=== PATIENT | female | born 1965 | race Two or more races ===

== ENCOUNTER 2020-04-17 14:42 | Outpatient (REF) | payer MEDICAID, SELFPAY | END 2020-04-17 14:43 | disposition home or self-care (01) | LOC: HO.LNP 14:42 | PROVIDERS: Visit Provider Internal Medicine Medical Oncology | DX: Z12.4 Encounter for screening for malignant neoplasm of cervix (principal) | CPT/HCPCS: 88142 ==

== ENCOUNTER 2020-05-21 11:01 | Emergency (ER) | payer MEDICAID, SELFPAY ==
--- NOTE | 2020-05-21 11:27 | ED_ITS ---
HPI - Psych General Chief Complaint: Psychiatric Symptoms <DIONISIO Henderson - Last Filed: 05/23/20 11:26> Stated Complaint: SI W/PLAN <DIONISIO Henderson - Last Filed: 05/23/20 11:26> Time Seen by Provider: 05/21/20 11:27 <DIONISIO Henderson - Last Filed: 05/23/20 11:26> Source: patient and EMS <DIONISIO Henderson - Last Filed: 05/23/20 11:26> Mode of arrival: EMS <DIONISIO Henderson - Last Filed: 05/23/20 11:26> Limitations: no limitations <DIONISIO Henderson - Last Filed: 05/23/20 11:26> History of Present Illness HPI Narrative: 55 y/o female with history of depression, anxiety, HTN, HLD and history of prior suicide attempt presents to the ED from home via EMS with reports of auditory hallucinations with voices telling her to kill herself. She reports anxiety on arrival. She has been depressed lately. She reports compliance with her antidepressant and benzo for anxiety. She is vague in her history. She is nervous and scared because of the voices. She states they are better since she got to the hospital. She denies drug or alcohol use. <DIONISIO Henderson - Last Filed: 05/23/20 11:26> MD complaint: suicidal ideation, anxiety and hallucinations <DIONISIO Henderson - Last Filed: 05/23/20 11:26> Onset (ago): day(s) <DIONISIO Henderson - Last Filed: 05/23/20 11:26> Duration: intermittent <DIONISIO Henderson - Last Filed: 05/23/20 11:26> History of same: Yes <DIONISIO Henderson - Last Filed: 05/23/20 11:26> Relieving factors: none <DIONISIO Henderson - Last Filed: 05/23/20 11:26> Exacerbating factors: none <DIONISIO Henderson - Last Filed: 05/23/20 11:26> Associated psychiatric symptoms: depression <DIONISIO Henderson - Last Filed: 05/23/20 11:26> Associated symptoms: denies other symptoms <DIONISIO Henderson - Last Filed: 05/23/20 11:26> Treatments prior to arrival: none <DIONISIO Henderson Last Filed: 05/23/20 11:26> If self harm: admits thoughts of self harm <DIONISIO Henderson Last Filed: 05/23/20 11:26> Related Data Home Medications: Home Medications Medication Instructions Recorded Confirmed benztropine 1 mg PO BID 05/21/20 05/21/20 citalopram 30 mg PO DAILY 05/21/20 05/21/20 clonazepam 1 mg PO BID 05/21/20 05/21/20 clonazepam 1 mg PO DAILY PRN 05/21/20 05/21/20 diltiazem HCl 60 mg PO BEDTIME 05/21/20 05/21/20 diltiazem HCl [Cartia XT] 240 mg PO DAILY 05/21/20 05/21/20 fluticasone propionate [Flovent 1 puff PO BID 05/21/20 05/21/20 HFA] hydroxyzine HCl 10 - 20 mg PO BID PRN 05/21/20 05/21/20 omeprazole 20 mg PO DAILY 05/21/20 05/21/20 oxcarbazepine 600 mg PO TID 05/21/20 05/21/20 perphenazine 4 mg PO BID 05/21/20 05/21/20 simvastatin 40 mg PO BEDTIME 05/21/20 05/21/20 <DIONISIO Henderson Last Filed: 05/23/20 11:26> Allergies/Adverse Reactions: Allergies Allergy/AdvReac Type Severity Reaction Status Date / Time No Known Allergies Allergy Unverified 11/10/19 16:06 [No Known Allergies*] <DIONISIO Henderson Last Filed: 05/23/20 11:26> Review of Systems Review of Systems: Constitutional: No Fever, No Chills Cardiovascular: No Chest Pain, No SOB Respiratory: No Cough, No Sputum Gastrointestinal: No Nausea, No Vomiting, No Diarrhea, No abdominal Pain Genitourinary: No Dysuria, No Urinary Frequency, No Hematuria Musculoskeletal: No joint pain, No Myalgias Skin: No Skin Lesions, No rash Neuro: No Weakness, No Numbness, No Dizziness, No Headache Psych: + Anxiety/Panic, + Depression, +AH Heme/Lymph: No Bruising, No Lymphadenopathy <DIONISIO Henderson - Last Fi led: 05/23/20 11:26> [facility] Past Medical History Attestation statement: The following information was validated with the patient. <DIONISIO Henderson - Last Filed: 05/23/20 11:26> Medical History: Medical History Anxiety Depression <DIONISIO Henderson - Last Filed: 05/23/20 11:26> Physical Exam Vital Signs: Vital Signs: Last Vital Signs Temp 97.5 F 05/23/20 08:12 Pulse 74 05/23/20 08:12 Resp 17 05/23/20 08:12 BP 143/85 H 05/23/20 08:12 Pulse Ox 98 05/23/20 08:12 Body Mass Index 26.3 Appearance: Alert. Oriented X3. No acute distress. Eyes: Pupils equal, round and reactive to light. ENT: Pharynx normal. Neck: Normal inspection. Neck supple. CVS: Normal heart rate and rhythm. Pulses normal. Respiratory: No respiratory distress. Breath sounds normal. Abdomen: Soft and nontender. +BS x4 Skin: Skin warm and dry. Normal skin color. Normal skin turgor. No rashes. Extremities: No lower extremity edema. Neuro: Oriented X 3. No motor deficit. No sensory deficit. Steady gait. Vague historian, 1 word answers. <DIONISIO Henderson - Last Filed: 05/23/20 11:26> Vital Signs: Last Vital Signs Temp 97.5 F 05/23/20 08:12 Pulse 74 05/23/20 08:12 Resp 17 05/23/20 08:12 BP 143/85 H 05/23/20 08:12 Pulse Ox 98 05/23/20 08:12 Body Mass Index 26.3 <Liberty Zacarias NP - Last Filed: 05/22/20 01:37> Vital Signs: Last Vital Signs Temp 97.5 F 05/23/20 08:12 Pulse 74 05/23/20 08:12 Resp 17 05/23/20 08:12 BP 143/85 H 05/23/20 08:12 Pulse Ox 98 05/23/20 08:12 Body Mass Index 26.3 <Dudley Matson MD - Last Filed: 06/08/20 13:38> Course Course Course Narrative: 55 y/o female presenting with hearing voices that telling her to harm herself and kill herself. Will get metabolic workup, UA, Utox and have her evaluated by N. <DIONISIO Henderson - Last Filed: 05/23/20 11:26> I have reviewed the chart <Dudley Matson MD - Last Filed: 06/08/20 13:38> Reevaluation(s) Reevaluation #1: Physician observation started at 2:15 pm. Patient placed in physician observation because patient is awaiting N evaluation for the possible need of inpatient psych admission. At the time observation was started patient's vital signs were stable. Patient is alert and oriented. Neuro exam is non-focal. CV: RRR and lungs are clear. Medication reconciliation is pending. Will continue to monitor. <DIONISIO Henderson - Last Filed: 05/23/20 11:26> MDM - Psych Lab Data Result diagrams: : 05/21/20 12:40 05/21/20 12:39 <DIONISIO Henderson - Last Filed: 05/23/20 11:26> Labs: Lab Results 05/21/20 05/21/20 05/21/20 Range/Units 12:39 12:39 12:40 WBC 6.0 (4.8-10.8) X10*3/uL RBC 3.62 L (4.20-5.50) X10*6/uL Hgb 12.7 (12.0-16.0) g/dl Hct 35.4 L (37-47) % MCV 97.8 (80-98) fL MCH 35.1 H (27.0-33.0) pg MCHC 35.9 H (31.0-35.0) g/dl RDW 12.3 (11.0-16.0) % Plt Count 165 (160-400) X10*3/uL MPV 9.0 L (9.4-12.3) fL Immature Gran % (Auto) 0.5 H (0.0-0.4) % Neut % (Auto) 60.0 (45-73) % Lymph % (Auto) 28.3 (20-40) % [place] % (Auto) 9.7 (2-11) % Eos % (Auto) 0.8 (0-4) % Baso % (Auto) 0.7 (0-2) % Lymph # (Auto) 1.7 (1.2-4.9) X10*3/uL [place] # (Auto) 0.6 (0.1-1.2) X10*3/uL Eos # (Auto) 0.1 (0.0-0.4) X10*3/uL Baso # (Auto) 0.0 (0.0-0.2) X10*3/uL Abs Immat Gran (auto) 0.03 (0.00-0.03) X10*3/uL Absolute Neuts (auto) 3.6 (2.0-8.3) X10*3/uL Absolute Nucleated RBC 0.000 (0.0-0.012) X10*3/uL Nucleated RBC % (auto) 0.0 (0.0-0.2) /100WBC Sodium 132 L (135-145) mmol/L Potassium 3.8 (3.3-5.1) mmol/L Chloride 97 (96-108) mmol/L Carbon Dioxide 25 (22-29) mmol/L Anion Gap 14 (12-20) BUN 8 L (9-16) mg/dL Creatinine 0.75 (0.5-1.4) mg/dL Estim Creat Clear Calc 76.9 Estimated GFR > 60 Random Glucose 72 (60-115) mg/dL Calcium 8.7 (8.4-10.2) mg/dL Magnesium 2.1 (1.6-2.6) mg/dL Total Bilirubin 0.3 (0.0-1.0) mg/dL Direct Bilirubin 0.2 (0.0-0.5) mg/dL AST 24 (5-31) U/L ALT 21 (0-31) U/L Alkaline Phosphatase 78 (39-117) U/L Total Protein 7.6 (6.5-8.0) g/dL Albumin 4.6 (3.5-5.0) g/dL Urine Color Urine Appearance Urine pH (5.0-8.0) Ur Specific [place] (1.005-1.025) Urine Protein (NEG-TRACE) MG/DL Urine Glucose (UA) (NEG) MG/DL Urine Ketones (NEG) MG/DL Urine Blood (NEG) Urine Nitrite (NEG) Ur Leukocyte Esterase (NEG) Urine RBC (0) /HPF Urine WBC (0-4) /HPF Ur Squamous Epith Cells /LPF Amorphous Sediment /LPF Urine Bacteria /LPF Urine Opiates Screen (Not Detect) Ur Barbiturates Screen (Not Detect) Ur Phencyclidine Scrn (Not Detect) Ur Amphetamines Screen (Not Detect) U Benzodiazepines Scrn (Not Detect) Urine Cocaine Screen (Not Detect) U Marijuana (THC) Screen (Not Detect) Ethyl Alcohol mg/dL COVID-19 ([facility]) Negative (Negative) COVID-19 Clin Com See Note 05/21/20 05/21/20 05/21/20 Range/Units 12:40 12:40 12:40 WBC (4.8-10.8) X10*3/uL RBC (4.20-5.50) X10*6/uL Hgb (12.0-16.0) g/dl Hct (37-47) % MCV (80-98) fL MCH (27.0-33.0) pg MCHC (31.0-35.0) g/dl RDW (11.0-16.0) % Plt Count (160-400) X10*3/uL MPV (9.4-12.3) fL Immature Gran % (Auto) (0.0-0.4) % Neut % (Auto) (45-73) % Lymph % (Auto) (20-40) % [place] % (Auto) (2-11) % Eos % (Auto) (0-4) % Baso % (Auto) (0-2) % Lymph # (Auto) (1.2-4.9) X10*3/uL [place] # (Auto) (0.1-1.2) X10*3/uL Eos # (Auto) (0.0-0.4) X10*3/uL Baso # (Auto) (0.0-0.2) X10*3/uL Abs Immat Gran (auto) (0.00-0.03) X10*3/uL Absolute Neuts (auto) (2.0-8.3) X10*3/uL Absolute Nucleated RBC (0.0-0.012) X10*3/uL Nucleated RBC % (auto) (0.0-0.2) /100WBC Sodium (135-145) mmol/L Potassium (3.3-5.1) mmol/L Chloride (96-108) mmol/L Carbon Dioxide (22-29) mmol/L Anion Gap (12-20) BUN (9-16) mg/dL Creatinine (0.5-1.4) mg/dL Estim Creat Clear Calc Estimated GFR Random Glucose (60-115) mg/dL Calcium (8.4-10.2) mg/dL Magnesium (1.6-2.6) mg/dL Total Bilirubin (0.0-1.0) mg/dL Direct Bilirubin (0.0-0.5) mg/dL AST (5-31) U/L ALT (0-31) U/L Alkaline Phosphatase (39-117) U/L Total Protein (6.5-8.0) g/dL Albumin (3.5-5.0) g/dL Urine Color YELLOW Urine Appearance HAZY Urine pH 7.0 (5.0-8.0) Ur Specific [place] 1.015 (1.005-1.025) Urine Protein NEG (NEG-TRACE) MG/DL Urine Glucose (UA) NEG (NEG) MG/DL Urine Ketones NEG (NEG) MG/DL Urine Blood 2+ H (NEG) Urine Nitrite NEG (NEG) Ur Leukocyte Esterase TRACE H (NEG) Urine RBC 10-14 H (0) /HPF Urine WBC 0-2 (0-4) /HPF Ur Squamous Epith Cells 2+ /LPF Amorphous Sediment 3+ /LPF Urine Bacteria NONE /LPF Urine Opiates Screen Not Detected (Not Detect) Ur Barbiturates Screen Not Detected (Not Detect) Ur Phencyclidine Scrn Not Detected (Not Detect) Ur Amphetamines Screen Not Detected (Not Detect) U Benzodiazepines Scrn Not Detected (Not Detect) Urine Cocaine Screen Not Detected (Not Detect) U Marijuana (THC) Screen POSITIVE H (Not Detect) Ethyl Alcohol < 10 mg/dL COVID-19 ([facility]) (Negative) COVID-19 Clin Com <DIONISIO Henderson - Last Filed: 05/23/20 11:26> Lab Results 05/21/20 05/21/20 05/21/20 Range/Units 12:39 12:39 12:40 WBC 6.0 (4.8-10.8) X10*3/uL RBC 3.62 L (4.20-5.50) X10*6/uL Hgb 12.7 (12.0-16.0) g/dl Hct 35.4 L (37-47) % MCV 97.8 (80-98) fL MCH 35.1 H (27.0-33.0) pg MCHC 35.9 H (31.0-35.0) g/dl RDW 12.3 (11.0-16.0) % Plt Count 165 (160-400) X10*3/uL MPV 9.0 L (9.4-12.3) fL Immature Gran % (Auto) 0.5 H (0.0-0.4) % Neut % (Auto) 60.0 (45-73) % Lymph % (Auto) 28.3 (20-40) % [place] % (Auto) 9.7 (2-11) % Eos % (Auto) 0.8 (0-4) % Baso % (Auto) 0.7 (0-2) % Lymph # (Auto) 1.7 (1.2-4.9) X10*3/uL [place] # (Auto) 0.6 (0.1-1.2) X10*3/uL Eos # (Auto) 0.1 (0.0-0.4) X10*3/uL Baso # (Auto) 0.0 (0.0-0.2) X10*3/uL Abs Immat Gran (auto) 0.03 (0.00-0.03) X10*3/uL Absolute Neuts (auto) 3.6 (2.0-8.3) X10*3/uL Absolute Nucleated RBC 0.000 (0.0-0.012) X10*3/uL Nucleated RBC % (auto) 0.0 (0.0-0.2) /100WBC Sodium 132 L (135-145) mmol/L Potassium 3.8 (3.3-5.1) mmol/L Chloride 97 (96-108) mmol/L Carbon Dioxide 25 (22-29) mmol/L Anion Gap 14 (12-20) BUN 8 L (9-16) mg/dL Creatinine 0.75 (0.5-1.4) mg/dL Estim Creat Clear Calc 76.9 Estimated GFR > 60 Random Glucose 72 (60-115) mg/dL Calcium 8.7 (8.4-10.2) mg/dL Magnesium 2.1 (1.6-2.6) mg/dL Total Bilirubin 0.3 (0.0-1.0) mg/dL Direct Bilirubin 0.2 (0.0-0.5) mg/dL AST 24 (5-31) U/L ALT 21 (0-31) U/L Alkaline Phosphatase 78 (39-117) U/L Total Protein 7.6 (6.5-8.0) g/dL Albumin 4.6 (3.5-5.0) g/dL Urine Color Urine Appearance Urine pH (5.0-8.0) Ur Specific [place] (1.005-1.025) Urine Protein (NEG-TRACE) MG/DL Urine Glucose (UA) (NEG) MG/DL Urine Ketones (NEG) MG/DL Urine Blood (NEG) Urine Nitrite (NEG) Ur Leukocyte Esterase (NEG) Urine RBC (0) /HPF Urine WBC (0-4) /HPF Ur Squamous Epith Cells /LPF Amorphous Sediment /LPF Urine Bacteria /LPF Urine Opiates Screen (Not Detect) Ur Barbiturates Screen (Not Detect) Ur Phencyclidine Scrn (Not Detect) Ur Amphetamines Screen (Not Detect) U Benzodiazepines Scrn (Not Detect) Urine Cocaine Screen (Not Detect) U Marijuana (THC) Screen (Not Detect) Ethyl Alcohol mg/dL COVID-19 ([facility]) Negative (Negative) COVID-19 Clin Com See Note 05/21/20 05/21/20 05/21/20 Range/Units 12:40 12:40 12:40 WBC (4.8-10.8) X10*3/uL RBC (4.20-5.50) X10*6/uL Hgb (12.0-16.0) g/dl Hct (37-47) % MCV (80-98) fL MCH (27.0-33.0) pg MCHC (31.0-35.0) g/dl RDW (11.0-16.0) % Plt Count (160-400) X10*3/uL MPV (9.4-12.3) fL Immature Gran % (Auto) (0.0-0.4) % Neut % (Auto) (45-73) % Lymph % (Auto) (20-40) % [place] % (Auto) (2-11) % Eos % (Auto) (0-4) % Baso % (Auto) (0-2) % Lymph # (Auto) (1.2-4.9) X10*3/uL [place] # (Auto) (0.1-1.2) X10*3/uL Eos # (Auto) (0.0-0.4) X10*3/uL Baso # (Auto) (0.0-0.2) X10*3/uL Abs Immat Gran (auto) (0.00-0.03) X10*3/uL Absolute Neuts (auto) (2.0-8.3) X10*3/uL Absolute Nucleated RBC (0.0-0.012) X10*3/uL Nucleated RBC % (auto) (0.0-0.2) /100WBC Sodium (135-145) mmol/L Potassium (3.3-5.1) mmol/L Chloride (96-108) mmol/L Carbon Dioxide (22-29) mmol/L Anion Gap (12-20) BUN (9-16) mg/dL Creatinine (0.5-1.4) mg/dL Estim Creat Clear Calc Estimated GFR Random Glucose (60-115) mg/dL Calcium (8.4-10.2) mg/dL Magnesium (1.6-2.6) mg/dL Total Bilirubin (0.0-1.0) mg/dL Direct Bilirubin (0.0-0.5) mg/dL AST (5-31) U/L ALT (0-31) U/L Alkaline Phosphatase (39-117) U/L Total Protein (6.5-8.0) g/dL Albumin (3.5-5.0) g/dL Urine Color YELLOW Urine Appearance HAZY Urine pH 7.0 (5.0-8.0) Ur Specific [place] 1.015 (1.005-1.025) Urine Protein NEG (NEG-TRACE) MG/DL Urine Glucose (UA) NEG (NEG) MG/DL Urine Ketones NEG (NEG) MG/DL Urine Blood 2+ H (NEG) Urine Nitrite NEG (NEG) Ur Leukocyte Esterase TRACE H (NEG) Urine RBC 10-14 H (0) /HPF Urine WBC 0-2 (0-4) /HPF Ur Squamous Epith Cells 2+ /LPF Amorphous Sediment 3+ /LPF Urine Bacteria NONE /LPF Urine Opiates Screen Not Detected (Not Detect) Ur Barbiturates Screen Not Detected (Not Detect) Ur Phencyclidine Scrn Not Detected (Not Detect) Ur Amphetamines Screen Not Detected (Not Detect) U Benzodiazepines Scrn Not Detected (Not Detect) Urine Cocaine Screen Not Detected (Not Detect) U Marijuana (THC) Screen POSITIVE H (Not Detect) Ethyl Alcohol < 10 mg/dL COVID-19 ([facility]) (Negative) COVID-19 Clin Com <Liberty Zacarias NP - Last Filed: 05/22/20 01:37> Lab Results 05/21/20 05/21/20 05/21/20 Range/Units 12:39 12:39 12:40 WBC 6.0 (4.8-10.8) X10*3/uL RBC 3.62 L (4.20-5.50) X10*6/uL Hgb 12.7 (12.0-16.0) g/dl Hct 35.4 L (37-47) % MCV 97.8 (80-98) fL MCH 35.1 H (27.0-33.0) pg MCHC 35.9 H (31.0-35.0) g/dl RDW 12.3 (11.0-16.0) % Plt Count 165 (160-400) X10*3/uL MPV 9.0 L (9.4-12.3) fL Immature Gran % (Auto) 0.5 H (0.0-0.4) % Neut % (Auto) 60.0 (45-73) % Lymph % (Auto) 28.3 (20-40) % [place] % (Auto) 9.7 (2-11) % Eos % (Auto) 0.8 (0-4) % Baso % (Auto) 0.7 (0-2) % Lymph # (Auto) 1.7 (1.2-4.9) X10*3/uL [place] # (Auto) 0.6 (0.1-1.2) X10*3/uL Eos # (Auto) 0.1 (0.0-0.4) X10*3/uL Baso # (Auto) 0.0 (0.0-0.2) X10*3/uL Abs Immat Gran (auto) 0.03 (0.00-0.03) X10*3/uL Absolute Neuts (auto) 3.6 (2.0-8.3) X10*3/uL Absolute Nucleated RBC 0.000 (0.0-0.012) X10*3/uL Nucleated RBC % (auto) 0.0 (0.0-0.2) /100WBC Sodium 132 L (135-145) mmol/L Potassium 3.8 (3.3-5.1) mmol/L Chloride 97 (96-108) mmol/L Carbon Dioxide 25 (22-29) mmol/L Anion Gap 14 (12-20) BUN 8 L (9-16) mg/dL Creatinine 0.75 (0.5-1.4) mg/dL Estim Creat Clear Calc 76.9 Estimated GFR > 60 Random Glucose 72 (60-115) mg/dL Calcium 8.7 (8.4-10.2) mg/dL Magnesium 2.1 (1.6-2.6) mg/dL Total Bilirubin 0.3 (0.0-1.0) mg/dL Direct Bilirubin 0.2 (0.0-0.5) mg/dL AST 24 (5-31) U/L ALT 21 (0-31) U/L Alkaline Phosphatase 78 (39-117) U/L Total Protein 7.6 (6.5-8.0) g/dL Albumin 4.6 (3.5-5.0) g/dL Urine Color Urine Appearance Urine pH (5.0-8.0) Ur Specific [place] (1.005-1.025) Urine Protein (NEG-TRACE) MG/DL Urine Glucose (UA) (NEG) MG/DL Urine Ketones (NEG) MG/DL Urine Blood (NEG) Urine Nitrite (NEG) Ur Leukocyte Esterase (NEG) Urine RBC (0) /HPF Urine WBC (0-4) /HPF Ur Squamous Epith Cells /LPF Amorphous Sediment /LPF Urine Bacteria /LPF Urine Opiates Screen (Not Detect) Ur Barbiturates Screen (Not Detect) Ur Phencyclidine Scrn (Not Detect) Ur Amphetamines Screen (Not Detect) U Benzodiazepines Scrn (Not Detect) Urine Cocaine Screen (Not Detect) U Marijuana (THC) Screen (Not Detect) Ethyl Alcohol mg/dL COVID-19 ([facility]) Negative (Negative) COVID-19 Clin Com See Note 05/21/20 05/21/20 05/21/20 Range/Units 12:40 12:40 12:40 WBC (4.8-10.8) X10*3/uL RBC (4.20-5.50) X10*6/uL Hgb (12.0-16.0) g/dl Hct (37-47) % MCV (80-98) fL MCH (27.0-33.0) pg MCHC (31.0-35.0) g/dl RDW (11.0-16.0) % Plt Count (160-400) X10*3/uL MPV (9.4-12.3) fL Immature Gran % (Auto) (0.0-0.4) % Neut % (Auto) (45-73) % Lymph % (Auto) (20-40) % [place] % (Auto) (2-11) % Eos % (Auto) (0-4) % Baso % (Auto) (0-2) % Lymph # (Auto) (1.2-4.9) X10*3/uL [place] # (Auto) (0.1-1.2) X10*3/uL Eos # (Auto) (0.0-0.4) X10*3/uL Baso # (Auto) (0.0-0.2) X10*3/uL Abs Immat Gran (auto) (0.00-0.03) X10*3/uL Absolute Neuts (auto) (2.0-8.3) X10*3/uL Absolute Nucleated RBC (0.0-0.012) X10*3/uL Nucleated RBC % (auto) (0.0-0.2) /100WBC Sodium (135-145) mmol/L Potassium (3.3-5.1) mmol/L Chloride (96-108) mmol/L Carbon Dioxide (22-29) mmol/L Anion Gap (12-20) BUN (9-16) mg/dL Creatinine (0.5-1.4) mg/dL Estim Creat Clear Calc Estimated GFR Random Glucose (60-115) mg/dL Calcium (8.4-10.2) mg/dL Magnesium (1.6-2.6) mg/dL Total Bilirubin (0.0-1.0) mg/dL Direct Bilirubin (0.0-0.5) mg/dL AST (5-31) U/L ALT (0-31) U/L Alkaline Phosphatase (39-117) U/L Total Protein (6.5-8.0) g/dL Albumin (3.5-5.0) g/dL Urine Color YELLOW Urine Appearance HAZY Urine pH 7.0 (5.0-8.0) Ur Specific [place] 1.015 (1.005-1.025) Urine Protein NEG (NEG-TRACE) MG/DL Urine Glucose (UA) NEG (NEG) MG/DL Urine Ketones NEG (NEG) MG/DL Urine Blood 2+ H (NEG) Urine Nitrite NEG (NEG) Ur Leukocyte Esterase TRACE H (NEG) Urine RBC 10-14 H (0) /HPF Urine WBC 0-2 (0-4) /HPF Ur Squamous Epith Cells 2+ /LPF Amorphous Sediment 3+ /LPF Urine Bacteria NONE /LPF Urine Opiates Screen Not Detected (Not Detect) Ur Barbiturates Screen Not Detected (Not Detect) Ur Phencyclidine Scrn Not Detected (Not Detect) Ur Amphetamines Screen Not Detected (Not Detect) U Benzodiazepines Scrn Not Detected (Not Detect) Urine Cocaine Screen Not Detected (Not Detect) U Marijuana (THC) Screen POSITIVE H (Not Detect) Ethyl Alcohol < 10 mg/dL COVID-19 ([facility]) (Negative) COVID-19 Clin Com <Dudley Matson MD - Last Filed: 06/08/20 13:38> Discharge Plan Discharge Patient Disposition: Xfer Psychiatric Hosp <DIONISIO Henderson - Last Filed: 05/23/20 11:26> Prescriptions: No Action diltiazem HCl [Cartia XT] 240 mg capsule,extended release 24hr 240 mg PO DAILY RF: 0 clonazepam 1 mg tablet 1 mg PO DAILY PRN (Reason: Insomnia) RF: 0 clonazepam 1 mg tablet 1 mg PO BID RF: 0 simvastatin 40 mg tablet 40 mg PO BEDTIME RF: 0 citalopram 20 mg tablet 30 mg PO DAILY RF: 0 Flovent HFA 44 mcg/actuation HFA aerosol inhaler 1 puff PO BID RF: 0 benztropine 1 mg tablet 1 mg PO BID RF: 0 perphenazine 4 mg tablet 4 mg PO BID RF: 0 omeprazole 20 mg capsule,delayed release(DR/EC) 20 mg PO DAILY RF: 0 oxcarbazepine 600 mg tablet 600 mg PO TID RF: 0 hydroxyzine HCl 10 mg tablet 10 - 20 mg PO BID PRN (Reason: Anxiety) RF: 0 diltiazem HCl 60 mg tablet 60 mg PO BEDTIME RF: 0 <DIONISIO Henderson - Last Filed: 05/23/20 11:26> Interventions: Acute Care Transfer Worksheet (ED) Last Done: 05/23/20 09:48 <DIONISIO Henderson - Last Filed: 05/23/20 11:26> Discharge Date/Time: 05/23/20 09:54 <DIONISIO Henderson - Last Filed: 05/23/20 11:26>
[2020-05-21 11:32] VITALS: BP 158/83; PULSE 82; RESP 20; TEMP 36.7; O2SAT 100; BMI 26.3
[2020-05-21] MEDS: LORazepam 0.5 MG TABLET PO (11:57)
[2020-05-21 12:48] LABS: MANUAL DIFF FLAG NO
[2020-05-21 12:52] LABS: Basophils Percent Auto 0.7 % (0-2); Eosinophils Absolute Auto 0.1 X10*3/uL (0.0-0.4); Eosinophils Percent Auto 0.8 % (0-4); Hematocrit 35.4 % (37-47); Hemoglobin 12.7 g/dl (12.0-16.0); Imm Gran Abs Auto 0.03 X10*3/uL (0.00-0.03); Imm Gran Pct Auto 0.5 % (0.0-0.4); Lymphocytes Absolute Auto 1.7 X10*3/uL (1.2-4.9); Lymphocytes Percent Auto 28.3 % (20-40); Mean Corpuscular HGB Conc 35.9 g/dl (31.0-35.0); Mean Corpuscular Hemoglobin 35.1 pg (27.0-33.0); Mean Corpuscular Volume 97.8 fL (80-98); Monocytes Absolute Auto 0.6 X10*3/uL (0.1-1.2); Monocytes Percent Auto 9.7 % (2-11); Neutrophils Absolute Auto 3.6 X10*3/uL (2.0-8.3); Platelet Count 165 X10*3/uL (160-400); Red Blood Count 3.62 X10*6/uL (4.20-5.50); Red Cell Distribution Width 12.3 % (11.0-16.0)
[2020-05-21 12:56] LABS: Appearance Urine HAZY; Color Urine YELLOW; Glucose Urine UA NEG (NEG); Leukocyte Esterase Urine TRACE (NEG); Nitrite Urine NEG (NEG); Specific Gravity - Urine 1.015 (1.005-1.025); UACC Culture Trigger YES; Urine Blood 2+ (NEG); Urine Ketones NEG (NEG); Urine Protein NEG (NEG-TRACE)
[2020-05-21 13:03] LABS: Amorphous Sediment Urine 3+ /LPF; Squamous Epithelial Cell Urine 2+ /LPF; WBC Urine 0-2 /HPF (0-4)
[2020-05-21 13:08] LABS: COVID-19 Test Negative (Negative)
[2020-05-21 13:20] LABS: Ethanol < 10 mg/dL
[2020-05-21 13:23] LABS: Alanine Aminotransferase 21 U/L (0-31); Albumin Level 4.6 g/dL (3.5-5.0); Alkaline Phosphatase 78 U/L (39-117); Anion Gap 14 (12-20); Aspartate Amino Transferase 24 U/L (5-31); Bilirubin Direct 0.2 mg/dL (0.0-0.5); Bilirubin Total 0.3 mg/dL (0.0-1.0); Blood Urea Nitrogen 8 mg/dL (9-16); Calcium 8.7 mg/dL (8.4-10.2); Carbon Dioxide 25 mmol/L (22-29); Chloride 97 mmol/L (96-108); Creatinine Clr Calc Pharmacy 76.9; Estimated Glomerular Filt Rate > 60; Glucose Random 72 mg/dL (60-115); Magnesium 2.1 mg/dL (1.6-2.6); Potassium 3.8 mmol/L (3.3-5.1); Sodium 132 mmol/L (135-145); Total Protein 7.6 g/dL (6.5-8.0)
[2020-05-21 13:25] LABS: Amphetamine Screen Urine Not Detected (Not Detect); Barbiturates, Urine Not Detected (Not Detect); Benzodiazepines Screen Urine Not Detected (Not Detect); Cannabinoid Screen Urine POSITIVE (Not Detect); Cocaine Screen Urine Not Detected (Not Detect); Opiate Screen Urine Not Detected (Not Detect); Phencyclidine Screen Urine Not Detected (Not Detect)
[2020-05-21 15:40] VITALS: BP 133/88; PULSE 88; RESP 18; TEMP 36.4; O2SAT 99
--- NOTE | 2020-05-21 17:45 | PC.NURSE ---
patients son wants to be called if she gets discharged. [phone] , Wilfredo Manning.
--- NOTE | 2020-05-21 18:10 | PC.NURSE ---
[facility] has been faxed. confirmed receipt.
[2020-05-21 18:11] VITALS: BP 122/78; PULSE 88; RESP 16; TEMP 36.8; O2SAT 98
--- NOTE | 2020-05-21 19:14 | PC.NURSE ---
Report received. PT is sleeping in bed. Respirations even and unlabored. PT is waiting to be seen by N.
[2020-05-21 21:27] VITALS: BP 136/75; PULSE 95; RESP 12; O2SAT 99
[2020-05-21 21:33] VITALS: BP 136/75; PULSE 99
[2020-05-21] MEDS: dilTIAZem HCL 30 MG TABLET 60 MG PO (21:33)
[2020-05-21] MEDS: Benztropine Mesylate 1 MG TABLET PO (21:35)
[2020-05-21] MEDS: clonazePAM 1 MG TABLET PO (21:35)
[2020-05-21] MEDS: Atorvastatin Calcium 20 MG TABLET PO (21:35)
[2020-05-21] MEDS: Perphenazine 4 MG TABLET PO (21:37)
[2020-05-21] MEDS: OXcarbazepine 300 MG TABLET 600 MG PO (21:37)
--- NOTE | 2020-05-22 00:34 | PC.NURSE ---
[facility] at bed side.
[2020-05-22] MEDS: Omeprazole 20 MG CAPSULE.DR PO (06:38)
--- NOTE | 2020-05-22 07:41 | PC.NURSE ---
Pt sleeping in room. Respirations even/unlabored bilaterally. No sign of distress. Will continue to monitor.
[2020-05-22 09:16] VITALS: BP 145/82; PULSE 64
[2020-05-22] MEDS: Perphenazine 4 MG TABLET PO ×2 (09:16→21:39)
[2020-05-22] MEDS: dilTIAZem HCL CD 240 MG CAP.ER.DEG PO (09:16)
[2020-05-22] MEDS: OXcarbazepine 300 MG TABLET 600 MG PO ×3 (09:16→21:43)
[2020-05-22] MEDS: Benztropine Mesylate 1 MG TABLET PO ×2 (09:16→21:43)
[2020-05-22] MEDS: clonazePAM 1 MG TABLET PO ×2 (09:16→21:43)
[2020-05-22 10:03] VITALS: BP 145/82; PULSE 64; RESP 16; TEMP 36.4; O2SAT 98
[2020-05-22 18:45] VITALS: BP 141/84; PULSE 72; RESP 15; TEMP 36.6; O2SAT 98
--- NOTE | 2020-05-22 19:31 | PC.NURSE ---
Report received. PT is sleeping in bed. Respirations even and unlabored. PT is inpatient bed search.
[2020-05-22] MEDS: Atorvastatin Calcium 20 MG TABLET PO (21:39)
[2020-05-22 21:40] VITALS: BP 139/82; PULSE 78
[2020-05-22] MEDS: dilTIAZem HCL 30 MG TABLET 60 MG PO (21:40)
--- NOTE | 2020-05-22 22:17 | PC.NURSE ---
Gardenia from [facility] called and stated that they found an available bed for the PT at [facility] in [facility]. Dr. Brewster is admitting doctor. ETA is 12:00 on 05/23/20
--- NOTE | 2020-05-22 23:55 | PC.NURSE ---
Patient in bed appears sleeping, no distress observed/reported at this time, per report patient has been accepted to [facility] which seems not right, called [facility] spoke with Juliette and she notified that patient has been accepted to [facility] in [facility], transfer paper work completed and submitted to ED carton catcher, will continue to monitor.
[2020-05-23] MEDS: Omeprazole 20 MG CAPSULE.DR PO (05:20)
[2020-05-23] MEDS: clonazePAM 1 MG TABLET PO ×2 (05:20→08:23)
[2020-05-23 05:21] VITALS: BP 176/79; PULSE 68; RESP 17; TEMP 36.1; O2SAT 98
--- NOTE | 2020-05-23 07:15 | PC.NURSE ---
Report received from Shawn campoverde. Pt sleeping at this time, resp reg and even. NAD. Awaiting amb ride to the [facility].
[2020-05-23 08:12] VITALS: BP 143/85; PULSE 74; RESP 17; TEMP 36.4; O2SAT 98
[2020-05-23] MEDS: OXcarbazepine 300 MG TABLET 600 MG PO (08:23)
[2020-05-23] MEDS: Benztropine Mesylate 1 MG TABLET PO (08:23)
--- NOTE | 2020-05-23 12:19 | PC.NURSE ---
THIS RN SPOKE W/ STAFF FROM [facility] ADVISING PT WAS TAKEN TO [facility] WHEN THEY [facility]ERE SUPPOSED TO GO TO [facility] [place] [facility] FILLED OUT AND FAXED TO LEVI AT [facility] PER [facility] REQUEST[facility]
== END 2020-05-23 09:54 ==
PROVIDERS: Physician Assistant; Emergency Provider Emergency Medicine; PCP Internal Medicine Medical Oncology
DX: F41.9 Anxiety disorder, unspecified (principal); R45.851 Suicidal ideations; R44.0 Auditory hallucinations; Z20.822 Contact with and (suspected) exposure to COVID-19; F32.9 Major depressive disorder, single episode, unspecified; I10 Essential (primary) hypertension; E78.5 Hyperlipidemia, unspecified; F12.90 Cannabis use, unspecified, uncomplicated; Z91.5 Personal history of self-harm; Z79.82 Long term (current) use of aspirin; Z79.899 Other long term (current) drug therapy
CPT/HCPCS: 36415; 80048; 80076; 80307; 80320; 81001; 81003; 83735; 85025; 87086; 87635; 99285

== ENCOUNTER 2020-06-05 11:07 | Outpatient (REF) | payer MEDICAID, SELFPAY ==
[2020-06-05 12:17] LABS: MANUAL DIFF FLAG NO
[2020-06-05 12:24] LABS: Basophils Percent Auto 0.3 % (0-2); Eosinophils Absolute Auto 0.1 X10*3/uL (0.0-0.4); Eosinophils Percent Auto 1.4 % (0-4); Hematocrit 35.4 % (37-47); Hemoglobin 12.2 g/dl (12.0-16.0); Imm Gran Abs Auto 0.03 X10*3/uL (0.00-0.03); Imm Gran Pct Auto 0.5 % (0.0-0.4); Lymphocytes Absolute Auto 1.8 X10*3/uL (1.2-4.9); Lymphocytes Percent Auto 27.7 % (20-40); Mean Corpuscular HGB Conc 34.5 g/dl (31.0-35.0); Mean Corpuscular Hemoglobin 34.6 pg (27.0-33.0); Mean Corpuscular Volume 100.3 fL (80-98); Mean Platelet Volume 10.1 fL (9.4-12.3); Monocytes Absolute Auto 0.6 X10*3/uL (0.1-1.2); Monocytes Percent Auto 9.3 % (2-11); Neutrophils Percent Auto 60.8 % (45-73); Platelet Count 171 X10*3/uL (160-400); Red Blood Count 3.53 X10*6/uL (4.20-5.50); Red Cell Distribution Width 12.6 % (11.0-16.0); White Blood Count 6.5 X10*3/uL (4.8-10.8)
[2020-06-05 12:40] LABS: Alanine Aminotransferase 19 U/L (0-31); Albumin Level 4.5 g/dL (3.5-5.0); Alkaline Phosphatase 79 U/L (39-117); Anion Gap 11 (12-20); Aspartate Amino Transferase 23 U/L (5-31); Bilirubin Total 0.4 mg/dL (0.0-1.0); Blood Urea Nitrogen 12 mg/dL (9-16); Calcium 9.4 mg/dL (8.4-10.2); Carbon Dioxide 28 mmol/L (22-29); Chloride 103 mmol/L (96-108); Cholesterol 170 mg/dL; Estimated Glomerular Filt Rate > 60; Glucose Fasting 90 mg/dL (60-99); HDL Cholesterol 72 mg/dL; LDL Cholesterol Calculated 86 mg/dl; Potassium 4.5 mmol/L (3.3-5.1); Sodium 137 mmol/L (135-145); Total Protein 7.4 g/dL (6.5-8.0); Triglycerides 63 mg/dL
[2020-06-05 13:04] LABS: Free T4 (Free Thyroxine) 0.73 ng/dL (0.71-1.85); Thyroid Stimulating Hormone 0.62 uIU/mL (0.32-4.0)
== END 2020-06-05 11:08 | disposition home or self-care (01) ==
LOC: HO.10HDL 11:07
PROVIDERS: Visit Provider Internal Medicine Medical Oncology
DX: I10 Essential (primary) hypertension (principal); D64.9 Anemia, unspecified; E78.5 Hyperlipidemia, unspecified; E66.3 Overweight
CPT/HCPCS: 36415; 80053; 80061; 84439; 84443; 85025

== ENCOUNTER 2020-08-07 12:31 | Outpatient (REF) | payer MEDICAID, SELFPAY ==
[2020-08-07 14:11] LABS: Glucose Urine UA NEG (NEG); Leukocyte Esterase Urine NEG (NEG); Nitrite Urine NEG (NEG); PH 6.5 (5.0-8.0); Specific Gravity - Urine 1.015 (1.005-1.025); Urine Blood 1+ (NEG); Urine Ketones 5 MG/DL (NEG); Urine Protein NEG (NEG-TRACE)
[2020-08-07 14:20] LABS: Appearance Urine HAZY; Color Urine YELLOW
[2020-08-07 14:37] LABS: Renal Epithelial Cells Urine TRACE /LPF; Squamous Epithelial Cell Urine TRACE /LPF; WBC Urine 0 /HPF (0-4)
[2020-08-07 15:10] LABS: Creatinine Urine 198.93 mg/dL; Microalbum/Creatinine Ratio Ur 14.5 ug/mg cr
== END 2020-08-07 12:32 | disposition home or self-care (01) ==
LOC: HO.10HDL 12:31
PROVIDERS: Visit Provider Internal Medicine Medical Oncology
DX: R35.0 Frequency of micturition (principal)
CPT/HCPCS: 81001; 82043; 87086

== ENCOUNTER 2020-11-23 09:16 | Emergency (ER) | payer MEDICAID, SELFPAY ==
--- NOTE | ~2020-11-23 | CT_ITS ---
EXAMINATION: CT HEAD WITHOUT CONTRAST CLINICAL INFORMATION: Headache. Fall. COMPARISON: Previous head CT March 2019 TECHNIQUE: Contiguous axial imaging was performed from the skull base to vertex without intravenous administration of contrast. This CT examination was performed using dose optimization techniques as appropriate, variously including the following: *Automated exposure control *Adjustment of mA and/or kV according to patient size (this includes techniques or standardized protocols for targeted exams where dose is matched to indication/reason for exam; i.e. extremities or head) *Use of iterative reconstruction technique DLP: 577 mGy-cm FINDINGS: There is no evidence of acute intracranial hemorrhage or territorial infarction. No abnormal mass effect or midline shift is seen. Isabel-white matter differentiation is preserved. No extra-axial fluid collections are identified. The ventricles are normal in size. There is no abnormal attenuation within the brain parenchyma. The osseous structures and soft tissues are normal. The mastoid air cells and visualized portions of the paranasal sinuses are well aerated. CT/CT head/brain wo con IMPRESSION: Unremarkable exam.
[2020-11-23 09:20] VITALS: BP 151/79; PULSE 65; RESP 14; TEMP 37.1; O2SAT 100; BMI 24.0
--- NOTE | 2020-11-23 09:22 | ED_ITS ---
HPI - Seizure General Chief Complaint: Seizure Stated Complaint: seizure Time Seen by Provider: 11/23/20 09:20 Source: patient, EMS, old records reviewed and other (I called staff at skilled nursing) Mode of arrival: EMS Limitations: altered mental status (cognitive impairment) History of Present Illness MD complaint: other (found laying face down by staff - no trauma, unsure if she fell, no seizure activity seen) Onset (ago): minute(s) Description of Episode: loss of consciousness (unsure staff state possibly 5 seconds - at baseline when she woke up) Duration of episode: 5 Witnessed: No (staff found her laying face down after coming in from inside) Trauma: No Seizure History: No Place: adult day program Possible Precipitating Event: other (does not smoke cigarettes at home only in AM at day program complains every day after she has her first cigarette that she is dizzy) Associated symptoms: denies other symptoms and other (states she feels fine now) Treatments prior to arrival: none Related Data Home Medications Medication Instructions Recorded Confirmed benztropine 1 mg tablet 1 mg PO BID 05/21/20 05/21/20 citalopram 20 mg tablet 30 mg PO DAILY 05/21/20 05/21/20 clonazepam 1 mg tablet 1 mg PO BID 05/21/20 05/21/20 clonazepam 1 mg tablet 1 mg PO DAILY PRN 05/21/20 05/21/20 diltiazem HCl 240 mg 240 mg PO DAILY 05/21/20 05/21/20 capsule,extended release 24 hr (Cartia XT) diltiazem HCl 60 mg tablet 60 mg PO BEDTIME 05/21/20 05/21/20 fluticasone propionate 44 1 puff PO BID 05/21/20 05/21/20 mcg/actuation HFA aerosol inhaler (Flovent HFA) hydroxyzine HCl 10 mg tablet 10 - 20 mg PO BID PRN 05/21/20 05/21/20 omeprazole 20 mg capsule,delayed 20 mg PO DAILY 05/21/20 05/21/20 release oxcarbazepine 600 mg tablet 600 mg PO TID 05/21/20 05/21/20 perphenazine 4 mg tablet 4 mg PO BID 05/21/20 05/21/20 simvastatin 40 mg tablet 40 mg PO BEDTIME 05/21/20 05/21/20 Previous Rx's Medication Instructions Recorded cefuroxime axetil 250 mg tablet 250 mg PO BID 7 Days #14 tab 11/23/20 Allergies Allergy/AdvReac Type Severity Reaction Status Date / Time No Known Allergies Allergy Unverified 11/10/19 16:06 [No Known Allergies*] Review of Systems Review of Systems: Constitutional : No Fever, No Chills ENT/Mouth : No sore throat, No Rhinorrhea Eyes: No Eye Pain, No Swelling, No Redness Cardiovascular : No Chest Pain, No SOB Respiratory : No Cough, No Sputum, No Wheezing Gastrointestinal : No Nausea, No Vomiting, No Diarrhea Genitourinary : No Dysuria, No Urinary Frequency, No Hematuria, Musculoskeletal : No joint pain, No Myalgias, No Joint Swelling Skin : No Skin Lesions, No rash Neuro : No Weakness, No Numbness, No Dizziness, No Headache Psych : No Anxiety/Panic, No Depression Heme/Lymph: No Bruising, No Bleeding,No Lymphadenopathy Endocrine : No Polyuria, No Polydipsia All other systems reviewed and are negative [facility] Past Medical History Attestation statement: The following information was validated with the patient. Medical History Anxiety Depression GERD (gastroesophageal reflux disease) HTN (hypertension) Social History Social History (Updated 11/23/20 @ 09:41 by Bette Taylor DO) Patient Tobacco Use Status: Current someday Tobacco user Use of substances other than those prescribed or required for medical reasons: No Advance Directives: No Advance Directives Information Provided: No Physical Exam Vital Signs: Vital Signs: Last Vital Signs Temp 98.8 F 11/23/20 10:23 Pulse 57 11/23/20 10:23 Resp 14 11/23/20 10:23 BP 147/70 H 11/23/20 10:23 Pulse Ox 98 11/23/20 10:23 Body Mass Index 24.0 Appearance: Alert. Oriented X3. No acute distress. Eyes: Pupils equal, round and reactive to light. ENT: Pharynx normal. Atraumatic no tongue biting Neck: Normal inspection. Neck supple. no pain to palpation CVS: Normal heart rate and rhythm. Pulses normal. Respiratory: No respiratory distress. Breath sounds normal. Abdomen: Soft and non-tender. : no incontinence Skin: Skin warm and dry. Normal skin color. Normal skin turgor. Extremities: No lower extremity edema. No calf ttp Neuro: Oriented X 3. No motor deficit. No sensory deficit. Course Course Course Narrative: previously low Na steady gait, feels fine no dizziness no pain will hydrate and start on ceftin MDM - Seizure MDM Narrative Medical decision making narrative: 55 yo female with hx of HTN, anxiety depression, NO prior seizures on record and day program reports they have called PCP who also denies seizure, she comes in with c/o being dizzy after smoking a cigarette. They found her face down possible LOC x 5 seconds no signs of trauma no jerking movements - the patient has no complaints. She reports dizziness to staff every time she smokes there (doesn't usually smoke at home) - EKG, CT head for trauma, troponin x 2. Denies any symptoms. Day staff reports this could also be behavioral in nature and she may have laid herself down on the ground. Lab Data Result diagrams: 11/23/20 10:11/23/20 10: Labs: Lab Results 11/23/20 11/23/20 11/23/20 Range/Units 10: 10: 10: WBC 5.4 (4.8-10.8) X10*3/uL RBC 3.69 L (4.20-5.50) X10*6/uL Hgb 12.9 (12.0-16.0) g/dl Hct 35.9 L (37-47) % MCV 97.3 (80-98) fL MCH 35.0 H (27.0-33.0) pg MCHC 35.9 H (31.0-35.0) g/dl RDW 12.1 (11.0-16.0) % Plt Count 147 L (160-400) X10*3/uL MPV 9.0 L (9.4-12.3) fL Immature Gran % (Auto) 0.2 (0.0-0.4) % Neut % (Auto) 59.0 (45-73) % Lymph % (Auto) 27.9 (20-40) % [place] % (Auto) 11.4 H (2-11) % Eos % (Auto) 1.1 (0-4) % Baso % (Auto) 0.4 (0-2) % Lymph # (Auto) 1.5 (1.2-4.9) X10*3/uL [place] # (Auto) 0.6 (0.1-1.2) X10*3/uL Eos # (Auto) 0.1 (0.0-0.4) X10*3/uL Baso # (Auto) 0.0 (0.0-0.2) X10*3/uL Abs Immat Gran (auto) 0.01 (0.00-0.03) X10*3/uL Absolute Neuts (auto) 3.2 (2.0-8.3) X10*3/uL Absolute Nucleated RBC 0.000 (0.0-0.012) X10*3/uL Nucleated RBC % (auto) 0.0 (0.0-0.2) /100WBC Sodium 131 L (135-145) mmol/L Potassium 3.8 (3.3-5.1) mmol/L Chloride 98 (96-108) mmol/L Carbon Dioxide 25 (22-29) mmol/L Anion Gap 12 (12-20) BUN 8 L (9-16) mg/dL Creatinine 0.82 (0.5-1.4) mg/dL Estim Creat Clear Calc 74.2 Estimated GFR > 60 Random Glucose 84 (60-115) mg/dL Calcium 9.0 (8.4-10.2) mg/dL Magnesium 2.0 (1.6-2.6) mg/dL Total Bilirubin 0.5 (0.0-1.0) mg/dL Direct Bilirubin 0.2 (0.0-0.5) mg/dL AST 21 (5-31) U/L ALT 12 (0-31) U/L Alkaline Phosphatase 84 (39-117) U/L Troponin I High Sens (<3.5-17.0) ng/L Total Protein 7.3 (6.5-8.0) g/dL Albumin 4.5 (3.5-5.0) g/dL Urine Color Urine Appearance Urine pH (5.0-8.0) Ur Specific [place] (1.005-1.025) Urine Protein (NEG-TRACE) MG/DL Urine Glucose (UA) (NEG) MG/DL Urine Ketones (NEG) MG/DL Urine Blood (NEG) Urine Nitrite (NEG) Ur Leukocyte Esterase (NEG) Urine RBC (0) /HPF Urine WBC (0-4) /HPF Ur Squamous Epith Cells /LPF Urine Bacteria /LPF COVID-19 ([facility]) Negative (Negative) COVID-19 Clin Com See Note 11/23/20 11/23/20 11/23/20 Range/Units 10:29 10:29 12:37 WBC (4.8-10.8) X10*3/uL RBC (4.20-5.50) X10*6/uL Hgb (12.0-16.0) g/dl Hct (37-47) % MCV (80-98) fL MCH (27.0-33.0) pg MCHC (31.0-35.0) g/dl RDW (11.0-16.0) % Plt Count (160-400) X10*3/uL MPV (9.4-12.3) fL Immature Gran % (Auto) (0.0-0.4) % Neut % (Auto) (45-73) % Lymph % (Auto) (20-40) % [place] % (Auto) (2-11) % Eos % (Auto) (0-4) % Baso % (Auto) (0-2) % Lymph # (Auto) (1.2-4.9) X10*3/uL [place] # (Auto) (0.1-1.2) X10*3/uL Eos # (Auto) (0.0-0.4) X10*3/uL Baso # (Auto) (0.0-0.2) X10*3/uL Abs Immat Gran (auto) (0.00-0.03) X10*3/uL Absolute Neuts (auto) (2.0-8.3) X10*3/uL Absolute Nucleated RBC (0.0-0.012) X10*3/uL Nucleated RBC % (auto) (0.0-0.2) /100WBC Sodium (135-145) mmol/L Potassium (3.3-5.1) mmol/L Chloride (96-108) mmol/L Carbon Dioxide (22-29) mmol/L Anion Gap (12-20) BUN (9-16) mg/dL Creatinine (0.5-1.4) mg/dL Estim Creat Clear Calc Estimated GFR Random Glucose (60-115) mg/dL Calcium (8.4-10.2) mg/dL Magnesium (1.6-2.6) mg/dL Total Bilirubin (0.0-1.0) mg/dL Direct Bilirubin (0.0-0.5) mg/dL AST (5-31) U/L ALT (0-31) U/L Alkaline Phosphatase (39-117) U/L Troponin I High Sens < 3.5 < 3.5 (<3.5-17.0) ng/L Total Protein (6.5-8.0) g/dL Albumin (3.5-5.0) g/dL Urine Color STRAW Urine Appearance HAZY Urine pH 6.5 (5.0-8.0) Ur Specific [place] 1.010 (1.005-1.025) Urine Protein NEG (NEG-TRACE) MG/DL Urine Glucose (UA) NEG (NEG) MG/DL Urine Ketones NEG (NEG) MG/DL Urine Blood 1+ H (NEG) Urine Nitrite NEG (NEG) Ur Leukocyte Esterase 3+ H (NEG) Urine RBC 1-4 (0) /HPF Urine WBC 30-49 H (0-4) /HPF Ur Squamous Epith Cells 4+ /LPF Urine Bacteria 3+ /LPF COVID-19 ([facility]) (Negative) COVID-19 Clin Com ECG Data Attestation: I personally reviewed and interpreted this ECG as follows: ECG interpretation date: 11/23/20 ECG interpretation time: 09:52 Interpretation: Rate: 64 Rhythm: NSR [place]: normal Normal P waves. Normal [place]. Normal QRS complex. ST T wave : nonspecific no YUMIKO qTC: normal prior studies: no acute ischemia The study has been interpreted contemporaneously by me. . Discharge Plan Discharge Clinical Impression: Acute dehydration UTI (urinary tract infection) Qualifiers: Urinary tract infection type: acute cystitis Hematuria presence: without hematuria Qualified Code(s): N30.00 - Acute cystitis without hematuria Patient Disposition: Home, Self-Care Instructions: Dehydration (ED), Urinary Tract Infection in Women (ED) Additional Instructions: return to ED for any worsening symptoms or concerns if patient becomes dizzy with smoking you may not want to allow smoking Prescriptions: New cefuroxime axetil 250 mg tablet 250 mg PO BID 7 Days Qty: 14 RF: 0 No Action diltiazem HCl [Cartia XT] 240 mg capsule,extended release 24hr 240 mg PO DAILY RF: 0 clonazepam 1 mg tablet 1 mg PO DAILY PRN (Reason: Insomnia) RF: 0 clonazepam 1 mg tablet 1 mg PO BID RF: 0 simvastatin 40 mg tablet 40 mg PO BEDTIME RF: 0 citalopram 20 mg tablet 30 mg PO DAILY RF: 0 Flovent HFA 44 mcg/actuation HFA aerosol inhaler 1 puff PO BID RF: 0 benztropine 1 mg tablet 1 mg PO BID RF: 0 perphenazine 4 mg tablet 4 mg PO BID RF: 0 omeprazole 20 mg capsule,delayed release(DR/EC) 20 mg PO DAILY RF: 0 oxcarbazepine 600 mg tablet 600 mg PO TID RF: 0 hydroxyzine HCl 10 mg tablet 10 - 20 mg PO BID PRN (Reason: Anxiety) RF: 0 diltiazem HCl 60 mg tablet 60 mg PO BEDTIME RF: 0 Referrals: Adam Warren MD [Primary Care Provider] - 3 days (if not better)
--- NOTE | 2020-11-23 09:33 | ECG_ITS ---
Test Reason : FALL Blood Pressure : / mmHG Vent. Rate : 064 BPM Atrial Rate : 064 BPM P-R Int : 200 ms QRS Dur : 088 ms QT Int : 424 ms P-R-T Axes : 057 039 053 degrees QTc Int : 437 ms Normal sinus rhythm Nonspecific T wave abnormality Abnormal ECG When compared with ECG of 22-SEP-2019 13:10, Nonspecific T wave abnormality is now Present Referred By: Bette Taylor Electronically Signed By:MELLISSA GILMORE
[2020-11-23 10:23] VITALS: BP 147/70; PULSE 57; RESP 14; TEMP 37.1; O2SAT 98
[2020-11-23 10:37] LABS: MANUAL DIFF FLAG NO
[2020-11-23 10:39] LABS: Basophils Percent Auto 0.4 % (0-2); Eosinophils Absolute Auto 0.1 X10*3/uL (0.0-0.4); Eosinophils Percent Auto 1.1 % (0-4); Hematocrit 35.9 % (37-47); Hemoglobin 12.9 g/dl (12.0-16.0); Imm Gran Abs Auto 0.01 X10*3/uL (0.00-0.03); Imm Gran Pct Auto 0.2 % (0.0-0.4); Lymphocytes Absolute Auto 1.5 X10*3/uL (1.2-4.9); Lymphocytes Percent Auto 27.9 % (20-40); Mean Corpuscular HGB Conc 35.9 g/dl (31.0-35.0); Mean Corpuscular Volume 97.3 fL (80-98); Monocytes Absolute Auto 0.6 X10*3/uL (0.1-1.2); Monocytes Percent Auto 11.4 % (2-11); Neutrophils Absolute Auto 3.2 X10*3/uL (2.0-8.3); Platelet Count 147 X10*3/uL (160-400); Red Blood Count 3.69 X10*6/uL (4.20-5.50); Red Cell Distribution Width 12.1 % (11.0-16.0); White Blood Count 5.4 X10*3/uL (4.8-10.8)
[2020-11-23 10:40] LABS: Appearance Urine HAZY; Color Urine STRAW; Glucose Urine UA NEG (NEG); Leukocyte Esterase Urine 3+ (NEG); Nitrite Urine NEG (NEG); PH 6.5 (5.0-8.0); UACC Culture Trigger YES; Urine Blood 1+ (NEG); Urine Ketones NEG (NEG); Urine Protein NEG (NEG-TRACE)
[2020-11-23 10:53] LABS: Bacteria Urine 3+ /LPF; Squamous Epithelial Cell Urine 4+ /LPF; WBC Urine 30-49 /HPF (0-4)
--- NOTE | 2020-11-23 10:53 | PC.NURSE ---
Pt alert, orientation at baseline. attends a day program, per day program staff pt was found laying face down after coming inside from smoking. Staff unsure if pt fell no trauma reported by staff and no seizure activity seen. Staff reports pt loss consciousness possibly for 5 seconds and was at baseline when she woke Pt states she feels fine now, she denies headache/dizziness. no other symptoms reported.
[2020-11-23 10:54] LABS: COVID-19 Test Negative (Negative)
[2020-11-23 11:00] LABS: Alanine Aminotransferase 12 U/L (0-31); Albumin Level 4.5 g/dL (3.5-5.0); Alkaline Phosphatase 84 U/L (39-117); Anion Gap 12 (12-20); Aspartate Amino Transferase 21 U/L (5-31); Bilirubin Direct 0.2 mg/dL (0.0-0.5); Bilirubin Total 0.5 mg/dL (0.0-1.0); Blood Urea Nitrogen 8 mg/dL (9-16); Carbon Dioxide 25 mmol/L (22-29); Chloride 98 mmol/L (96-108); Creatinine Clr Calc Pharmacy 74.2; Estimated Glomerular Filt Rate > 60; Glucose Random 84 mg/dL (60-115); Potassium 3.8 mmol/L (3.3-5.1); Sodium 131 mmol/L (135-145); Total Protein 7.3 g/dL (6.5-8.0)
[2020-11-23 11:01] LABS: Troponin-I High Sensitivity < 3.5 ng/L (<3.5-17.0)
[2020-11-23 13:05] LABS: Troponin-I High Sensitivity < 3.5 ng/L (<3.5-17.0)
[2020-11-23] MEDS: 0.9 % Sodium Chloride 1,000 ML 999 ML IV (14:08)
== END 2020-11-23 16:59 | disposition home or self-care (01) ==
PROVIDERS: Emergency Provider Emergency Medicine; PCP Internal Medicine Medical Oncology
DX: E86.0 Dehydration (principal); N30.00 Acute cystitis without hematuria; R42 Dizziness and giddiness; I10 Essential (primary) hypertension; Z20.822 Contact with and (suspected) exposure to COVID-19; Z79.899 Other long term (current) drug therapy; F17.200 Nicotine dependence, unspecified, uncomplicated; Z71.6 Tobacco abuse counseling
CPT/HCPCS: 36415; 70450; 80048; 80076; 81001; 83735; 84484; 85025; 87086; 87635; 93005; 96360; 99284

== ENCOUNTER 2021-11-12 13:49 | Outpatient (REF) | payer MEDICAID, SELFPAY | END 2021-11-12 13:50 | disposition home or self-care (01) | LOC: HO.LNP 13:49 | PROVIDERS: PCP Internal Medicine Medical Oncology; Visit Provider Obstetrics & Gynecology | DX: N39.0 Urinary tract infection, site not specified (principal) | CPT/HCPCS: 87086; 99202 ==

== ENCOUNTER 2022-02-08 16:06 | Emergency (ER) | payer MEDICAID, SELFPAY ==
--- NOTE | ~2022-02-08 | CT_ITS ---
EXAMINATION: CT ABDOMEN AND PELVIS WITH CONTRAST CLINICAL INFORMATION: acute abd, lower abd pain COMPARISON: 03/07/2008 TECHNIQUE: Multidetector volumetric imaging was performed from the superior aspect of the liver through the pubic symphysis following administration of 85 mL Omnipaque 300 intravenous contrast. Sagittal and coronal reformatted images were obtained on the technologist workstation.. This CT examination was performed using dose optimization techniques as appropriate, variously including the following: *Automated exposure control *Adjustment of mA and/or kV according to patient size (this includes techniques or standardized protocols for targeted exams where dose is matched to indication/reason for exam; i.e. extremities or head) *Use of iterative reconstruction technique DLP: 407 mGy-cm FINDINGS: LUNG BASES: Dependent linear airspace changes more likely due to atelectasis. Small hiatal hernia. LIVER, GALLBLADDER, AND BILIARY TREE: The liver is normal in size, shape, and attenuation. No focal hepatic lesion or biliary ductal dilatation is present. The gallbladder is unremarkable with no evidence of radiopaque gallstones, gallbladder wall thickening, or obvious pericholecystic inflammatory changes. PANCREAS: Unremarkable. SPLEEN: Unremarkable. ADRENAL GLANDS: Unremarkable. KIDNEYS AND URETERS: The kidneys are normal in size, shape, and attenuation. No hydronephrosis, hydroureter, or calculi seen. No perinephric stranding. BLADDER: Unremarkable. GASTROINTESTINAL TRACT: Colon is redundant. No focal colonic wall thickening or pericolonic inflammatory changes normal-appearing appendix in the right lower quadrant. Visualized small bowel unremarkable. There is a small fluid containing structure in the right paracolic gutter which retrospect has been present and unchanged from the 03/26/2007 study and is of no acute significance. ABDOMINAL WALL: No significant hernia is appreciated. LYMPHOVASCULAR STRUCTURES: Vascular calcification within the aorta iliac system. Extensive phleboliths in the pelvis PELVIC VISCERA: Unremarkable. OSSEOUS STRUCTURES: Unremarkable. CT/CT abdomen pelvis w IV con IMPRESSION: I do not appreciate any acute intra-abdominal process.
[2022-02-08 16:20] VITALS: BP 141/68; BP 150/70; PULSE 73; PULSE 93; RESP 22; TEMP 36.9; O2SAT 93; O2SAT 99; BMI 30.2
--- NOTE | 2022-02-08 16:38 | ED_ITS ---
HPI - Abdominal Pain General Chief Complaint: Abdominal Pain Stated Complaint: LOW ABD PAIN X'S 3 DAYS PER EMS Time Seen by Provider: 02/08/22 16:21 Source: patient Limitations: language barrier (Family translating) History of Present Illness HPI narrative: This is a 56 year year old female who complains of lower abdominal pain for about a week which today became unbearable. The patient states the pain is severe, worst in her mid lower abdomen. Pain is worse with movement or walking. Patient denies fever. She denies nausea or vomiting. She has been a little constipated and took a laxative with relief. She has had some dysuria and urinary frequency, as well as urgency. She has been wearing any diaper. She does have history of UTI Related Data Home Medications Medication Instructions Recorded Confirmed benztropine 1 mg tablet 1 mg PO BID 05/21/20 05/21/20 citalopram 20 mg tablet 30 mg PO DAILY 05/21/20 05/21/20 clonazepam 1 mg tablet 1 mg PO BID 05/21/20 05/21/20 diltiazem HCl 240 mg 240 mg PO DAILY 05/21/20 05/21/20 capsule,extended release 24 hr (Cartia XT) diltiazem HCl 60 mg tablet 60 mg PO BEDTIME 05/21/20 05/21/20 fluticasone propionate 44 1 puff PO BID 05/21/20 05/21/20 mcg/actuation HFA aerosol inhaler (Flovent HFA) hydroxyzine HCl 10 mg tablet 10 - 20 mg PO BID PRN Anxiety 05/21/20 05/21/20 omeprazole 20 mg capsule,delayed 20 mg PO DAILY 05/21/20 05/21/20 release oxcarbazepine 600 mg tablet 600 mg PO TID 05/21/20 05/21/20 perphenazine 4 mg tablet 4 mg PO BID 05/21/20 05/21/20 simvastatin 40 mg tablet 40 mg PO BEDTIME 05/21/20 05/21/20 Previous Rx's Medication Instructions Recorded nitrofurantoin 100 mg PO BID 5 days #10 caps 11/12/21 monohydrate/macrocrystals 100 mg capsule (Macrobid) cefdinir 300 mg capsule 300 mg PO BID #14 caps 02/08/22 phenazopyridine 200 mg tablet 200 mg PO TID 6 doses #6 tabs 02/08/22 (Pyridium) tramadol 50 mg tablet 50 - 100 mg PO Q4H PRN pain #20 02/08/22 tabs cefdinir 300 mg capsule 300 mg PO BID #14 caps 02/09/22 phenazopyridine 200 mg tablet 200 mg PO TID PRN pain with 02/09/22 (Pyridium) urination 6 doses #6 tabs tramadol 50 mg tablet 50 mg PO TID PRN pain #7 tabs 02/09/22 Allergies Allergy/AdvReac Type Severity Reaction Status Date / Time No Known Allergies Allergy Unverified 11/12/21 13:59 [No Known Allergies*] Review of Systems Review of Systems Yes all other systems are reviewed and are negative Constitutional: Reports as per HPI and Denies fever(s) Eyes: Reports as per HPI and Reports no additional eye complaints Reports system reviewed and no additional complaints, except as documented, Reports as per HPI, Denies nasal congestion, Denies nasal discharge and Denies sore throat Cardiovascular: Reports as per HPI, Denies chest pain and Denies dyspnea Respiratory: Reports as per HPI, Denies cough and Denies dyspnea Gastrointestinal: Reports as per HPI, Reports abdominal pain, Reports constipation, Denies diarrhea and Denies vomiting Genitourinary: Reports as per HPI, Denies hematuria, Denies urinary frequency, Reports dysuria, Denies flank pain and Reports urinary urgency Musculoskeletal: Reports no additional musculoskeletal complaints and Denies numbness Skin/Breast: Reports as per HPI and Denies rash Reports as per HPI, Denies focal weakness and Denies numbness Psychiatric: Reports no additional psychiatric complaints and Reports as per HPI Endocrine: Reports no additional endocrine complaints and Reports as per HPI Hematologic/Lymphatic: Reports no additional hematologic/lymphatic complaints, Reports as per HPI and Reports other (No peripheral edema) [facility] Past Medical History Medical History Anxiety Depression GERD (gastroesophageal reflux disease) HTN (hypertension) Surgical History Hx of tubal ligation Family History Family History Mother Diabetes HTN (hypertension) Father HTN (hypertension) Social History Social History Household Members: Spouse Housing: Apartment Alcohol intake: never Patient Tobacco Use Status: Current someday Tobacco user Cigarettes Per Day: 1 Years Smoked: 22 Advance Directives: No Advance Directives Information Provided: No Sexual orientation: Straight/Heterosexual Gender identity: Female Physical Exam ED Vital Signs: Vital Signs - 24 hr 02/08/22 17:14 02/08/22 18:53 Pulse Rate 71 64 Respiratory Rate 20 Blood Pressure 147/67 H 155/64 H Pulse Oximetry 97 97 Oxygen Delivery Method Room Air Room Air BMI result Body Mass Index 30.2 Const Other: Patient uncomfortable appearing, tearful General: no acute distress Orientation/consciousness: patient oriented x3 HENMT Head: Yes normal to inspection General nose exam: Normal external nose present Mouth: moist mucous membranes Throat: Yes posterior oropharynx normal, Yes tonsils normal and Yes uvula midline Eyes Eyelids: Yes eyelids normal Conjunctivae: conjunctivae normal Pupils: Equal, round and reactive pupils present Neck Neck: Yes supple Resp Effort & Inspection: normal respiratory effort Auscultation: clear to auscultation bilaterally Cardio Rate: regular rate Rhythm: regular rhythm Heart sounds: S1 normal heart sound present, S2 normal heart sound present, no gallops, no murmurs and no rubs GI Inspection: No distended Palpation (GI): Soft to palpation and Tenderness to palpation present (GI) (Diffuse tenderness, severe) Auscultation: normal bowel sounds Skin General skin exam: other (Warm and dry) Neuro General: patient oriented x3 and CN's II-XI intact bilaterally Cranial nerves: Yes Equal, round and reactive pupils present Extrem General: Yes no pedal edema Psych Affect: normal affect Attitude: cooperative Course Course Course Narrative: Patient given morphine 4 mg IV, Zofran 4 mg IV, normal filling 1 L IV. The patient later had recurrent pain and was given additional dose of morphine. Labs and CT of the abdomen and pelvis were unremarkable. Urinalysis did show borderline evidence for UTI. Urine culture was sent. The patient will be started on antibiotics for possible UTI. Patient's pains seems out of proportion to UTI however dental workup reveals no other concerning etiology. Patient may have element of anxiety Medical Decision Making Differential Diagnosis Differential Diagnoses: The differential diagnosis associated with the presentation includes Diverticulitis, appendicitis, perforated viscus, ovarian mass, ovarian cyst with hemorrhage, pyelonephritis, renal colic Lab Data [facility] Lab Attestation statement: I reviewed the patient's lab results. Result Diagrams: 02/08/22 17:02 02/08/22 17:02 Labs: Lab Results 02/08/22 02/08/22 02/08/22 Range/Units 17:02 17:02 19:16 WBC 5.8 (4.8-10.8) X10*3/uL RBC 3.37 L (4.20-5.50) X10*6/uL Hgb 11.6 L (12.0-16.0) g/dl Hct 32.8 L (37.0-47.0) % MCV 97.3 (80.0-98.0) fL MCH 34.4 H (27.0-33.0) pg MCHC 35.4 H (31.0-35.0) g/dl RDW 12.7 (11.0-16.0) % Plt Count 163 (160-400) X10*3/uL MPV 9.0 L (9.4-12.3) fL Immature Gran % (Auto) 0.2 (0.0-0.4) % Neut % (Auto) 42.1 L (45-73) % Lymph % (Auto) 47.1 H (20-40) % [place] % (Auto) 8.4 (2-11) % Eos % (Auto) 1.9 (0-4) % Baso % (Auto) 0.3 (0-2) % Lymph # (Auto) 2.7 (1.2-4.9) X10*3/uL [place] # (Auto) 0.5 (0.1-1.2) X10*3/uL Eos # (Auto) 0.1 (0.0-0.4) X10*3/uL Baso # (Auto) 0.0 (0.0-0.2) X10*3/uL Abs Immat Gran (auto) 0.01 (0.00-0.03) X10*3/uL Absolute Neuts (auto) 2.4 (2.0-8.3) x10*3/uL Absolute Nucleated RBC 0.000 (0.0-0.012) X10*3/uL Nucleated RBC % (auto) 0.0 (0.0-0.2) /100WBC Sodium 131 L (135-145) mmol/L Potassium 3.8 (3.3-5.1) mmol/L Chloride 98 (96-108) mmol/L Carbon Dioxide 24 (22-29) mmol/L Anion Gap 13 (12-20) BUN 8 L (9-16) mg/dL Creatinine 0.80 (0.5-1.4) mg/dL Estim Creat Clear Calc 73.2 Estimated GFR > 60 Random Glucose 98 (60-115) mg/dL Calcium 9.1 (8.4-10.2) mg/dL Total Bilirubin 0.3 (0.0-1.0) mg/dL AST 23 (5-31) U/L ALT 19 (0-31) U/L Alkaline Phosphatase 73 (39-117) U/L Total Protein 6.9 (6.5-8.0) g/dL Albumin 4.3 (3.5-5.0) g/dL Urine Color Yellow Urine Appearance Clear Urine pH 8.0 (5.0-9.0) Ur Specific [place] >= 1.030 H (1.005-1.025) Urine Protein Negative (Neg-Trace) mg/dL Urine Glucose (UA) Negative (Negative) mg/dL Urine Ketones Negative (Negative) mg/dL Urine Blood Small (1+) H (Negative) Urine Nitrite Negative (Negative) Ur Leukocyte Esterase Moderate (2+) H (Negative) Urine RBC 11-20 H (0-2) /HPF Urine WBC 6-10 H (0-5) /HPF Ur Squamous Epith Cells 3-5 (0-2) /HPF Urine Bacteria None Seen (None Seen) Hyaline Casts 0-2 (0-2) /LPF Radiology Impression Discussion of test interpretation with radiology: I have reviewed the radiologist's reading. Radiologist Impression: CT abdomen pelvis with IV contrast: IMPRESSION: I do not appreciate any acute intra-abdominal process. Prescription Management I considered prescription management with: Pain Medication and Antibiotic Medications Administered Discontinued Medications Generic Name Dose Route Start Last Admin Trade Name Freq PRN Reason Stop Dose Admin Sodium Chloride 1,000 mls @ 999 mls/hr 02/08/22 16:45 02/08/22 18:10 Ns IV 02/08/22 17:45 Infused .Q1H1M DARLIN Infusion Ceftriaxone Sodium 1 gm/ 50 mls @ 100 mls/hr 02/08/22 21:43 02/08/22 23:18 Sodium Chloride IV 02/08/22 22:12 Infused ONCE ONE Infusion Iohexol 100 ml 02/08/22 18:07 02/08/22 18:08 Iohexol 350 Mg/Ml 100 Ml Infus..Btl IV 02/08/22 18:08 85 ml ONCE ONE Administration Morphine Sulfate 4 mg 02/08/22 16:35 02/08/22 17:07 Morphine Sulfate 4 Mg/Ml Cartridge IVPUSH 02/08/22 16:36 4 mg ONCE ONE Administration Protocol Morphine Sulfate 4 mg 02/08/22 22:29 02/08/22 22:45 Morphine Sulfate 4 Mg/Ml Cartridge IVPUSH 02/08/22 22:30 4 mg ONCE ONE Administration Protocol Ondansetron HCl 4 mg 02/08/22 16:35 02/08/22 17:07 Ondansetron Hcl 4 Mg/2 Ml Vial IVPUSH 02/08/22 16:36 4 mg ONCE ONE Administration Discharge Plan Discharge Clinical Impression: UTI (urinary tract infection), Lower abdominal pain Patient Disposition: Home, Self-Care Instructions: Urinary Tract Infection in Women (ED) Additional Instructions: Drink plenty of fluids. Take the antibiotic as prescribed. Take the pain medicine as prescribed. Return for any worsened symptoms such as fever, vomiting Prescriptions: New cefdinir 300 mg capsule 300 mg PO BID Qty: 14 0RF tramadol 50 mg tablet 50 - 100 mg PO Q4H PRN (Reason: pain) Qty: 20 0RF phenazopyridine [Pyridium] 200 mg tablet 200 mg PO TID 0 Days Qty: 6 0RF cefdinir 300 mg capsule 300 mg PO BID Qty: 14 0RF phenazopyridine [Pyridium] 200 mg tablet 200 mg PO TID PRN (Reason: pain with urination) Qty: 6 0RF tramadol 50 mg tablet 50 mg PO TID PRN (Reason: pain) Qty: 7 0RF No Action diltiazem HCl [Cartia XT] 240 mg capsule,extended release 24hr 240 mg PO DAILY clonazepam 1 mg tablet 1 mg PO BID simvastatin 40 mg tablet 40 mg PO BEDTIME citalopram 20 mg tablet 30 mg PO DAILY Flovent HFA 44 mcg/actuation HFA aerosol inhaler 1 puff PO BID benztropine 1 mg tablet 1 mg PO BID perphenazine 4 mg tablet 4 mg PO BID omeprazole 20 mg capsule,delayed release(DR/EC) 20 mg PO DAILY oxcarbazepine 600 mg tablet 600 mg PO TID hydroxyzine HCl 10 mg tablet 10 - 20 mg PO BID PRN (Reason: Anxiety) diltiazem HCl 60 mg tablet 60 mg PO BEDTIME nitrofurantoin monohyd/m-cryst [Macrobid] 100 mg capsule 100 mg PO BID 5 Days Qty: 10 0RF Interventions: ED Discharge Assessment Last Done: 02/09/22 07:40 Discharge Date/Time: 02/08/22 23:15
[2022-02-08] MEDS: Morphine Sulfate 4 MG/ML CARTRIDGE IVPUSH ×2 (17:07→22:45)
[2022-02-08] MEDS: ondansetron HCL 4 MG/2 ML VIAL IVPUSH (17:07)
[2022-02-08] MEDS: 0.9 % Sodium Chloride 1,000 ML 999 ML IV (17:07)
[2022-02-08 17:08] LABS: MANUAL DIFF FLAG NO
[2022-02-08 17:10] LABS: Basophils Percent Auto 0.3 % (0-2); Eosinophils Absolute Auto 0.1 X10*3/uL (0.0-0.4); Eosinophils Percent Auto 1.9 % (0-4); Hematocrit 32.8 % (37.0-47.0); Hemoglobin 11.6 g/dl (12.0-16.0); Imm Gran Abs Auto 0.01 X10*3/uL (0.00-0.03); Imm Gran Pct Auto 0.2 % (0.0-0.4); Lymphocytes Absolute Auto 2.7 X10*3/uL (1.2-4.9); Lymphocytes Percent Auto 47.1 % (20-40); Mean Corpuscular HGB Conc 35.4 g/dl (31.0-35.0); Mean Corpuscular Hemoglobin 34.4 pg (27.0-33.0); Mean Corpuscular Volume 97.3 fL (80.0-98.0); Monocytes Absolute Auto 0.5 X10*3/uL (0.1-1.2); Monocytes Percent Auto 8.4 % (2-11); Neutrophils Absolute Auto 2.4 x10*3/uL (2.0-8.3); Neutrophils Percent Auto 42.1 % (45-73); Platelet Count 163 X10*3/uL (160-400); Red Blood Count 3.37 X10*6/uL (4.20-5.50); Red Cell Distribution Width 12.7 % (11.0-16.0); White Blood Count 5.8 X10*3/uL (4.8-10.8)
[2022-02-08 17:14] VITALS: BP 147/67; PULSE 71; RESP 20; O2SAT 97
[2022-02-08 17:31] LABS: Alanine Aminotransferase 19 U/L (0-31); Albumin Level 4.3 g/dL (3.5-5.0); Alkaline Phosphatase 73 U/L (39-117); Anion Gap 13 (12-20); Aspartate Amino Transferase 23 U/L (5-31); Blood Urea Nitrogen 8 mg/dL (9-16); Calcium 9.1 mg/dL (8.4-10.2); Carbon Dioxide 24 mmol/L (22-29); Chloride 98 mmol/L (96-108); Creatinine Clr Calc Pharmacy 73.2; Estimated Glomerular Filt Rate > 60; Glucose Random 98 mg/dL (60-115); Potassium 3.8 mmol/L (3.3-5.1); Sodium 131 mmol/L (135-145); Total Protein 6.9 g/dL (6.5-8.0)
[2022-02-08 17:55] LABS: Bilirubin Total 0.3 mg/dL (0.0-1.0)
[2022-02-08] MEDS: iohexoL 350 MG/ML 100 ML INFUS..BTL IV (18:08)
[2022-02-08 18:53] VITALS: BP 155/64; PULSE 64; O2SAT 97
--- NOTE | 2022-02-08 19:12 | PC.NURSE ---
awaiting urine sample, pt given water
[2022-02-08 19:29] LABS: Appearance Urine Clear; Color Urine Yellow; Glucose Urine UA Negative (Negative); Leukocyte Esterase Urine Moderate (2+) (Negative); Nitrite Urine Negative (Negative); Specific Gravity - Urine >= 1.030 (1.005-1.025); UMIC TRIGGER UACC YES; Urine Blood Small (1+) (Negative); Urine Ketones Negative (Negative); Urine Protein Negative (Neg-Trace)
--- NOTE | 2022-02-08 20:16 | PC.NURSE ---
Pt continues to rest in stretcher, awaiting urinalysis.
[2022-02-08 20:47] LABS: Bacteria Urine None Seen (None Seen); Hyaline Casts Urine 0-2 /LPF (0-2); UACC Culture Trigger YES
--- NOTE | 2022-02-08 20:56 | PC.NURSE ---
called lab, still awaiting results of urine. Pt family aware
[2022-02-08] MEDS: cefTRIAXone sodium 1 GM in 0.9 % Sodium Chloride 50 ML IV (22:45)
== END 2022-02-08 23:15 | disposition home or self-care (01) ==
PROVIDERS: Emergency Provider Emergency Medicine; PCP Internal Medicine Medical Oncology
DX: N39.0 Urinary tract infection, site not specified (principal); R10.30 Lower abdominal pain, unspecified; I10 Essential (primary) hypertension; F17.210 Nicotine dependence, cigarettes, uncomplicated; Z79.02 Long term (current) use of antithrombotics/antiplatelets; Z79.899 Other long term (current) drug therapy
CPT/HCPCS: 36415; 74177; 80053; 81001; 85025; 87086; 96361; 96365; 96375; 99284; J0696; J2270; J2405; Q9967

== ENCOUNTER 2022-03-14 14:42 | Outpatient (REF) | payer MEDICAID, SELFPAY ==
[2022-03-14 15:44] LABS: Appearance Urine Clear; Color Urine Yellow; Glucose Urine UA Negative (Negative); Leukocyte Esterase Urine Negative (Negative); Nitrite Urine Negative (Negative); PH 7.5 (5.0-9.0); UMIC TRIGGER UA YES; Urine Blood Trace (Negative); Urine Ketones Negative (Negative); Urine Protein Negative (Neg-Trace)
[2022-03-14 15:47] LABS: Bacteria Urine None Seen (None Seen); Hyaline Casts Urine 0-2 /LPF (0-2); Squamous Epithelial Cell Urine 0-2 /HPF (0-2); WBC Urine 0-5 /HPF (0-5)
== END 2022-03-14 14:43 | disposition home or self-care (01) ==
LOC: HO.LAB 14:42
PROVIDERS: PCP Internal Medicine Medical Oncology; Visit Provider Internal Medicine Medical Oncology
DX: N39.0 Urinary tract infection, site not specified (principal)
CPT/HCPCS: 81001; 87086

== ENCOUNTER 2022-04-24 12:23 | Outpatient (REF) | payer MEDICAID, SELFPAY ==
[2022-04-24 12:40] LABS: MANUAL DIFF FLAG NO
[2022-04-24 12:54] LABS: Basophils Percent Auto 0.3 % (0-2); Eosinophils Absolute Auto 0.1 X10*3/uL (0.0-0.4); Eosinophils Percent Auto 0.8 % (0-4); Hematocrit 37.4 % (37.0-47.0); Hemoglobin 13.6 g/dl (12.0-16.0); Imm Gran Abs Auto 0.01 X10*3/uL (0.00-0.03); Imm Gran Pct Auto 0.2 % (0.0-0.4); Lymphocytes Absolute Auto 1.5 X10*3/uL (1.2-4.9); Lymphocytes Percent Auto 24.8 % (20-40); Mean Corpuscular HGB Conc 36.4 g/dl (31.0-35.0); Mean Corpuscular Hemoglobin 34.1 pg (27.0-33.0); Mean Corpuscular Volume 93.7 fL (80.0-98.0); Mean Platelet Volume 8.9 fL (9.4-12.3); Monocytes Absolute Auto 0.7 X10*3/uL (0.1-1.2); Monocytes Percent Auto 11.1 % (2-11); Neutrophils Absolute Auto 3.7 x10*3/uL (2.0-8.3); Neutrophils Percent Auto 62.8 % (45-73); Platelet Count 159 X10*3/uL (160-400); Red Blood Count 3.99 X10*6/uL (4.20-5.50); Red Cell Distribution Width 11.1 % (11.0-16.0); White Blood Count 5.9 X10*3/uL (4.8-10.8)
[2022-04-24 13:29] LABS: Alanine Aminotransferase 15 U/L (0-31); Albumin Level 4.7 g/dL (3.5-5.0); Alkaline Phosphatase 95 U/L (39-117); Anion Gap 11 (12-20); Aspartate Amino Transferase 24 U/L (5-31); Bilirubin Total 0.4 mg/dL (0.0-1.0); Blood Urea Nitrogen 6 mg/dL (9-16); Calcium 9.1 mg/dL (8.4-10.2); Carbon Dioxide 25 mmol/L (22-29); Chloride 93 mmol/L (96-108); Cholesterol 153 mg/dL; Estimated Glomerular Filt Rate > 60; Glucose Random 91 mg/dL (60-115); HDL Cholesterol 63 mg/dL; LDL Cholesterol Calculated 67 mg/dl; Potassium 4.2 mmol/L (3.3-5.1); Sodium 125 mmol/L (135-145); Total Protein 7.5 g/dL (6.5-8.0); Triglycerides 115 mg/dL
[2022-04-24 13:48] LABS: Appearance Urine Clear; Color Urine Yellow; Glucose Urine UA Negative (Negative); Leukocyte Esterase Urine Negative (Negative); Nitrite Urine Negative (Negative); UMIC TRIGGER UA YES; Urine Blood Small (1+) (Negative); Urine Ketones Negative (Negative); Urine Protein Negative (Neg-Trace)
[2022-04-24 13:54] LABS: Bacteria Urine None Seen (None Seen); Hyaline Casts Urine 0-2 /LPF (0-2); Squamous Epithelial Cell Urine 0-2 /HPF (0-2); WBC Urine 0-5 /HPF (0-5)
== END 2022-04-24 12:24 | disposition home or self-care (01) ==
LOC: HO.LAB 12:23
PROVIDERS: PCP Internal Medicine Medical Oncology; Visit Provider Internal Medicine Medical Oncology
DX: Z00.00 Encounter for general adult medical examination without abnormal findings (principal); R32 Unspecified urinary incontinence; N39.0 Urinary tract infection, site not specified; D64.9 Anemia, unspecified; E78.5 Hyperlipidemia, unspecified
CPT/HCPCS: 36415; 80053; 80061; 81001; 85025; 87086

== ENCOUNTER 2022-06-16 14:32 | Outpatient (REF) | payer MEDICAID, SELFPAY ==
--- NOTE | ~2022-06-16 | US_ITS ---
EXAMINATION: US PELVIS COMPLETE CLINICAL INFORMATION: Pelvic pain COMPARISON: CT of abdomen pelvis 02/08/2022 TECHNIQUE: Transabdominal and transvaginal imaging was performed. FINDINGS: The uterus is of normal size and echogenicity measuring 7.9 x 3.3 x 5.6 cm. A regular homogeneous endometrium is identified measuring 0.6 cm. Small myometrial vascular calcification. No uterine myomas identified. Both ovaries are of normal size and echogenicity. The right measures 2.4 x 1 0.0, 0.9 cm for a volume of 2.4 mL. The left measures 2.3 x 0.9 x 0.8 cm for a volume of 0.9 mL. There is no pelvic free fluid. US/US pelvic and transvaginal IMPRESSION: No acute findings to explain symptoms of pelvic pain.
== END 2022-06-16 14:33 | disposition home or self-care (01) ==
LOC: HO.US 14:32
PROVIDERS: Visit Provider Internal Medicine Medical Oncology
DX: R10.2 Pelvic and perineal pain (principal); R39.89 Other symptoms and signs involving the genitourinary system
CPT/HCPCS: 76830; 76856

== ENCOUNTER 2022-07-07 15:19 | Outpatient (REF) | payer MEDICAID, SELFPAY | END 2022-07-07 15:20 | disposition home or self-care (01) | LOC: HO.LNP 15:19 | PROVIDERS: PCP Internal Medicine Medical Oncology; Visit Provider Obstetrics & Gynecology | DX: R10.2 Pelvic and perineal pain (principal); R31.29 Other microscopic hematuria | CPT/HCPCS: 81003; 99202 ==

== ENCOUNTER 2022-07-08 08:37 | Outpatient (REF) | payer MEDICAID, SELFPAY ==
[2022-07-08 12:26] LABS: CT PCR NOT DETECTED (Not Detect.); NG PCR NOT DETECTED (Not Detect.)
== END 2022-07-08 08:38 | disposition home or self-care (01) ==
LOC: HO.10HDLNP 08:37
PROVIDERS: Visit Provider Obstetrics & Gynecology
DX: R10.2 Pelvic and perineal pain (principal); R31.29 Other microscopic hematuria
CPT/HCPCS: 0353U; 87086

== ENCOUNTER 2022-10-05 20:16 | Inpatient (IN) | payer MEDICAID, SELFPAY ==
--- NOTE | ~2022-10-05 | US_ITS ---
EXAMINATION: US RETROPERITONEAL LIMITED (RENAL ONLY) CLINICAL INFORMATION: Rule out renal artery stenosis. Hypertension. COMPARISON: Previous CT of the abdomen and pelvis 10/05/2022 TECHNIQUE: Doppler color and grayscale evaluation of the kidneys, renal arteries and renal vein and including waveform spectral analysis FINDINGS: RIGHT KIDNEY: 10.5 x 4.3 x 5.6 cm (SAG x AP x TRV). The kidney is normal in size, contour, and echogenicity. Renal cortical thickness is normal. No calculi or focal parenchymal lesions. No hydronephrosis. LEFT KIDNEY: 9.7 x 4.8 x 4.4 cm (SAG x AP x TRV). The kidney is normal in size, contour, and echogenicity. Renal cortical thickness is normal. No calculi or focal parenchymal lesions. No hydronephrosis. Mid aortic peak systolic velocity measures 90 cm/s. The right renal artery is patent. Right renal artery peak systolic velocities are normal measuring 132 to 147 cm/s. Right renal artery to aorta ratio is normal measuring 1.6 cm. Resistive indices in the segmental renal arteries in the right kidney are minimally elevated measuring 0.8. The right renal vein is patent. The left renal artery is patent. Left renal artery peak systolic velocities are normal measuring 136 to 156 cm/s. Left renal artery to aorta ratio is normal measuring 1.7 cm/s. Resistive indices in the segmental renal arteries in the left kidney are normal measuring 0.7. Left renal vein is patent. US/US renal BI IMPRESSION: Slightly elevated resistive indices in the segmental renal arteries in the right kidney otherwise unremarkable renal ultrasound and Doppler exam..
--- NOTE | ~2022-10-05 | CT_ITS ---
EXAMINATION: CT CHEST, ABDOMEN AND PELVIS WITHOUT CONTRAST CLINICAL INFORMATION: Fall down stairs. Right rib tenderness. COMPARISON: Multiple priors with the last abdomen and pelvic CT scan of 02/08/2022 and chest x-ray of 04/07/2019. TECHNIQUE: Multidetector volumetric imaging was performed from the thoracic inlet through the pubic symphysis following the administration of: Oral contrast: No. Intravenous contrast: No. Sagittal and coronal reformatted images were obtained on the technologist workstation. Total exam dose-length product: 1579 mGy-cm FINDINGS: CHEST: Multiple respiratory motion artifacts limit evaluation. The aorta and central pulmonary arteries are normal in caliber. Coronary calcifications are noted. Cardiac size is normal. No evidence of pericardial effusion or mediastinal fluid collection/hematoma. Trachea and central bronchi are well patent. No evidence of axillary, mediastinal or hilar adenopathy. No focal nodule is noted in the visualized thyroid. Calcific atherosclerosis of the aorta. Evaluation of the lung parenchyma is limited due to multiple respiratory motion artifacts; however, no discrete nodule, mass or focal consolidation is noted. No evidence of pleural effusions or pneumothorax. The visualized chest wall soft tissues are grossly unremarkable. Note is made of a nondisplaced or fracture through the lateral end of the right clavicle. Acromioclavicular alignment is maintained. Within the limits of study, no definite rib fractures are identified. Visualized portions of the scapulae and proximal humeri bilaterally are intact. Sternum is intact. Visualized left clavicle appears intact. Mild thoracic kyphosis is noted. Minimal superior endplate depression at the T3 is of indeterminate age; however, is new compared to previous cervical spine CT scan of 04/07/2019. Otherwise, vertebral body heights and alignment are maintained. Intervertebral disc spaces are preserved. Multilevel mild degenerative changes are noted with anterior hypertrophic osteophytic endplate spurring. ABDOMEN AND PELVIS: Evaluation is limited by multiple respiratory motion artifacts. Noncontrast liver, spleen, adrenal glands, pancreas and biliary tree grossly appear unremarkable. Gallbladder is mildly contracted. No evidence of radiopaque gallstones or obvious pericholecystic inflammatory changes. There is somewhat hyperattenuation of the intraluminal contents in the gallbladder which may suggest presence of sludge in the gallbladder. The kidneys are normal in size, shape and attenuation. No hydroureteronephrosis. No radiopaque urinary tract calculi are noted. No perinephric stranding. Urinary bladder is significantly underdistended and therefore not optimally evaluated. The uterus is mildly deviated to the left. Unremarkable CT appearance of the uterus. No adnexal mass. Multiple phleboliths are noted in the pelvis bilaterally. The sigmoid colon is tortuous and extends into the left mid to upper hemiabdomen; a portion of the sigmoid colon demonstrates mild gaseous distention measuring 3.1 cm (series 11, image 33 of 86) with very narrow caliber and efferent loops; the finding is nonspecific and probably related to colonic spasm rather than developing sigmoid volvulus. There is no evidence of colonic wall thickening or pericolonic fat stranding. Presumed appendix is grossly unremarkable. A 0.9 cm oval soft tissue nodule posterior to the right-sided colon in the mid hemiabdomen (series 12, image 333) is a stable finding since previous CT scan of 03/26/2007. There is no evidence of free intraperitoneal air or fluid. Aortoiliac vessels are normal in caliber. No evidence of pathologically-enlarged lymph nodes. No significant abdominal wall hernia. No significant abdominal wall hematoma is noted. No acute or suspicious osseous abnormality in the abdomen and pelvis. The vertebral body heights and alignment in the lumbar spine are maintained. Intervertebral disc spaces are preserved. Mild multilevel degenerative changes are noted in the lumbar spine with marginal anterior endplate osteophytic spurring. CT/CT abdomen pelvis wo IV con IMPRESSION: 1. Nondisplaced fracture through the lateral end of the right clavicle. Within the limits of study, no definite evidence of right rib fracture. 2. Minimal superior endplate depression at T3 is of indeterminate age; however, is new compared to previous CT scan of 04/07/2019. 3. Otherwise, no acute traumatic injuries are identified in the chest, abdomen, and pelvis. 4. No fracture or malalignment in the thoracolumbar spine. 5. Redundant, tortuous and somewhat mobile sigmoid colon extending into the left upper abdomen, with appearance of the sigmoid colon in the upper abdomen as described above, which is nonspecific. The possibility of developing sigmoid volvulus here is thought to be very less likely ; however, recommend clinical correlation. Findings were discussed with DIONISIO Guillory at 10:41PM on 10/05/2022 at 10:35 PM.
--- NOTE | ~2022-10-05 | US_ITS ---
EXAMINATION: US RETROPERITONEAL LIMITED (RENAL ONLY) CLINICAL INFORMATION: Rule out renal artery stenosis. Hypertension. COMPARISON: Previous CT of the abdomen and pelvis 10/05/2022 TECHNIQUE: Doppler color and grayscale evaluation of the kidneys, renal arteries and renal vein and including waveform spectral analysis FINDINGS: RIGHT KIDNEY: 10.5 x 4.3 x 5.6 cm (SAG x AP x TRV). The kidney is normal in size, contour, and echogenicity. Renal cortical thickness is normal. No calculi or focal parenchymal lesions. No hydronephrosis. LEFT KIDNEY: 9.7 x 4.8 x 4.4 cm (SAG x AP x TRV). The kidney is normal in size, contour, and echogenicity. Renal cortical thickness is normal. No calculi or focal parenchymal lesions. No hydronephrosis. Mid aortic peak systolic velocity measures 90 cm/s. The right renal artery is patent. Right renal artery peak systolic velocities are normal measuring 132 to 147 cm/s. Right renal artery to aorta ratio is normal measuring 1.6 cm. Resistive indices in the segmental renal arteries in the right kidney are minimally elevated measuring 0.8. The right renal vein is patent. The left renal artery is patent. Left renal artery peak systolic velocities are normal measuring 136 to 156 cm/s. Left renal artery to aorta ratio is normal measuring 1.7 cm/s. Resistive indices in the segmental renal arteries in the left kidney are normal measuring 0.7. Left renal vein is patent. US/US renal doppler IMPRESSION: Slightly elevated resistive indices in the segmental renal arteries in the right kidney otherwise unremarkable renal ultrasound and Doppler exam..
--- NOTE | ~2022-10-05 | XR_ITS ---
EXAMINATION: XR SHOULDER, RIGHT CLINICAL INFORMATION: Fall. COMPARISON: None available. TECHNIQUE: Three views of the right shoulder. FINDINGS: Mildly displaced distal clavicular fracture. The AC joint and acromioclavicular interval are maintained. No discrete additional fractures or subluxation. No unexpected radiopaque foreign bodies. XR/XR shoulder RT min 2V IMPRESSION: Mildly displaced distal clavicular fracture. Recommend correlation with already ordered CT chest dictated separately.
--- NOTE | ~2022-10-05 | CT_ITS ---
EXAMINATION: CT HEAD WITHOUT CONTRAST CT CERVICAL SPINE WITHOUT CONTRAST CLINICAL INFORMATION: Fall. COMPARISON: CT head 11/23/2020. CT cervical spine 04/07/2019. TECHNIQUE: Contiguous axial imaging was performed from the skull base to vertex without intravenous administration of contrast. Contiguous axial imaging was performed from the upper chest through the skull base without intravenous administration of contrast. Coronal and sagittal reformats were obtained at the acquisition workstation. This CT examination was performed using dose optimization techniques as appropriate, variously including the following: *Automated exposure control *Adjustment of mA and/or kV according to patient size (this includes techniques or standardized protocols for targeted exams where dose is matched to indication/reason for exam; i.e. extremities or head) *Use of iterative reconstruction technique DLP: 704 and 290 mGy-cm FINDINGS: Head: There is no evidence of acute intracranial hemorrhage or edematous territorial infarction. A few foci of hypoattenuation in the periventricular and deep white matter are consistent with mild microangiopathy. Isabel-white matter differentiation is preserved. Proportional prominence of the ventricles and sulcal spaces. No evidence for obstructive hydrocephalus. No abnormal mass effect or midline shift. No extra-axial fluid collections. Small hematoma in the right pre-zygomatic soft tissue. No acute osseous findings. The mastoid air cells and paranasal sinuses are clear. Cervical Spine: The atlantooccipital and atlantoaxial articulations remain well aligned. No evidence of acute fractures or subluxation. [id number] multilevel cervical spine processes with various degrees of neural foraminal encroachment. There is no prevertebral soft tissue swelling. The thyroid gland and remaining cervical soft tissues are normal in appearance. The lung apices demonstrate no abnormalities. CT/CT cervical spine wo IV con IMPRESSION: 1. Small hematoma in the right pre-zygomatic soft tissue. 2. No acute intracranial pathology. 3. No acute cervical spinal fractures or malalignment.
[2022-10-05 20:23] VITALS: BP 169/71; PULSE 71; RESP 18; TEMP 36.4; O2SAT 99; BMI 25.9
--- NOTE | 2022-10-05 20:29 | ED.GENADULT ---
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 Patient states that she tripped and fell at home, going down approximately 14 stairs. Patient denies any dizziness, lightheadedness, abdominal pain, nausea, vomiting, fever, chills, blurry vision, double vision, loss of vision, chest pain, difficulty breathing, shortness of breath, back pain, night sweats, pain with urination, increased urinary frequency, increased urinary urgency, blood in her urine or stool, syncope or a near syncopal episode, bowel incontinence, bladder incontinence, bowel retention, bladder retention, or any other complaints at this time. Onset (ago): minute(s) Location: right and upper extremity Radiation: non-radiation Severity: mild Severity scale (1-10): 4 Quality: aching and dull Pain Consistency: constant Relieving factors: immobilization Exacerbating factors: movement Associated symptoms: denies other symptoms Treatments prior to arrival: none Related Data Home Medications Medication Instructions Recorded Confirmed benztropine 1 mg tablet 1 mg PO BID 05/21/20 10/06/22 citalopram 20 mg tablet 30 mg PO DAILY 05/21/20 10/06/22 clonazepam 1 mg tablet 1 mg PO BID 05/21/20 10/06/22 omeprazole 20 mg capsule,delayed 20 mg PO DAILY 05/21/20 10/06/22 release oxcarbazepine 600 mg tablet 600 mg PO TID 05/21/20 10/06/22 simvastatin 40 mg tablet 40 mg PO BEDTIME 05/21/20 10/06/22 docusate sodium 100 mg capsule 100 mg PO DAILY PRN Constipation 10/06/22 10/06/22 Allergies Allergy/AdvReac Type Severity Reaction Status Date / Time No Known Allergies Allergy Verified 10/05/22 20:23 [No Known Allergies*] Review of Systems Constitutional: Constitutional: Reports no additional constitutional complaints, Denies chills, Denies fever(s) and Denies night sweats Eyes: Eyes: Reports no additional eye complaints, Denies blurry vision, Denies change in vision, Denies diplopia, Denies eye discharge, Denies loss of vision and Denies eye pain ENT: Denies dizziness Cardiovascular: Cardiovascular: Reports no additional cardiovascular complaints, Denies chest pain, Denies lightheadedness, Denies Loss of Consciousness and Denies dyspnea Respiratory: Respiratory: Reports no additional respiratory complaints and Denies dyspnea Gastrointestinal: Gastrointestinal: Reports no additional gastrointestinal complaints, Denies abdominal pain, Denies melena, Denies hematochezia, Denies change in bowel habits and Denies change in stool character Genitourinary: Genitourinary: Denies hematuria, Denies urinary frequency, Denies dysuria, Denies urinary incontinence, Denies urinary hesitancy and Denies urinary urgency Musculoskeletal: Musculoskeletal: Reports no additional musculoskeletal complaints, Denies numbness and Denies tingling Comments: right shoulder pain Neurologic: Denies dizziness, Denies loss of vision, Denies numbness and Denies tingling Psychiatric: Psychiatric: Reports no additional psychiatric complaints Endocrine: Endocrine: Reports no additional endocrine complaints Hematologic/Lymphatic: Hematologic/Lymphatic: Reports no additional hematologic/lymphatic complaints Allergic/Immunologic: Allergic/Immunologic: Reports no additional allergic/immunologic complaints [facility] Past Medical History Attestation statement: The following information was validated with the patient. (all information was validated with the patient's stepson) Source: old records reviewed, obtained from family (patient's step son provided additional history and confirmed the history provided by the patient.) and nursing notes reviewed Medical History Anxiety Depression GERD (gastroesophageal reflux disease) HTN (hypertension) Microscopic hematuria Pelvic pain UTI (urinary tract infection) Surgical History Hx of tubal ligation Family History Family History Mother Diabetes HTN (hypertension) Father HTN (hypertension) Social History Social History Household Members: Spouse Housing: Apartment Alcohol intake: current Alcohol intake frequency: holidays/special occasions only Patient Tobacco Use Status: Current everyday Tobacco user Cigarettes Per Day: 1 Years Smoked: 22 Smoked in Last 30 Days: Yes Use of substances other than those prescribed or required for medical reasons: No Substance Use Type: Marijuana Advance Directives: No Advance Directives Information Provided: No Nutrition Risks: No Nutritional Risk Patient : No Sexual orientation: Straight/Heterosexual Gender identity: Female Physical Exam ED Vital Signs: Vital Signs - 24 hr 10/05/22 20:23 10/05/22 20:39 10/05/22 22:51 Temperature 97.6 F 98.2 F 97.8 F Pulse Rate 71 72 64 Respiratory Rate 18 15 16 Blood Pressure 169/71 H 150/64 H 193/80 H Pulse Oximetry 99 98 98 Oxygen Delivery Method Room Air Room Air 10/06/22 01:25 Temperature 97.6 F Pulse Rate 81 Respiratory Rate 21 H Blood Pressure 111/50 L Pulse Oximetry 97 Oxygen Delivery Method Room Air BMI result Body Mass Index 25.9 Const General: cooperative, no acute distress, alert and awake Nutritional Appearance: well nourished Orientation/consciousness: patient oriented x3 Limitations: no limitations HENMT Other: small abrasion to the top of the head, no gaping areas, no active bleeding Ears: hearing grossly normal bilaterally and external ears normal General nose exam: Normal external nose present, no nasal discharge noted and no epistaxis Face and sinus: Yes normal facial exam, No abrasion and No laceration Mouth: Normal oral and palatal mucosa present, no drooling and no muffled voice Eyes General: appearance normal, both eyes and all related structures Periorbital: periorbital findings normal Eyelids: Yes eyelids normal Conjunctivae: conjunctivae normal Pupils: Equal, round and reactive pupils present EOM: EOMs intact bilaterally Neck Neck: Yes normal visual inspection, Yes full ROM and Yes no lymphadenopathy Chest Chest palpation & inspection: normal inspection of the chest Resp Effort & Inspection: normal respiratory effort and able to speak in complete sentences GI Inspection: Yes normal to inspection Neuro General: patient oriented x3 and moves all extremities Cranial nerves: Yes Equal, round and reactive pupils present Cognition (Neuro): normal cognition Motor exam (neuro): 5/5 motor strength present throughout Sensory Exam: Normal double simultaneous stimulation for sensation Coordination: [id number] test normal Extrem Other: pain with palpation of the right shoulder complex, decrease ROM to the right shoulder secondary to pain General: Yes normal to inspection and Yes capillary refill normal Psych Appearance: grossly normal Mental Status: mental status grossly normal Affect: normal affect Attitude: cooperative Thought process: Normal thought process present Thought content: Normal thought content present Insight: Good insight present (Psych) Course Course Course Narrative: RME: Suzy presents to the ED for falling down 14 stairs and hitting head. NO loss of conscisouess. naz has abrasionsbruises on head/right upper shoulder and right rib tenderness. patient sent for imaging. Medications Administered Generic Name Dose Route Start Last Admin Trade Name Freq PRN Reason Stop Dose Admin Acetaminophen 650 mg 10/06/22 01:33 10/06/22 07:47 Acetaminophen 325 Mg Tablet PO 650 mg Q6H PRN Administration Pain, Mild (Pain Scale 1-3) Enoxaparin Sodium 40 mg 10/06/22 08:00 10/06/22 07:48 Enoxaparin Sodium 40 Mg/0.4 Ml Syringe SUBCUT 40 mg Q24H DARLIN Administration Sodium Chloride 3 ml 10/06/22 08:00 10/06/22 07:37 0.9 % Sodium Chloride Flush 3 Ml Syringe IVFLUSH Not Given QSHIFT DARLIN Discontinued Medications Generic Name Dose Route Start Last Admin Trade Name Freq PRN Reason Stop Dose Admin Sodium Chloride 1,000 mls @ 150 mls/hr 10/05/22 22:00 10/06/22 01:47 Ns IVCONT Infused .[id number] DARLIN Infusion Morphine Sulfate 2 mg 10/05/22 21:06 10/05/22 21:19 Morphine Sulfate 2 Mg/Ml Cartridge IVPUSH 10/05/22 21:07 2 mg ONCE ONE Administration Protocol Ondansetron HCl 4 mg 10/05/22 21:06 10/05/22 21:19 Ondansetron Hcl 4 Mg/2 Ml Vial IVPUSH 10/05/22 21:07 4 mg ONCE ONE Administration Procedures Orthopedic Splinting/Casting Injury #1: Side: right Upper Extremity Injury Location: shoulder Upper Extremity Immobilizer: sling/shoulder immobilizer Medical Decision Making Medical Decision Making [facility] Narrative: Patient is a 57 year old assigned female at with a history of HTN, GERD, depression, and anxiety presenting to the emergency department today with right shoulder pain after a fall down stairs. Patient's physical exam was as noted in the physical exam portion of this note. Patient's blood work showed a sodium level of 125. The rest of the patient's labs are grossly normal. Patient's urine showed no acute process. Patient's right shoulder x-ray showed a mildly displaced distal clavicular fracture. Patient's abdomen/pelvis CT showed minimal superior endplate depression at T3 that is of indeterminate age. Additionally, a possible developing sigmoid volvulus. However, the patient adamantly declines abdominal pain or any decrease bowel activity. Patient's right shoulder was placed in a sling, without incident. Patient's PMS was intact prior to and after sling placement. I spoke with nephrology who recommended stopping all IV fluids and having the patient admitted. I spoke with the hospitalist who agreed to admission. I explained my physical exam findings as well as all test results to the patient and the patient's step son. I answered all questions asked by the patient and the patient's step son. Patient and the patient's step son verbalized agreement and understanding with this treatment plan and admission. Differential Diagnosis Differential Diagnoses: The differential diagnosis associated with the presentation includes Hyponatremia Right clavicle fracture T3 fracture of indeterminate age Possible devloping sigmoid colon volvulus Admission/Observation Consideration of admission/observation: Escalation of care including admission/observation considered Patient admitted. Consult Healthcare Provider Management of the patient was discussed with: Hospitalist (agreed to admission.) and Guest Experience Captain (spoke to nephrology as noted in the MDM portion of this note.) Lab Data [facility] Lab Attestation statement: I reviewed the patient's lab results. My interpretation of these results are in the MDM portion of this note. 10/05/22 21:18 10/05/22 23:29 Labs: Lab Results 10/05/22 10/05/22 10/05/22 Range/Units 21:18 21:18 21:18 WBC 8.3 (4.8-10.8) X10*3/uL RBC 3.36 L (4.20-5.50) X10*6/uL Hgb 11.5 L (12.0-16.0) g/dl Hct 32.1 L (37.0-47.0) % MCV 95.5 (80.0-98.0) fL MCH 34.2 H (27.0-33.0) pg MCHC 35.8 H (31.0-35.0) g/dl RDW 11.4 (11.0-16.0) % Plt Count 142 L (160-400) X10*3/uL MPV 9.0 L (9.4-12.3) fL Immature Gran % (Auto) 0.5 H (0.0-0.4) % Neut % (Auto) 70.2 (45-73) % Lymph % (Auto) 19.8 L (20-40) % [place] % (Auto) 7.7 (2-11) % Eos % (Auto) 1.6 (0-4) % Baso % (Auto) 0.2 (0-2) % Lymph # (Auto) 1.7 (1.2-4.9) X10*3/uL [place] # (Auto) 0.6 (0.1-1.2) X10*3/uL Eos # (Auto) 0.1 (0.0-0.4) X10*3/uL Baso # (Auto) 0.0 (0.0-0.2) X10*3/uL Abs Immat Gran (auto) 0.04 H (0.00-0.03) X10*3/uL Absolute Neuts (auto) 5.9 (2.0-8.3) x10*3/uL Absolute Nucleated RBC 0.000 (0.0-0.012) X10*3/uL Nucleated RBC % (auto) 0.0 (0.0-0.2) /100WBC PT 12.7 (11.1-13.3) SEC INR 1.0 (0.9-1.1) APTT 33.6 (26.0-36.4) SEC Sodium 125 L (135-145) mmol/L Potassium 3.6 (3.3-5.1) mmol/L Chloride 94 L (96-108) mmol/L Carbon Dioxide 23 (22-29) mmol/L Anion Gap 12 (12-20) BUN 10 (9-16) mg/dL Creatinine 0.84 (0.5-1.4) mg/dL Estim Creat Clear Calc 69.2 Estimated GFR > 60 Random Glucose 127 H (60-115) mg/dL Osmolality (281-305) mosm/kg Calcium 9.4 (8.4-10.2) mg/dL Magnesium 1.9 (1.6-2.6) mg/dL Total Bilirubin 0.3 (0.0-1.0) mg/dL AST 33 H (5-31) U/L ALT 22 (0-31) U/L Alkaline Phosphatase 88 (39-117) U/L Total Creatine Kinase 166 H (26-140) U/L Total Protein 7.2 (6.5-8.0) g/dL Albumin 4.2 (3.5-5.0) g/dL 10/05/22 10/06/22 Range/Units 23:29 00:44 WBC (4.8-10.8) X10*3/uL RBC (4.20-5.50) X10*6/uL Hgb (12.0-16.0) g/dl Hct (37.0-47.0) % MCV (80.0-98.0) fL MCH (27.0-33.0) pg MCHC (31.0-35.0) g/dl RDW (11.0-16.0) % Plt Count (160-400) X10*3/uL MPV (9.4-12.3) fL Immature Gran % (Auto) (0.0-0.4) % Neut % (Auto) (45-73) % Lymph % (Auto) (20-40) % [place] % (Auto) (2-11) % Eos % (Auto) (0-4) % Baso % (Auto) (0-2) % Lymph # (Auto) (1.2-4.9) X10*3/uL [place] # (Auto) (0.1-1.2) X10*3/uL Eos # (Auto) (0.0-0.4) X10*3/uL Baso # (Auto) (0.0-0.2) X10*3/uL Abs Immat Gran (auto) (0.00-0.03) X10*3/uL Absolute Neuts (auto) (2.0-8.3) x10*3/uL Absolute Nucleated RBC (0.0-0.012) X10*3/uL Nucleated RBC % (auto) (0.0-0.2) /100WBC PT (11.1-13.3) SEC INR (0.9-1.1) APTT (26.0-36.4) SEC Sodium 127 L (135-145) mmol/L Potassium 3.9 (3.3-5.1) mmol/L Chloride 95 L (96-108) mmol/L Carbon Dioxide 23 (22-29) mmol/L Anion Gap 13 (12-20) BUN 10 (9-16) mg/dL Creatinine 0.76 (0.5-1.4) mg/dL Estim Creat Clear Calc 76.5 Estimated GFR > 60 Random Glucose 119 H (60-115) mg/dL Osmolality 266 L (281-305) mosm/kg Calcium 8.8 D (8.4-10.2) mg/dL Magnesium (1.6-2.6) mg/dL Total Bilirubin 0.3 (0.0-1.0) mg/dL AST 30 (5-31) U/L ALT 21 (0-31) U/L Alkaline Phosphatase 84 (39-117) U/L Total Creatine Kinase (26-140) U/L Total Protein 6.9 (6.5-8.0) g/dL Albumin 4.0 (3.5-5.0) g/dL Independent Interpretation I performed an independent interpretation of an: Plain X-Ray and CT Scan Interpretation: My interpretation is in agreement with the radiologist's impression of these imaging studies. EXAMINATION: XR SHOULDER, RIGHT CLINICAL INFORMATION: Fall.? COMPARISON: None available.? TECHNIQUE: Three views of the right shoulder. FINDINGS: Mildly displaced distal clavicular fracture. The AC joint and acromioclavicular interval are maintained. No discrete additional fractures or subluxation. No unexpected radiopaque foreign bodies.? XR/XR shoulder RT min 2V IMPRESSION: Mildly displaced distal clavicular fracture. Recommend correlation with already ordered CT chest dictated separately. Dictated By: Donna Osborne Signed By: Electronically signed by Donna?Dylon 10/05/22 2218 EXAMINATION: CT HEAD WITHOUT CONTRAST CT CERVICAL SPINE WITHOUT CONTRAST CLINICAL INFORMATION: Fall.? COMPARISON: CT head 11/23/2020. CT cervical spine 04/07/2019. TECHNIQUE: Contiguous axial imaging was performed from the skull base to vertex without intravenous administration of contrast. Contiguous axial imaging was performed from the upper chest through the skull base without intravenous administration of contrast. Coronal and sagittal reformats were obtained at the acquisition workstation. This CT examination was performed using dose optimization techniques as appropriate, variously including the following: *Automated exposure control *Adjustment of mA and/or kV according to patient size (this includes techniques or standardized protocols for targeted exams where dose is matched to indication/reason for exam; i.e. extremities or head) *Use of iterative reconstruction technique DLP: 704 and 290 mGy-cm FINDINGS: Head: There is no evidence of acute intracranial hemorrhage or edematous territorial infarction. A few foci of hypoattenuation in the periventricular and deep white matter are consistent with mild microangiopathy. Isabel-white matter differentiation is preserved. Proportional prominence of the ventricles and sulcal spaces. No evidence for obstructive hydrocephalus. No abnormal mass effect or midline shift. No extra-axial fluid collections. Small hematoma in the right pre-zygomatic soft tissue. No acute osseous findings. The mastoid air cells and paranasal sinuses are clear. Cervical Spine: The atlantooccipital and atlantoaxial articulations remain well aligned. No evidence of acute fractures or subluxation. [id number] multilevel cervical spine processes with various degrees of neural foraminal encroachment. There is no prevertebral soft tissue swelling. The thyroid gland and remaining cervical soft tissues are normal in appearance. The lung apices demonstrate no abnormalities. CT/CT cervical spine wo IV con IMPRESSION: 1.? Small hematoma in the right pre-zygomatic soft tissue. 2.? No acute intracranial pathology. 3.? No acute cervical spinal fractures or malalignment. ? Dictated By: Donna Osborne Signed By: Electronically signed by Donna?Dylon 10/05/22 2301 EXAMINATION: CT CHEST, ABDOMEN AND PELVIS WITHOUT CONTRAST CLINICAL INFORMATION: Fall down stairs. Right rib tenderness. COMPARISON: Multiple priors with the last abdomen and pelvic CT scan of 02/08/2022 and chest x-ray of 04/07/2019. TECHNIQUE: Multidetector volumetric imaging was performed from the thoracic inlet through the pubic symphysis following the administration of: Oral contrast: No. Intravenous contrast: No. Sagittal and coronal reformatted images were obtained on the technologist workstation. Total exam dose-length product: 1579 mGy-cm FINDINGS: CHEST: Multiple respiratory motion artifacts limit evaluation. The aorta and central pulmonary arteries are normal in caliber. Coronary calcifications are noted. Cardiac size is normal. No evidence of pericardial effusion or mediastinal fluid collection/hematoma. Trachea and central bronchi are well patent. No evidence of axillary, mediastinal or hilar adenopathy. No focal nodule is noted in the visualized thyroid. Calcific atherosclerosis of the aorta. Evaluation of the lung parenchyma is limited due to multiple respiratory motion artifacts; however, no discrete nodule, mass or focal consolidation is noted. No evidence of pleural effusions or pneumothorax. The visualized chest wall soft tissues are grossly unremarkable. Note is made of a nondisplaced or fracture through the lateral end of the right clavicle. Acromioclavicular alignment is maintained. Within the limits of study, no definite rib fractures are identified. Visualized portions of the scapulae and proximal humeri bilaterally are intact. Sternum is intact. Visualized left clavicle appears intact. Mild thoracic kyphosis is noted. Minimal superior endplate depression at the T3 is of indeterminate age; however, is new compared to previous cervical spine CT scan of 04/07/2019. Otherwise, vertebral body heights and alignment are maintained. Intervertebral disc spaces are preserved. Multilevel mild degenerative changes are noted with anterior hypertrophic osteophytic endplate spurring. ABDOMEN AND PELVIS: Evaluation is limited by multiple respiratory motion artifacts. Noncontrast liver, spleen, adrenal glands, pancreas and biliary tree grossly appear unremarkable. Gallbladder is mildly contracted. No evidence of radiopaque gallstones or obvious pericholecystic inflammatory changes. There is somewhat hyperattenuation of the intraluminal contents in the gallbladder which may suggest presence of sludge in the gallbladder. The kidneys are normal in size, shape and attenuation. No hydroureteronephrosis. No radiopaque urinary tract calculi are noted. No perinephric stranding. Urinary bladder is significantly underdistended and therefore not optimally evaluated. The uterus is mildly deviated to the left. Unremarkable CT appearance of the uterus. No adnexal mass. Multiple phleboliths are noted in the pelvis bilaterally. The sigmoid colon is tortuous and extends into the left mid to upper hemiabdomen; a portion of the sigmoid colon demonstrates mild gaseous distention measuring 3.1 cm (series 11, image 33 of 86) with very narrow caliber and efferent loops; the finding is nonspecific and probably related to colonic spasm rather than developing sigmoid volvulus. There is no evidence of colonic wall thickening or pericolonic fat stranding. Presumed appendix is grossly unremarkable. A 0.9 cm oval soft tissue nodule posterior to the right-sided colon in the mid hemiabdomen (series 12, image 333) is a stable finding since previous CT scan of 03/26/2007. There is no evidence of free intraperitoneal air or fluid. Aortoiliac vessels are normal in caliber. No evidence of pathologically-enlarged lymph nodes. No significant abdominal wall hernia. No significant abdominal wall hematoma is noted. No acute or suspicious osseous abnormality in the abdomen and pelvis. The vertebral body heights and alignment in the lumbar spine are maintained. Intervertebral disc spaces are preserved. Mild multilevel degenerative changes are noted in the lumbar spine with marginal anterior endplate osteophytic spurring. CT/CT abdomen pelvis wo IV con IMPRESSION: 1. Nondisplaced fracture through the lateral end of the right clavicle. Within the limits of study, no definite evidence of right rib fracture. ? 2. Minimal superior endplate depression at T3 is of indeterminate age; however, is new compared to previous CT scan of 04/07/2019. ? 3. Otherwise, no acute traumatic injuries are identified in the chest, abdomen, and pelvis. ? 4. No fracture or malalignment in the thoracolumbar spine. ? 5. Redundant, tortuous and somewhat mobile sigmoid colon extending into the left upper abdomen, with appearance of the sigmoid colon in the upper abdomen as described above, which is nonspecific. The possibility of developing sigmoid volvulus here is thought to be very less likely ; however, recommend clinical correlation. ? Findings were discussed with DIONISIO Guillory at 10:41PM on 10/05/2022 at 10:35 PM. Dictated By: Deanna Breen MD Signed By: Electronically signed by Deanna Breen MD 10/05/22 1334 Radiology Impression Discussion of test interpretation with radiology: I have reviewed the radiologist's reading. Independent Historian Clinical information obtained from an independent historian. History obtained from or confirmed by: Other (patient's step stop provided additional history and confirmed the history provided by the patient.) Critical Care Time Critical Care Time Critical Care Time: Yes Total Critical Care Time: 45 Attestation: I spent 45 minutes of Critical Care Time with this patient. This does not include time spent on separately reported billable procedures. Discharge Plan Discharge Clinical Impression: Acute hyponatremia, Clavicle fracture Patient Disposition: Admitted As Inpatient
[2022-10-05 20:39] VITALS: BP 150/64; PULSE 72; RESP 15; TEMP 36.8; O2SAT 98
[2022-10-05] MEDS: ondansetron HCL 4 MG/2 ML VIAL IVPUSH (21:19)
[2022-10-05] MEDS: Morphine Sulfate 2 MG/ML CARTRIDGE IVPUSH (21:19)
[2022-10-05 21:22] LABS: MANUAL DIFF FLAG NO
[2022-10-05 21:25] LABS: Basophils Percent Auto 0.2 % (0-2); Eosinophils Absolute Auto 0.1 X10*3/uL (0.0-0.4); Eosinophils Percent Auto 1.6 % (0-4); Hematocrit 32.1 % (37.0-47.0); Hemoglobin 11.5 g/dl (12.0-16.0); Imm Gran Abs Auto 0.04 X10*3/uL (0.00-0.03); Imm Gran Pct Auto 0.5 % (0.0-0.4); Lymphocytes Absolute Auto 1.7 X10*3/uL (1.2-4.9); Lymphocytes Percent Auto 19.8 % (20-40); Mean Corpuscular HGB Conc 35.8 g/dl (31.0-35.0); Mean Corpuscular Hemoglobin 34.2 pg (27.0-33.0); Mean Corpuscular Volume 95.5 fL (80.0-98.0); Monocytes Absolute Auto 0.6 X10*3/uL (0.1-1.2); Monocytes Percent Auto 7.7 % (2-11); Neutrophils Absolute Auto 5.9 x10*3/uL (2.0-8.3); Neutrophils Percent Auto 70.2 % (45-73); Platelet Count 142 X10*3/uL (160-400); Red Blood Count 3.36 X10*6/uL (4.20-5.50); Red Cell Distribution Width 11.4 % (11.0-16.0); White Blood Count 8.3 X10*3/uL (4.8-10.8)
[2022-10-05 21:33] LABS: Prothrombin Time 12.7 SEC (11.1-13.3)
[2022-10-05 21:35] LABS: Partial Thromboplastin Time 33.6 SEC (26.0-36.4)
[2022-10-05 21:45] LABS: Alanine Aminotransferase 22 U/L (0-31); Albumin Level 4.2 g/dL (3.5-5.0); Alkaline Phosphatase 88 U/L (39-117); Anion Gap 12 (12-20); Aspartate Amino Transferase 33 U/L (5-31); Bilirubin Total 0.3 mg/dL (0.0-1.0); Blood Urea Nitrogen 10 mg/dL (9-16); Calcium 9.4 mg/dL (8.4-10.2); Carbon Dioxide 23 mmol/L (22-29); Chloride 94 mmol/L (96-108); Creatinine Clr Calc Pharmacy 69.2; Estimated Glomerular Filt Rate > 60; Glucose Random 127 mg/dL (60-115); Magnesium 1.9 mg/dL (1.6-2.6); Potassium 3.6 mmol/L (3.3-5.1); Sodium 125 mmol/L (135-145); Total Protein 7.2 g/dL (6.5-8.0)
[2022-10-05] MEDS: 0.9 % Sodium Chloride 1,000 ML 150 ML IVCONT (22:06)
[2022-10-05 22:51] VITALS: BP 193/80; PULSE 64; RESP 16; TEMP 36.6; O2SAT 98
--- NOTE | 2022-10-05 22:53 | PC.NURSE ---
patient son in law phone number [phone]
[2022-10-05 23:49] LABS: Alanine Aminotransferase 21 U/L (0-31); Alkaline Phosphatase 84 U/L (39-117); Anion Gap 13 (12-20); Aspartate Amino Transferase 30 U/L (5-31); Bilirubin Total 0.3 mg/dL (0.0-1.0); Blood Urea Nitrogen 10 mg/dL (9-16); Calcium 8.8 mg/dL (8.4-10.2); Carbon Dioxide 23 mmol/L (22-29); Chloride 95 mmol/L (96-108); Creatinine Clr Calc Pharmacy 76.5; Estimated Glomerular Filt Rate > 60; Glucose Random 119 mg/dL (60-115); Potassium 3.9 mmol/L (3.3-5.1); Sodium 127 mmol/L (135-145); Total Protein 6.9 g/dL (6.5-8.0)
--- NOTE | 2022-10-06 00:13 | MHC.EDTECH ---
Call out to Nephrology oncall service at [phone] Chen, per DIONISIO Guillory
[2022-10-06 01:18] LABS: Osmolality, Serum 266 mosm/kg (281-305)
[2022-10-06 01:25] VITALS: BP 111/50; PULSE 81; RESP 21; TEMP 36.4; O2SAT 97
[2022-10-06 02:33] LABS: Anion Gap 11 (12-20); Blood Urea Nitrogen 9 mg/dL (9-16); Calcium 8.9 mg/dL (8.4-10.2); Carbon Dioxide 23 mmol/L (22-29); Chloride 98 mmol/L (96-108); Creatinine Clr Calc Pharmacy 72.7; Estimated Glomerular Filt Rate > 60; Glucose Random 117 mg/dL (60-115); Sodium 128 mmol/L (135-145)
--- NOTE | 2022-10-06 03:28 | PC.NURSE ---
pt sleeping at this time, respirations equal and unlabored, skin pwd, no apparent distress. Purewick is intact and draining appropriately. Continue plan of care for admission to med-surg unit for further observation
--- NOTE | 2022-10-06 06:00 | P.HPHOSP_ITS ---
History of Present Illness Date of Service: 10/06/22 Chief Complaint: Fall 57-year-old [place]-speaking only, history is obtained with the help of administrative fellow comes into the hospital with complaints of fall. Patient has a history of depression, hypertension, GERD, anxiety, recurrent UTI,. Patient reports that she was walking, felt slightly dizzy, had a fall and went tumbling down her steps, developing significant pain of her right shoulder. She otherwise denies any headache, no change in vision, no loss of consciousness, no seizure-like activity, reports that she has been eating and drinking well, denies any weakness numbness or tingling. No abdominal pain nausea or vomiting, no diarrhea constipation, no urinary symptoms and no lower extremity edema On arrival to the ED patient hemodynamically stable Labs are significant for normal WBC, hemoglobin of 11.5, hematocrit 32.1, sodium of 125, increased to 127 after receiving IV fluid in the ED, serum osmolality of 266, Shoulder x-ray shows mildly displaced distal clavicular fracture Head CT negative except for a small hematoma in the right pre zygomatic soft tissue Abdomen pelvic CT as well as chest CT show nondisplaced fracture through the lateral and of the right clavicle no right rib fracture, redundant tortuous and somewhat mobile sigmoid colon extending into the left upper abdomen with appearance of the sigmoid colon in the upper abdomen as described above which is nonspecific the possibility of developing sigmoid volvulus years thought to be very less likely Patient denies any abdominal pain no nausea vomiting Nephrology was consulted, fluids were stopped, patient will be admitted for further management Review of Systems Review of Systems: Yes all other systems are reviewed and are negative [facility] Medical History Anxiety Depression GERD (gastroesophageal reflux disease) HTN (hypertension) Microscopic hematuria Pelvic pain UTI (urinary tract infection) Family History Mother Diabetes HTN (hypertension) Father HTN (hypertension) Surgical History Hx of tubal ligation Social History Household Members: Spouse Housing: Apartment Alcohol intake: current Alcohol intake frequency: holidays/special occasions only Patient Tobacco Use Status: Current everyday Tobacco user Cigarettes Per Day: 1 Years Smoked: 22 Smoked in Last 30 Days: Yes Use of substances other than those prescribed or required for medical reasons: No Substance Use Type: Marijuana Advance Directives: No Advance Directives Information Provided: No Nutrition Risks: No Nutritional Risk Patient : No Sexual orientation: Straight/Heterosexual Gender identity: Female Meds Allergies Allergy/AdvReac Type Severity Reaction Status Date / Time No Known Allergies Allergy Verified 10/05/22 20:23 [No Known Allergies*] Active Medications: Current Medications Acetaminophen (Acetaminophen 325 Mg Tablet) 650 mg PO Q6H PRN PRN Reason: Pain, Mild (Pain Scale 1-3) Docusate Sodium (Docusate Sodium 100 Mg Capsule) 100 mg PO DAILY PRN PRN Reason: Constipation Enoxaparin Sodium (Enoxaparin Sodium 40 Mg/0.4 Ml Syringe) 40 mg SUBCUT Q24H DARLIN Ondansetron HCl (Ondansetron Hcl 4 Mg/2 Ml Vial) 4 mg IVPUSH Q8H PRN PRN Reason: Nausea and Vomiting Pharmacy Consult (Consult Rx Perform Med Rec) 1 each MISCELLANE ONCE PRN PRN Reason: Consult order Sodium Chloride (0.9 % Sodium Chloride Flush 3 Ml Syringe) [facility] Medications Medication Instructions Recorded Confirmed Last Taken Type benztropine 1 mg tablet 1 mg PO BID 05/21/20 10/06/22 05/21/20 History 1 citalopram 20 mg tablet 30 mg PO DAILY 05/21/20 10/06/22 05/21/20 History clonazepam 1 mg tablet 1 mg PO BID 05/21/20 10/06/22 05/21/20 History 1 omeprazole 20 mg capsule,delayed 20 mg PO DAILY 05/21/20 10/06/22 05/21/20 History release oxcarbazepine 600 mg tablet 600 mg PO TID 05/21/20 10/06/22 05/21/20 History 2 simvastatin 40 mg tablet 40 mg PO BEDTIME 05/21/20 10/06/22 05/20/20 History docusate sodium 100 mg capsule 100 mg PO DAILY PRN Constipation 10/06/22 10/06/22 Unknown History Physical Exam Vital Signs and Narrative: Vital Signs: Last Vital Signs Temp 97.6 F 10/06/22 01:25 Pulse 81 10/06/22 01:25 Resp 21 H 10/06/22 01:25 BP 111/50 L 10/06/22 01:25 Pulse Ox 97 10/06/22 01:25 O2 Del Method Room Air 10/06/22 01:25 BMI result Body Mass Index 25.9 Const: General: cooperative and no acute distress Orientation/consciousness: patient oriented x3 Eyes: General: appearance normal, both eyes and all related structures Pupils: Equal, round and reactive pupils present Resp: Effort & Inspection: normal respiratory effort Auscultation: clear to auscultation bilaterally Cardio: Rate: regular rate Rhythm: regular rhythm GI: Other: Abdomen is slightly tender on deep palpation, no rebound or guarding Palpation (GI): Soft to palpation Auscultation: normal bowel sounds Skin: General skin exam: no rashes or lesions noted Neuro: General: patient oriented x3 Cranial nerves: Yes Equal, round and reactive pupils present Cognition (Neuro): normal cognition Extrem: Other: Right arm in a sling General: Yes normal to inspection and Yes no pedal edema Results Labs 10/05/22 21:18 10/06/22 02:04 Labs: Laboratory Results - last 24 hr 10/05/22 10/05/22 10/05/22 21:18 21:18 21:18 MCV 95.5 MCH 34.2 H MCHC 35.8 H RDW 11.4 Plt Count 142 L MPV 9.0 L Immature Gran % (Auto) 0.5 H Neut % (Auto) 70.2 Lymph % (Auto) 19.8 L [place] % (Auto) 7.7 Eos % (Auto) 1.6 Baso % (Auto) 0.2 Lymph # (Auto) 1.7 [place] # (Auto) 0.6 Eos # (Auto) 0.1 Baso # (Auto) 0.0 Abs Immat Gran (auto) 0.04 H Absolute Neuts (auto) 5.9 Absolute Nucleated RBC 0.000 Nucleated RBC % (auto) 0.0 PT 12.7 INR 1.0 APTT 33.6 Anion Gap 12 Estim Creat Clear Calc 69.2 Estimated GFR > 60 Random Glucose 127 H Osmolality Calcium 9.4 Magnesium 1.9 Total Bilirubin 0.3 AST 33 H ALT 22 Alkaline Phosphatase 88 Total Creatine Kinase 166 H Total Protein 7.2 Albumin 4.2 10/05/22 10/06/2210/06/23 23:29 00:44 02:04 MCV MCH MCHC RDW Plt Count MPV Immature Gran % (Auto) Neut % (Auto) Lymph % (Auto) [place] % (Auto) Eos % (Auto) Baso % (Auto) Lymph # (Auto) [place] # (Auto) Eos # (Auto) Baso # (Auto) Abs Immat Gran (auto) Absolute Neuts (auto) Absolute Nucleated RBC Nucleated RBC % (auto) PT INR APTT Anion Gap 13 11 L Estim Creat Clear Calc 76.5 72.7 Estimated GFR > 60 > 60 Random Glucose 119 H 117 H Osmolality 266 L Calcium 8.8 D 8.9 Magnesium Total Bilirubin 0.3 AST 30 ALT 21 Alkaline Phosphatase 84 Total Creatine Kinase Total Protein 6.9 Albumin 4.0 Imaging Radiologist's Impressions: Impressions Shoulder X-Ray 10/05/22 20:50 IMPRESSION: Mildly displaced distal clavicular fracture. Recommend correlation with already ordered CT chest dictated separately. Cervical Spine CT 10/05/22 21:13 IMPRESSION: 1. Small hematoma in the right pre-zygomatic soft tissue. 2. No acute intracranial pathology. 3. No acute cervical spinal fractures or malalignment. Head CT 10/05/22 21:13 IMPRESSION: 1. Small hematoma in the right pre-zygomatic soft tissue. 2. No acute intracranial pathology. 3. No acute cervical spinal fractures or malalignment. Abdomen/Pelvis CT 10/05/22 21:21 IMPRESSION: 1. Nondisplaced fracture through the lateral end of the right clavicle. Within the limits of study, no definite evidence of right rib fracture. 2. Minimal superior endplate depression at T3 is of indeterminate age; however, is new compared to previous CT scan of 04/07/2019. 3. Otherwise, no acute traumatic injuries are identified in the chest, abdomen, and pelvis. 4. No fracture or malalignment in the thoracolumbar spine. 5. Redundant, tortuous and somewhat mobile sigmoid colon extending into the left upper abdomen, with appearance of the sigmoid colon in the upper abdomen as described above, which is nonspecific. The possibility of developing sigmoid volvulus here is thought to be very less likely ; however, recommend clinical correlation. Findings were discussed with DIONISIO Guillory at 10:41PM on 10/05/2022 at 10:[address] 10/05/22 21:21 IMPRESSION: 1. Nondisplaced fracture through the lateral end of the right clavicle. Within the limits of study, no definite evidence of right rib fracture. 2. Minimal superior endplate depression at T3 is of indeterminate age; however, is new compared to previous CT scan of 04/07/2019. 3. Otherwise, no acute traumatic injuries are identified in the chest, abdomen, and pelvis. 4. No fracture or malalignment in the thoracolumbar spine. 5. Redundant, tortuous and somewhat mobile sigmoid colon extending into the left upper abdomen, with appearance of the sigmoid colon in the upper abdomen as described above, which is nonspecific. The possibility of developing sigmoid volvulus here is thought to be very less likely ; however, recommend clinical correlation. Findings were discussed with DIONISIO Guillory at 10:41PM on 10/05/2022 at 10:35 PM. Assessment and Plan (1) Acute hyponatremia: Status: Acute (2) Clavicle fracture: Status: Acute (3) Abnormal abdominal CT scan: Status: Acute Plan 57-year-old female with past medical history of hypertension comes into the hospital after a fall found to have a clavicle fracture acute hyponatremia # acute hyponatremia - has had episodes of hyponatremia in the past - serum osmolality of 266, urine osmolality, creatinine, random sodium pending - at this time will place on fluid restriction - nephrology consulted - follow BMP closely # clavicle fracture - placed in a sling - pain control # abnormal abdominal CT - showing possible developing volvulus - general surgery consulted - abdomen soft, mildly tender, acute abdomen # hypertension - stable - does not appear to be on antihypertensives Continue mood stabilizers DVT prophylaxis: Lovenox Given patient's acute hyponatremia patient will require minimum 2 nights inpatient hospital stay for further management and monitoring Time Spent With Patient Time: Total time managing care of this patient today ____ minutes. Quality Stroke Does the patient have a stroke diagnosis?: No VTE Prior VTE?: No VTE Risk Level:: Medical - moderate - high VTE Device Contraindication: Treatment Not Indicated VTE Drug Contraindication: N/A - Med Ordered
[2022-10-06 07:11] LABS: MANUAL DIFF FLAG NO
[2022-10-06 07:15] LABS: Basophils Percent Auto 0.3 % (0-2); Eosinophils Absolute Auto 0.1 X10*3/uL (0.0-0.4); Eosinophils Percent Auto 1.2 % (0-4); Hematocrit 34.8 % (37.0-47.0); Hemoglobin 12.4 g/dl (12.0-16.0); Imm Gran Abs Auto 0.03 X10*3/uL (0.00-0.03); Imm Gran Pct Auto 0.5 % (0.0-0.4); Lymphocytes Absolute Auto 1.3 X10*3/uL (1.2-4.9); Lymphocytes Percent Auto 19.8 % (20-40); Mean Corpuscular HGB Conc 35.6 g/dl (31.0-35.0); Mean Corpuscular Volume 95.3 fL (80.0-98.0); Mean Platelet Volume 8.9 fL (9.4-12.3); Monocytes Absolute Auto 0.7 X10*3/uL (0.1-1.2); Monocytes Percent Auto 10.5 % (2-11); Neutrophils Absolute Auto 4.5 x10*3/uL (2.0-8.3); Neutrophils Percent Auto 67.7 % (45-73); Platelet Count 143 X10*3/uL (160-400); Red Blood Count 3.65 X10*6/uL (4.20-5.50); Red Cell Distribution Width 11.4 % (11.0-16.0); White Blood Count 6.6 X10*3/uL (4.8-10.8)
[2022-10-06 07:17] VITALS: BP 169/78; PULSE 67; RESP 14; O2SAT 100
--- NOTE | 2022-10-06 07:24 | PC.NURSE ---
Pt had uneventful night, sleeping, respirations even and unlabored, skin pwd, no apparent distress. R arm sling still intact. Continue plan of care for med-srug admission. Report given to MUKUND Márquez
--- NOTE | 2022-10-06 07:40 | PC.NURSE ---
Addendum entered by Catina Tipton RN 10/06/22 10:00: pt was accidentally given meal tray by a tech that was not aware of pt's NPO status before this RN was aware Original Note: assumed care of pt at 0700. pt a&o x4, pleasant, calm, and cooperative. reporting 10/10 pain in her head. will medicate prn pain meds per apr. sitting up in bed. ate breakfast. call kennedy within reach
[2022-10-06] MEDS: Acetaminophen 325 MG TABLET 650 MG PO ×2 (07:47→15:58)
[2022-10-06] MEDS: Enoxaparin Sodium 40 MG/0.4 ML SYRINGE SUBCUT (07:48)
[2022-10-06 08:11] LABS: Appearance Urine Clear; Color Urine Yellow; Glucose Urine UA Negative (Negative); Leukocyte Esterase Urine Moderate (2+) (Negative); Nitrite Urine Negative (Negative); Specific Gravity - Urine <= 1.005 (1.005-1.025); UMIC TRIGGER UACC YES; Urine Blood Small (1+) (Negative); Urine Ketones Negative (Negative); Urine Protein Negative (Neg-Trace)
[2022-10-06 08:16] LABS: Bacteria Urine 3+ (None Seen); Hyaline Casts Urine 0-2 /LPF (0-2); Squamous Epithelial Cell Urine 0-2 /HPF (0-2); UACC Culture Trigger YES; WBC Urine 21-50 /HPF (0-5)
--- NOTE | 2022-10-06 08:16 | PM.CNGS ---
History of Present Illness Consult details Consult date: 10/06/22 Narrative: Surgical consultation of 57-year-old female with a plethora of medical problems because of an incidental finding on CT scan of redundant sigmoid colon. Patient denies any abdominal symptoms or complaints. She has time diet based on all bowel habits. She does not having abdominal swelling. Chart was reviewed and patient evaluated. CT scan most consistent with redundant sigmoid colon but no other acute pathology. [facility] Past Medical History Medical History Anxiety Depression GERD (gastroesophageal reflux disease) HTN (hypertension) Microscopic hematuria Pelvic pain UTI (urinary tract infection) Family History Family History Mother Diabetes HTN (hypertension) Father HTN (hypertension) Surgical History Surgical History Hx of tubal ligation Social History Social History Household Members: Spouse Housing: Apartment Alcohol intake: current Alcohol intake frequency: holidays/special occasions only Patient Tobacco Use Status: Current everyday Tobacco user Cigarettes Per Day: 1 Years Smoked: 22 Smoked in Last 30 Days: Yes Use of substances other than those prescribed or required for medical reasons: No Substance Use Type: Marijuana Advance Directives: No Advance Directives Information Provided: No Nutrition Risks: No Nutritional Risk Patient : No Sexual orientation: Straight/Heterosexual Gender identity: Female Meds Allergies Allergy/AdvReac Type Severity Reaction Status Date / Time No Known Allergies Allergy Verified 10/05/22 20:23 [No Known Allergies*] Active Medications: Current Medications Acetaminophen (Acetaminophen 325 Mg Tablet) 650 mg PO Q6H PRN PRN Reason: Pain, Mild (Pain Scale 1-3) Last Admin: 10/06/22 07:47 Dose: 650 mg Benztropine Mesylate (Benztropine Mesylate 1 Mg Tablet) 1 mg PO BID [facility] Clonazepam (Clonazepam 1 Mg Tablet) 1 mg PO BID [facility] Docusate Sodium (Docusate Sodium 100 Mg Capsule) 100 mg PO DAILY PRN PRN Reason: Constipation Docusate Sodium (Docusate Sodium 100 Mg Capsule) 100 mg PO DAILY PRN PRN Reason: Constipation Enoxaparin Sodium (Enoxaparin Sodium 40 Mg/0.4 Ml Syringe) 40 mg SUBCUT Q24H [facility] Last Admin: 10/06/22 07:48 Dose: 40 mg Non-Formulary Medication (Citalopram) 30 mg PO DAILY [facility] Non-Formulary Medication (Simvastatin) 40 mg PO BEDTIME [facility] Omeprazole (Omeprazole 20 Mg Capsule.Dr) 20 mg PO DAILY [facility] Ondansetron HCl (Ondansetron Hcl 4 Mg/2 Ml Vial) 4 mg IVPUSH Q8H PRN PRN Reason: Nausea and Vomiting Oxcarbazepine (Oxcarbazepine 300 Mg Tablet) 600 mg PO TID [facility] Pharmacy Consult (Consult Rx Perform Med Rec) 1 each MISCELLANE ONCE PRN PRN Reason: Consult order Sodium Chloride (0.9 % Sodium Chloride Flush 3 Ml Syringe) 3 ml IVFLUSH QSHIFT [facility] Last Admin: 10/06/22 07:37 Dose: Not Given Home Medications Medication Instructions Recorded Confirmed Last Taken Type benztropine 1 mg tablet 1 mg PO BID 05/21/20 10/06/22 05/21/20 History 1 citalopram 20 mg tablet 30 mg PO DAILY 05/21/20 10/06/22 05/21/20 History clonazepam 1 mg tablet 1 mg PO BID 05/21/20 10/06/22 05/21/20 History 1 omeprazole 20 mg capsule,delayed 20 mg PO DAILY 05/21/20 10/06/22 05/21/20 History release oxcarbazepine 600 mg tablet 600 mg PO TID 05/21/20 10/06/22 05/21/20 History 2 simvastatin 40 mg tablet 40 mg PO BEDTIME 05/21/20 10/06/22 05/20/20 History docusate sodium 100 mg capsule 100 mg PO DAILY PRN Constipation 10/06/22 10/06/22 Unknown History Physical Exam Vital Signs: Vital Signs: Last Vital Signs Temp 97.6 F 10/06/22 01:25 Pulse 67 10/06/22 07:17 Resp 14 10/06/22 07:17 BP 169/78 H 10/06/22 07:17 Pulse Ox 100 10/06/22 07:17 O2 Del Method Room Air 10/06/22 07:17 BMI result Body Mass Index 25.9 GI: Other: Abdomen soft, benign, nontender. Results Labs 10/06/22 06:46 10/06/22 02:04 Labs: Abnormal lab results 10/05/22 10/05/22 10/05/22 Range/Units 21:18 21:18 23:29 RBC 3.36 L (4.20-5.50) X10*6/uL Hgb 11.5 L (12.0-16.0) g/dl Hct 32.1 L (37.0-47.0) % MCH 34.2 H (27.0-33.0) pg MCHC 35.8 H (31.0-35.0) g/dl Plt Count 142 L (160-400) X10*3/uL MPV 9.0 L (9.4-12.3) fL Immature Gran % (Auto) 0.5 H (0.0-0.4) % Lymph % (Auto) 19.8 L (20-40) % Abs Immat Gran (auto) 0.04 H (0.00-0.03) X10*3/uL Sodium 125 L 127 L (135-145) mmol/L Chloride 94 L 95 L (96-108) mmol/L Anion Gap (12-20) Random Glucose 127 H 119 H (60-115) mg/dL Osmolality (281-305) mosm/kg AST 33 H (5-31) U/L Total Creatine Kinase 166 H (26-140) U/L 10/06/22 10/06/22 10/06/22 Range/Units 00:44 02:04 06:46 RBC 3.65 L (4.20-5.50) X10*6/uL Hgb (12.0-16.0) g/dl Hct 34.8 L (37.0-47.0) % MCH 34.0 H (27.0-33.0) pg MCHC 35.6 H (31.0-35.0) g/dl Plt Count 143 L (160-400) X10*3/uL MPV 8.9 L (9.4-12.3) fL Immature Gran % (Auto) 0.5 H (0.0-0.4) % Lymph % (Auto) 19.8 L (20-40) % Abs Immat Gran (auto) (0.00-0.03) X10*3/uL Sodium 128 L (135-145) mmol/L Chloride (96-108) mmol/L Anion Gap 11 L (12-20) Random Glucose 117 H (60-115) mg/dL Osmolality 266 L (281-305) mosm/kg AST (5-31) U/L Total Creatine Kinase (26-140) U/L Short CBC 10/05/22 10/06/22 Range/Units 21:18 06:46 WBC 8.3 6.6 (4.8-10.8) X10*3/uL Hgb 11.5 L 12.4 (12.0-16.0) g/dl Hct 32.1 L 34.8 L (37.0-47.0) % Plt Count 142 L 143 L (160-400) X10*3/uL BMP 10/05/22 10/05/22 10/06/22 21:18 23:29 02:04 Sodium 125 L 127 L 128 L Potassium 3.6 3.9 4.0 Chloride 94 L 95 L 98 Carbon Dioxide 23 23 23 BUN 10 10 9 Creatinine 0.84 0.76 0.80 Calcium 9.4 8.8 D 8.9 Cardiac Enzymes 10/05/22 Range/Units 21:18 Total Creatine Kinase 166 H (26-140) U/L Liver Function 10/05/22 10/05/22 Range/Units 21:18 23:29 Total Bilirubin 0.3 0.3 (0.0-1.0) mg/dL AST 33 H 30 (5-31) U/L ALT 22 21 (0-31) U/L Alkaline Phosphatase 88 84 (39-117) U/L Albumin 4.2 4.0 (3.5-5.0) g/dL All other labs normal. Assessment and Plan (1) Abnormal abdominal CT scan: Status: Acute Plan Incidental finding of redundant sigmoid colon. No abdominal symptoms and benign exam. At present, no acute surgical issues. Will follow-up p.r.n.. Time Spent With Patient Time: Total time managing care of this patient today ____ minutes. Procedures Date of Service Date of Service: 10/06/22
[2022-10-06 08:29] LABS: Creatinine Urine 31.61 mg/dL
[2022-10-06 08:31] LABS: Osmolality Urine 203 mosm/kg (373-1093)
[2022-10-06 09:28] LABS: Anion Gap 11 (12-20); Blood Urea Nitrogen 7 mg/dL (9-16); Calcium 9.4 mg/dL (8.4-10.2); Carbon Dioxide 25 mmol/L (22-29); Chloride 98 mmol/L (96-108); Creatinine Clr Calc Pharmacy 70.9; Estimated Glomerular Filt Rate > 60; Glucose Random 98 mg/dL (60-115); Potassium 4.2 mmol/L (3.3-5.1); Sodium 130 mmol/L (135-145)
--- NOTE | 2022-10-06 09:34 | PC.NURSE ---
awaiting verification from pharmacy of 0900 meds
--- NOTE | 2022-10-06 09:57 | PHA.MEDREC ---
Pharmacy Consult ? Medication Reconciliation Pharmacy has completed the medication reconciliation. spoke with patient to confirm medications
--- NOTE | 2022-10-06 10:01 | PC.NURSE ---
report given to Pinky DUVAL, pt to be admitted to room 354
[2022-10-06] MEDS: Benztropine Mesylate 1 MG TABLET PO ×2 (10:17→20:36)
[2022-10-06] MEDS: OXcarbazepine 300 MG TABLET 600 MG PO ×3 (10:18→20:36)
[2022-10-06] MEDS: Escitalopram Oxalate 10 MG TABLET PO (10:18)
[2022-10-06] MEDS: Omeprazole 20 MG CAPSULE.DR PO (10:18)
[2022-10-06 10:27] VITALS: BP 144/102; PULSE 63; RESP 18; TEMP 36.1; O2SAT 100
--- NOTE | 2022-10-06 10:31 | P.PNNP_ITS ---
Subjective Subjective Date of Service: 10/06/22 Principal diagnosis: Hyponatremia Physical Exam Vital Signs: Vital Signs: Last Vital Signs Temp 97.6 F 10/06/22 01:25 Pulse 67 10/06/22 07:17 Resp 14 10/06/22 07:17 BP 169/78 H 10/06/22 07:17 Pulse Ox 100 10/06/22 07:17 O2 Del Method Room Air 10/06/22 07:17 BMI result Body Mass Index 25.9 Objective Data Labs 10/06/22 06:46 10/06/22 06:46 Labs: Laboratory Results - last 24 hr 10/05/22 10/05/22 10/05/22 21:18 21:18 21:18 WBC 8.3 RBC 3.36 L Hgb 11.5 L Hct 32.1 L MCV 95.5 MCH 34.2 H MCHC 35.8 H RDW 11.4 Plt Count 142 L MPV 9.0 L Immature Gran % (Auto) 0.5 H Neut % (Auto) 70.2 Lymph % (Auto) 19.8 L [place] % (Auto) 7.7 Eos % (Auto) 1.6 Baso % (Auto) 0.2 Lymph # (Auto) 1.7 Richardson # (Auto) 0.6 Eos # (Auto) 0.1 Baso # (Auto) 0.0 Abs Immat Gran (auto) 0.04 H Absolute Neuts (auto) 5.9 Absolute Nucleated RBC 0.000 Nucleated RBC % (auto) 0.0 PT 12.7 INR 1.0 APTT 33.6 Sodium 125 L Potassium 3.6 Chloride 94 L Carbon Dioxide 23 Anion Gap 12 BUN 10 Creatinine 0.84 Estim Creat Clear Calc 69.2 Estimated GFR > 60 Random Glucose 127 H Osmolality Calcium 9.4 Magnesium 1.9 Total Bilirubin 0.3 AST 33 H ALT 22 Alkaline Phosphatase 88 Total Creatine Kinase 166 H Total Protein 7.2 Albumin 4.2 Urine Color Urine Appearance Urine pH Ur Specific [place] Urine Protein Urine Glucose (UA) Urine Ketones Urine Blood Urine Nitrite Ur Leukocyte Esterase Urine RBC Urine WBC Ur Squamous Epith Cells Urine Bacteria Hyaline Casts Urine Osmolality Ur Random Sodium Urine Creatinine 10/05/22 10/06/22 10/06/22 23:29 00:44 02:04 WBC RBC Hgb Hct MCV MCH MCHC RDW Plt Count MPV Immature Gran % (Auto) Neut % (Auto) Lymph % (Auto) Richardson % (Auto) Eos % (Auto) Baso % (Auto) Lymph # (Auto) Richardson # (Auto) Eos # (Auto) Baso # (Auto) Abs Immat Gran (auto) Absolute Neuts (auto) Absolute Nucleated RBC Nucleated RBC % (auto) PT INR APTT Sodium 127 L 128 L Potassium 3.9 4.0 Chloride 95 L 98 Carbon Dioxide 23 23 Anion Gap 13 11 L BUN 10 9 Creatinine 0.76 0.80 Estim Creat Clear Calc 76.5 72.7 Estimated GFR > 60 > 60 Random Glucose 119 H 117 H Osmolality 266 L Calcium 8.8 D 8.9 Magnesium Total Bilirubin 0.3 AST 30 ALT 21 Alkaline Phosphatase 84 Total Creatine Kinase Total Protein 6.9 Albumin 4.0 Urine Color Urine Appearance Urine pH Ur Specific [place] Urine Protein Urine Glucose (UA) Urine Ketones Urine Blood Urine Nitrite Ur Leukocyte Esterase Urine RBC Urine WBC Ur Squamous Epith Cells Urine Bacteria Hyaline Casts Urine Osmolality Ur Random Sodium Urine Creatinine 10/06/22 10/06/22 10/06/22 06:46 06:46 07:59 WBC 6.6 RBC 3.65 L Hgb 12.4 Hct 34.8 L MCV 95.3 MCH 34.0 H MCHC 35.6 H RDW 11.4 Plt Count 143 L MPV 8.9 L Immature Gran % (Auto) 0.5 H Neut % (Auto) 67.7 Lymph % (Auto) 19.8 L [place] % (Auto) 10.5 Eos % (Auto) 1.2 Baso % (Auto) 0.3 Lymph # (Auto) 1.3 [place] # (Auto) 0.7 Eos # (Auto) 0.1 Baso # (Auto) 0.0 Abs Immat Gran (auto) 0.03 Absolute Neuts (auto) 4.5 Absolute Nucleated RBC 0.000 Nucleated RBC % (auto) 0.0 PT INR APTT Sodium 130 L Potassium 4.2 Chloride 98 Carbon Dioxide 25 Anion Gap 11 L BUN 7 L Creatinine 0.82 Estim Creat Clear Calc 70.9 Estimated GFR > 60 Random Glucose 98 Osmolality Calcium 9.4 Magnesium Total Bilirubin AST ALT Alkaline Phosphatase Total Creatine Kinase Total Protein Albumin Urine Color Yellow Urine Appearance Clear Urine pH 7.0 Ur Specific [place] <= 1.005 Urine Protein Negative Urine Glucose (UA) Negative Urine Ketones Negative Urine Blood Small (1+) H Urine Nitrite Negative Ur Leukocyte Esterase Moderate (2+) H Urine RBC 11-20 H Urine WBC 21-50 H Ur Squamous Epith Cells 0-2 Urine Bacteria 3+ Hyaline Casts 0-2 Urine Osmolality Ur Random Sodium Urine Creatinine 10/06/22 10/06/22 10/06/22 07:59 07:59 07:59 WBC RBC Hgb Hct MCV MCH MCHC RDW Plt Count MPV Immature Gran % (Auto) Neut % (Auto) Lymph % (Auto) [place] % (Auto) Eos % (Auto) Baso % (Auto) Lymph # (Auto) [place] # (Auto) Eos # (Auto) Baso # (Auto) Abs Immat Gran (auto) Absolute Neuts (auto) Absolute Nucleated RBC Nucleated RBC % (auto) PT INR APTT Sodium Potassium Chloride Carbon Dioxide Anion Gap BUN Creatinine Estim Creat Clear Calc Estimated GFR Random Glucose Osmolality Calcium Magnesium Total Bilirubin AST ALT Alkaline Phosphatase Total Creatine Kinase Total Protein Albumin Urine Color Urine Appearance Urine pH Ur Specific [place] Urine Protein Urine Glucose (UA) Urine Ketones Urine Blood Urine Nitrite Ur Leukocyte Esterase Urine RBC Urine WBC Ur Squamous Epith Cells Urine Bacteria Hyaline Casts Urine Osmolality 203 L Ur Random Sodium 41.0 Urine Creatinine 31.61 Procedures Date of Service Date of Service: 10/06/22 Assessment & Plan Time Spent With Patient Time: Total time managing care of this patient today ____ minutes. Progress Note: Quality Stroke Does the patient have a stroke diagnosis?: No
--- NOTE | 2022-10-06 10:33 | P.CONNP_ITS ---
History of Present Illness Reason for Consult Consult date: 10/06/22 Chief Complaint Chief complaint: Hyponatremia History of Present Illness Narrative: 57-year-old presented to the hospital following a fall.?She reported that she was walking, felt slightly dizzy, had a fall and went tumbling down her steps, developing significant pain of her right shoulder.?she has been eating and drinking well, denies any weakness numbness or tingling.? No abdominal pain nausea or vomiting, no diarrhea constipation, no urinary symptoms and no lower extremity edema; On arrival to the ED patient hemodynamically stable but with a sodium of 125 which increased to 127 after receiving IV fluid in the ED. Shoulder x-ray shows mildly displaced distal clavicular fracture. chest CT show non displaced fracture through the lateral and of the right clavicle. She was admitted for further management. Nephrology has been consulted to assist in her clinical care Review of Systems Review of Systems Yes all other systems are reviewed and are negative PMFSH Past Medical History Medical History Anxiety Depression GERD (gastroesophageal reflux disease) HTN (hypertension) Microscopic hematuria Pelvic pain UTI (urinary tract infection) Family History Family History Mother Diabetes HTN (hypertension) Father HTN (hypertension) Surgical History Surgical History Hx of tubal ligation Social History Social History Household Members: Spouse Housing: Apartment Alcohol intake: current Alcohol intake frequency: holidays/special occasions only Patient Tobacco Use Status: Current everyday Tobacco user Cigarettes Per Day: 1 Years Smoked: 22 Substance Use Type: Marijuana Sexual orientation: Straight/Heterosexual Gender identity: Female Meds Allergies Allergy/AdvReac Type Severity Reaction Status Date / Time No Known Allergies Allergy Verified 10/05/22 20:23 [No Known Allergies*] Active Medications: Current Medications Acetaminophen (Acetaminophen 325 Mg Tablet) 650 mg PO Q6H PRN PRN Reason: Pain, Mild (Pain Scale 1-3) Last Admin: 10/06/22 07:47 Dose: 650 mg Atorvastatin Calcium (Atorvastatin Calcium 20 Mg Tablet) 20 mg PO BEDTIME [facility] Benztropine Mesylate (Benztropine Mesylate 1 Mg Tablet) 1 mg PO BID [facility] Last Admin: 10/06/22 10:17 Dose: 1 mg Clonazepam (Clonazepam 1 Mg Tablet) 1 mg PO BID PRN PRN Reason: Anxiety Docusate Sodium (Docusate Sodium 100 Mg Capsule) 100 mg PO DAILY PRN PRN Reason: Constipation Docusate Sodium (Docusate Sodium 100 Mg Capsule) 100 mg PO DAILY PRN PRN Reason: Constipation Enoxaparin Sodium (Enoxaparin Sodium 40 Mg/0.4 Ml Syringe) 40 mg SUBCUT Q24H [facility] Last Admin: 10/06/22 07:48 Dose: 40 mg Escitalopram Oxalate (Escitalopram Oxalate 10 Mg Tablet) 10 mg PO DAILY [facility] Last Admin: 10/06/22 10:18 Dose: 10 mg Hydroxyzine HCl (Hydroxyzine Hcl 10 Mg Tablet) 10 mg PO DAILY [facility] Nicotine (Nicotine 21 Mg Patch.Td24) 21 mg TRANSDERMA DAILY [facility] Omeprazole (Omeprazole 20 Mg Capsule.Dr) 20 mg PO DAILY@0630 [facility] Last Admin: 10/06/22 10:18 Dose: 20 mg Ondansetron HCl (Ondansetron Hcl 4 Mg/2 Ml Vial) 4 mg IVPUSH Q8H PRN PRN Reason: Nausea and Vomiting Oxcarbazepine (Oxcarbazepine 300 Mg Tablet) 600 mg PO TID [facility] Last Admin: 10/06/22 10:18 Dose: 600 mg Perphenazine (Perphenazine 4 Mg Tablet) 4 mg PO BID [facility] Pharmacy Consult (Consult Rx Perform Med Rec) 1 each MISCELLANE ONCE PRN PRN Reason: Consult order Sodium Chloride (0.9 % Sodium Chloride Flush 3 Ml Syringe) 3 ml IVFLUSH QSHIFT [facility] Last Admin: 10/06/22 07:37 Dose: Not Given Home Medications Medication Instructions Recorded Confirmed Last Taken Type benztropine 1 mg tablet 1 mg PO BID 05/21/20 10/06/22 05/21/20 History 1 citalopram 20 mg tablet 20 mg PO DAILY 05/21/20 10/06/22 05/21/20 History clonazepam 1 mg tablet 1 mg PO TID PRN Anxiety 05/21/20 10/06/22 05/21/20 History 1 omeprazole 20 mg capsule,delayed 20 mg PO DAILY 05/21/20 10/06/22 05/21/20 History release oxcarbazepine 600 mg tablet 600 mg PO TID 05/21/20 10/06/22 05/21/20 History 2 simvastatin 40 mg tablet 40 mg PO BEDTIME 05/21/20 10/06/22 05/20/20 History docusate sodium 100 mg capsule 100 mg PO DAILY PRN Constipation 10/06/22 10/06/22 Unknown History hydroxyzine HCl 10 mg tablet 10 mg PO DAILY 10/06/22 10/06/22 Unknown History nicotine 21 mg/24 hr daily 1 patch topical DAILY 10/06/22 10/06/22 Unknown History transdermal patch perphenazine 4 mg tablet 4 mg PO BID 10/06/22 10/06/22 Unknown History Physical Exam Vital Signs: Last Vital Signs Temp 96.9 F 10/06/22 10:27 Pulse 63 10/06/22 10:27 Resp 18 10/06/22 10:27 BP 144/102 H 10/06/22 10:27 Pulse Ox 100 10/06/22 10:27 O2 Del Method Room Air 10/06/22 10:27 BMI result Body Mass Index 25.9 Const General: no acute distress Eyes EOM: EOMs intact bilaterally Neck Neck: Yes supple Resp Auscultation: diminished lung sounds Cardio Rate: regular rate GI Palpation (GI): Soft to palpation Neuro General: moves all extremities Results Lab Results 10/06/22 06:46 10/06/22 06:46 Lab results: Chemistry 10/05/22 10/05/22 10/06/22 21:18 23:29 02:04 Sodium 125 L 127 L 128 L Potassium 3.6 3.9 4.0 Carbon Dioxide BUN 10 10 9 Creatinine 0.84 0.76 0.80 Calcium 9.4 8.8 D 8.9 10/06/22 06:46 Sodium 130 L Potassium 4.2 Carbon Dioxide 25 BUN 7 L Creatinine 0.82 Calcium 9.4 Hematology 10/05/22 10/06/22 21:18 06:46 WBC 8.3 6.6 Hgb 11.5 L 12.4 Plt Count 142 L 143 L Urinalysis 10/06/22 07:59 Urine Color Yellow Urine Appearance Clear Urine pH 7.0 Ur Specific [place] <= 1.005 Urine Protein Negative Urine Glucose (UA) Negative Urine Ketones Negative Urine Blood Small (1+) H Urine Nitrite Negative Ur Leukocyte Esterase Moderate (2+) H Urine RBC 11-20 H Urine WBC 21-50 H Ur Squamous Epith Cells 0-2 Hyaline Casts 0-2 Urine Studies 10/06/22 10/06/22 07:59 07:59 Urine Osmolality 203 L Urine Creatinine 31.61 Assessment and Plan (1) Acute hyponatremia: Status: Acute Time Spent With Patient Time: Hyponatremia due to excess ADH Has predilection for excess ADH Pain also increases ADH Serum sodium improving Euvolemic; Hemodynamics ok Serum potassium OK No need for tolvaptan/PO Urea/NaCl tablets Maintain fluid restriction for now Continue rest of current management Procedures Date of Service Date of Service: 10/06/22
[2022-10-06] MEDS: Perphenazine 4 MG TABLET PO ×2 (11:19→20:36)
[2022-10-06] MEDS: hydrOXYzine HCL 10 MG TABLET PO (11:19)
[2022-10-06] MEDS: Nicotine 21 MG PATCH.TD24 TRANSDERMA (11:19)
--- NOTE | 2022-10-06 13:06 | PM.EVENT ---
Event Note Date of Service: 10/06/22 Event Note: This patient is seen and examined earlier this morning hospital stay, seen and examined again c/o some discomfort with urine denies any abd pain says passing gases and bm's Physical exam and assessment and plan coordinated in h&p? note, Agree with the plan in addition: hyponatremia - sodium improved to 130 fluid restrictions will follow nephro. abnormal abdominal CT ? abd soft ,no pain surgery eval -no acute intervention-will add clear liquid diet Time Spent With Patient Time: Total time managing care of this patient today ____ minutes.
--- NOTE | 2022-10-06 13:09 | MHC.CM.PN ---
pt lives with has a vna that manages her lock box will get back to with name of agency [facility] will transport home
[2022-10-06] MEDS: 0.9 % Sodium Chloride Flush 3 ML SYRINGE IVFLUSH (15:59)
[2022-10-06 16:00] VITALS: BP 161/76; PULSE 65; RESP 16; TEMP 36.3; O2SAT 99
[2022-10-06 16:11] VITALS: BMI 25.9
[2022-10-06 16:51] LABS: Appearance Urine Clear; Color Urine Yellow; Glucose Urine UA Negative (Negative); Leukocyte Esterase Urine Moderate (2+) (Negative); Nitrite Urine Negative (Negative); PH 6.5 (5.0-9.0); UMIC TRIGGER UA YES; Urine Blood Moderate (2+) (Negative); Urine Ketones 15 mg/dL (Negative); Urine Protein Negative (Neg-Trace)
[2022-10-06 16:57] LABS: Bacteria Urine 4+ (None Seen); Hyaline Casts Urine 0-2 /LPF (0-2); Squamous Epithelial Cell Urine 0-2 /HPF (0-2); WBC Urine >50 /HPF (0-5)
[2022-10-06 20:00] VITALS: BP 161/76; PULSE 65; RESP 16; TEMP 36.3; O2SAT 99
[2022-10-06] MEDS: Atorvastatin Calcium 20 MG TABLET PO (20:36)
[2022-10-07 03:35] VITALS: BP 178/84; PULSE 67; RESP 16; TEMP 36; O2SAT 96
[2022-10-07] MEDS: Omeprazole 20 MG CAPSULE.DR PO (05:57)
[2022-10-07 06:18] LABS: Anion Gap 11 (12-20); Blood Urea Nitrogen 5 mg/dL (9-16); Calcium 9.4 mg/dL (8.4-10.2); Carbon Dioxide 26 mmol/L (22-29); Chloride 96 mmol/L (96-108); Creatinine Clr Calc Pharmacy 75.5; Estimated Glomerular Filt Rate > 60; Glucose Random 89 mg/dL (60-115); Sodium 129 mmol/L (135-145)
[2022-10-07 07:14] VITALS: BP 205/93; PULSE 78; RESP 18; TEMP 36.7; O2SAT 98
[2022-10-07] MEDS: Acetaminophen 325 MG TABLET 650 MG PO (07:29)
[2022-10-07] MEDS: 0.9 % Sodium Chloride Flush 3 ML SYRINGE IVFLUSH ×2 (07:29→14:50)
[2022-10-07] MEDS: Enoxaparin Sodium 40 MG/0.4 ML SYRINGE SUBCUT (07:36)
[2022-10-07] MEDS: Nicotine 21 MG PATCH.TD24 TRANSDERMA (07:37)
[2022-10-07] MEDS: OXcarbazepine 300 MG TABLET 600 MG PO ×3 (07:37→20:03)
[2022-10-07] MEDS: Escitalopram Oxalate 10 MG TABLET PO (07:37)
[2022-10-07] MEDS: hydrOXYzine HCL 10 MG TABLET PO (07:37)
[2022-10-07] MEDS: Perphenazine 4 MG TABLET PO ×2 (07:37→20:02)
[2022-10-07] MEDS: Benztropine Mesylate 1 MG TABLET PO ×2 (07:38→20:02)
[2022-10-07] MEDS: amLODIPine Besylate 10 MG TABLET PO (07:46)
[2022-10-07 08:46] VITALS: BP 180/79
[2022-10-07] MEDS: traZODone HCL 25 MG HALFTAB 12.5 MG PO (10:23)
--- NOTE | 2022-10-07 12:14 | P.PNNP_ITS ---
Subjective Subjective Date of Service: 10/07/22 Interval history: Events noted; All recent data reviewed Physical Exam Vital Signs: Vital Signs: Last Vital Signs Temp 98.1 F 10/07/22 07:14 Pulse 78 10/07/22 07:14 Resp 18 10/07/22 07:14 BP 180/79 H 10/07/22 08:46 Pulse Ox 98 10/07/22 07:14 O2 Del Method Room Air 10/07/22 07:14 BMI result Body Mass Index 25.9 Const: General: no acute distress Eyes: EOM: EOMs intact bilaterally Resp: Auscultation: diminished lung sounds Cardio: Rate: regular rate GI: Palpation (GI): Soft to palpation Neuro: General: moves all extremities Objective Data Labs 10/06/22 06:46 10/07/22 05:02 Labs: Laboratory Results - last 24 hr 10/06/22 10/07/22 16:33 05:02 Sodium 129 L Potassium 4.0 Chloride 96 Carbon Dioxide 26 Anion Gap 11 L BUN 5 L Creatinine 0.77 Estim Creat Clear Calc 75.5 Estimated GFR > 60 Random Glucose 89 Calcium 9.4 Urine Color Yellow Urine Appearance Clear Urine pH 6.5 Ur Specific [place] 1.010 Urine Protein Negative Urine Glucose (UA) Negative Urine Ketones 15 Urine Blood Moderate (2+) H Urine Nitrite Negative Ur Leukocyte Esterase Moderate (2+) H Urine RBC 11-20 H Urine WBC >50 H Ur Squamous Epith Cells 0-2 Urine Bacteria 4+ Hyaline Casts 0-2 Microbiology Microbiology Results: Microbiology 10/06/22 Unknown Urine clean catch - Urine moore top Urine Culture - Preliminary Enterococcus/Streptococcus sp Procedures Date of Service Date of Service: 10/07/22 Assessment & Plan Assessment and plan (1) Acute hyponatremia: Status: Acute Assessment and Plan: Hyponatremia - likely multifactorial Has predilection for excess ADH Pain also increases ADH Serum sodium stable Euvolemic; Hemodynamics ok Serum potassium OK No need for tolvaptan/PO Urea/NaCl tablets Maintain fluid restriction for now Continue rest of current management Progress Note: Quality Stroke Does the patient have a stroke diagnosis?: No
--- NOTE | 2022-10-07 12:56 | HO.PM.IMPN ---
Subjective Subjective Date of Service: 10/07/22 Interval History: htn uncontrolled, hyponatremia Review of Systems denies any abd pain or nausea or vomitin Physical Exam Vital Signs: Vital Signs: Last Vital Signs Temp 98.1 F 10/07/22 07:14 Pulse 78 10/07/22 07:14 Resp 18 10/07/22 07:14 BP 180/79 H 10/07/22 08:46 Pulse Ox 98 10/07/22 07:14 O2 Del Method Room Air 10/07/22 07:14 BMI result Body Mass Index 25.9 Appearance: Alert.? Oriented X3.? not in distress.? cvs: rrr, [id number]. res: clear to auscultation ,no rhonchii or wheezing abd: no rebound or guarding ,nt, bs present. ext pulses present , no cyanosis. neuro: axo3 , nonfocal. Objective Data Active Medications Acetaminophen (Acetaminophen 325 Mg Tablet) 650 mg PO Q6H PRN PRN Reason: Pain, Mild (Pain Scale 1-3) Last Admin: 10/07/22 07:29 Dose: 650 mg Documented By: KATIE Amlodipine Besylate (Amlodipine Besylate 10 Mg Tablet) 10 mg PO DAILY [facility]; Protocol Last Admin: 10/07/22 07:46 Dose: 10 mg Documented By: KATIE Atorvastatin Calcium (Atorvastatin Calcium 20 Mg Tablet) 20 mg PO BEDTIME [facility] Last Admin: 10/06/22 20:36 Dose: 20 mg Documented By: DAVID Benztropine Mesylate (Benztropine Mesylate 1 Mg Tablet) 1 mg PO BID [facility] Last Admin: 10/07/22 07:38 Dose: 1 mg Documented By: KATIE Clonazepam (Clonazepam 1 Mg Tablet) 1 mg PO BID PRN PRN Reason: Anxiety Docusate Sodium (Docusate Sodium 100 Mg Capsule) 100 mg PO DAILY PRN PRN Reason: Constipation Docusate Sodium (Docusate Sodium 100 Mg Capsule) 100 mg PO DAILY PRN PRN Reason: Constipation Enoxaparin Sodium (Enoxaparin Sodium 40 Mg/0.4 Ml Syringe) 40 mg SUBCUT Q24H [facility] Last Admin: 10/07/22 07:36 Dose: 40 mg Documented By: KATIE Escitalopram Oxalate (Escitalopram Oxalate 10 Mg Tablet) 10 mg PO DAILY [facility] Last Admin: 10/07/22 07:37 Dose: 10 mg Documented By: KATIE Hydroxyzine HCl (Hydroxyzine Hcl 10 Mg Tablet) 10 mg PO DAILY [facility] Last Admin: 10/07/22 07:37 Dose: 10 mg Documented By: KATIE Nicotine (Nicotine 21 Mg Patch.Td24) 21 mg TRANSDERMA DAILY [facility] Last Admin: 10/07/22 07:37 Dose: 21 mg Documented By: KATIE Omeprazole (Omeprazole 20 Mg Capsule.Dr) 20 mg PO DAILY@0630 [facility] Last Admin: 10/07/22 05:57 Dose: 20 mg Documented By: DAVID Ondansetron HCl (Ondansetron Hcl 4 Mg/2 Ml Vial) 4 mg IVPUSH Q8H PRN PRN Reason: Nausea and Vomiting Oxcarbazepine (Oxcarbazepine 300 Mg Tablet) 600 mg PO TID [facility] Last Admin: 10/07/22 07:37 Dose: 600 mg Documented By: KATIE Perphenazine (Perphenazine 4 Mg Tablet) 4 mg PO BID [facility] Last Admin: 10/07/22 07:37 Dose: 4 mg Documented By: KATIE Pharmacy Consult (Consult Rx Perform Med Rec) 1 each MISCELLANE ONCE PRN PRN Reason: Consult order Sodium Chloride (0.9 % Sodium Chloride Flush 3 Ml Syringe) 3 ml IVFLUSH QSHIFT [facility] Last Admin: 10/07/22 07:29 Dose: 3 ml Documented By: KATIE Labs 10/06/22 06:46 10/07/22 05:02 Labs: Laboratory Results - last 24 hr 10/06/22 10/07/22 16:33 05:02 Anion Gap 11 L Estim Creat Clear Calc 75.5 Estimated GFR > 60 Random Glucose 89 Calcium 9.4 Urine Color Yellow Urine Appearance Clear Urine pH 6.5 Ur Specific [place] 1.010 Urine Protein Negative Urine Glucose (UA) Negative Urine Ketones 15 Urine Blood Moderate (2+) H Urine Nitrite Negative Ur Leukocyte Esterase Moderate (2+) H Urine RBC 11-20 H Urine WBC >50 H Ur Squamous Epith Cells 0-2 Urine Bacteria 4+ Hyaline Casts 0-2 Microbiology Microbiology Results: Microbiology 10/06/22 Unknown Urine Culture - Preliminary Urine clean catch - Urine moore top Enterococcus/Streptococcus sp Assessment and Plan (1) Abnormal abdominal CT scan: Status: Acute (2) Acute hyponatremia: Status: Acute Plan 57-year-old female with past medical history of hypertension comes into the hospital after a fall found to have a clavicle fracture acute hyponatremia Hyponatremia -seen by nephro- likely multifactorial. sodium 129 Has predilection for excess ADH,Pain also increases ADH Serum sodium stable,Euvolemic Serum potassium OK Maintain fluid restriction for now No need for tolvaptan/PO Urea/NaCl tablets clavicle fracture - placed in a sling - pain control abnormal abdominal CT showing possible developing volvulus abdomen soft, mildly tender, acute abdomen general surgery consulted-no acute intervention uncontrolled hypertension: sbp on 200's range not appear to be on antihypertensives- added amlodipine . renal dupplex for htn workup depression/anxiety:Continue mood stabilizers. DVT prophylaxis:? Lovenox inpatient need - acute hyponatremia , uncontrolled htn -need renal function and electrolyte monitering ,fluid restritcions . also need bp and tele monitering ,as well as htn workup. Time Spent With Patient Time: Total time managing care of this patient today ____ minutes. Quality Stroke Does the patient have a stroke diagnosis?: No VTE Prior VTE?: No VTE Risk Level:: Medical - moderate - high VTE Device Contraindication: Treatment Not Indicated VTE Drug Contraindication: N/A - Med Ordered
--- NOTE | 2022-10-07 13:59 | PHA.PROG ---
Admission Date/Time: October 06, 2022 01:29 Indication: OTHER Weight in k.3 kg Adjusted body weight in K KG [place] body weight in Kg: Obesity Dosing Indication % IBW:26.53% OVER IBW Serum Creatinine - Last 168 Hours 10/05/22 10/05/22 10/06/22 21:18 23:29 02:04 Creatinine 0.84 0.76 0.80 10/06/22 10/07/22 06:46 05:02 Creatinine 0.82 0.77 Estimated CrCl and GFR - Last 168 Hours 10/05/22 10/05/22 10/06/22 21:18 23:29 02:04 Estim Creat Clear Calc 69.2 76.5 72.7 Estimated GFR > 60 > 60 > 60 10/06/22 10/07/22 06:46 05:02 Estim Creat Clear Calc 70.9 75.5 Estimated GFR > 60 > 60 Vancomycin Loading Dose: 1750 MG Current Vancomycin Dosing Regimen:1 GRAM Q12 HOURS Vancomycin Monitoring using AUC goal of 400 - 600 range with trough as surrogate marker:SUGGESTED AUC OF 559 Date and Time for next Vancomycin Level to be drawn:WILL CHECK LEVEL 10/09/22 AT 0200 Pharmacist Comments on Vancomycin Plan: Vancomycin dosing will take advantage of [employer] as a clinical decision support tool that uses Bayesian modeling to calculate individual patient's pharmacokinetic parameters and forecast the patient's drug concentration time course with the target goal AUC 24 range of 400 - 600 mg/L/hr.
[2022-10-07] MEDS: polyethylene glycoL 3350 17 GM POWD.PACK PO (14:49)
[2022-10-07] MEDS: vancomycin HCL 1,000 MG, vancomycin HCL 750 MG in 0.9 % Sodium Chloride 500 ML 267.5 MG IV (14:49)
[2022-10-07 16:00] VITALS: BP 173/79; PULSE 70; RESP 18; TEMP 36.5; O2SAT 97
[2022-10-07 19:29] VITALS: BP 164/82; PULSE 75; RESP 14; TEMP 36.1; O2SAT 98
[2022-10-07] MEDS: Atorvastatin Calcium 20 MG TABLET PO (20:02)
[2022-10-08 03:09] VITALS: BP 170/75; PULSE 67; RESP 18; TEMP 36.6; O2SAT 100
[2022-10-08] MEDS: vancomycin HCL 1,000 MG in 0.9 % Sodium Chloride 250 ML 270 MG IV (04:00)
[2022-10-08] MEDS: Omeprazole 20 MG CAPSULE.DR PO (05:42)
[2022-10-08 06:10] LABS: Creatinine Clr Calc Pharmacy 79.6; Estimated Glomerular Filt Rate > 60
[2022-10-08 07:24] VITALS: BP 180/80; PULSE 86; RESP 18; TEMP 36.6; O2SAT 99
[2022-10-08 08:32] LABS: Sodium 129 mmol/L (135-145)
[2022-10-08] MEDS: hydrOXYzine HCL 10 MG TABLET PO (08:33)
[2022-10-08] MEDS: Enoxaparin Sodium 40 MG/0.4 ML SYRINGE SUBCUT (08:33)
[2022-10-08] MEDS: amLODIPine Besylate 10 MG TABLET PO (08:33)
[2022-10-08] MEDS: Benztropine Mesylate 1 MG TABLET PO ×2 (08:33→21:32)
[2022-10-08] MEDS: polyethylene glycoL 3350 17 GM POWD.PACK PO (08:33)
[2022-10-08] MEDS: lisinopriL 5 MG TABLET PO (08:33)
[2022-10-08] MEDS: Perphenazine 4 MG TABLET PO ×2 (08:33→21:32)
[2022-10-08] MEDS: Escitalopram Oxalate 10 MG TABLET PO (08:33)
[2022-10-08] MEDS: OXcarbazepine 300 MG TABLET 600 MG PO ×3 (08:33→21:33)
[2022-10-08] MEDS: Nicotine 21 MG PATCH.TD24 TRANSDERMA (08:34)
[2022-10-08] MEDS: 0.9 % Sodium Chloride Flush 3 ML SYRINGE IVFLUSH ×3 (08:34→21:33)
[2022-10-08] MEDS: clonazePAM 1 MG TABLET PO ×2 (08:46→21:32)
[2022-10-08 11:14] VITALS: BP 180/80; PULSE 86; O2SAT 99
--- NOTE | 2022-10-08 12:20 | PM.PNNEP ---
Subjective Subjective Date of Service: 10/08/22 Interval history: Events noted. All recent data reviewed Physical Exam Vital Signs: Vital Signs: Last Vital Signs Temp 97.9 F 10/08/22 07:24 Pulse 86 10/08/22 11:14 Resp 18 10/08/22 07:24 BP 180/80 H 10/08/22 11:14 Pulse Ox 99 10/08/22 11:14 O2 Del Method Room Air 10/08/22 07:24 BMI result Body Mass Index 25.9 Const: General: no acute distress Eyes: EOM: EOMs intact bilaterally Resp: Auscultation: diminished lung sounds Cardio: Rate: regular rate GI: Palpation (GI): Soft to palpation Neuro: General: moves all extremities Objective Data Labs 10/06/22 06:46 10/08/22 05:13 Labs: Laboratory Results - last 24 hr 10/08/22 05:13 Sodium 129 L Creatinine 0.73 Estim Creat Clear Calc 79.6 Estimated GFR > 60 Microbiology Microbiology Results: Microbiology 10/06/22 Unknown Urine clean catch - Urine moore top Urine Culture - Final Enterococcus faecalis Procedures Date of Service Date of Service: 10/08/22 Assessment & Plan Assessment and plan (1) Acute hyponatremia: Status: Acute Assessment and Plan: Hyponatremia - likely multifactorial Has predilection for excess ADH Pain also increases ADH Serum sodium stable Euvolemic; Hemodynamics ok Serum potassium OK No need for tolvaptan/PO Urea/NaCl tablets Maintain fluid restriction for now Needs better BP control- can increase ACEI Continue rest of current management Progress Note: Quality Stroke Does the patient have a stroke diagnosis?: No
[2022-10-08 13:34] VITALS: BP 146/70; PULSE 86
--- NOTE | 2022-10-08 13:34 | W.PM.IDCN ---
History of Present Illness Data of Consult Service Date: 10/07/22 Requesting physician: Meryl Graham Primary Care Provider: Adam Warren MD HPI Reason for consult: dysuria,enterococcus urine She presents to hospital with dizziness and had fallen down stairs due to dizziness. She has no fever or chills or leukocytosis. She had developed dysuria day 1 hospital admission and had urine culture done showed enterococcus and then started Vancomycin which she is taking now. Review of Systems Review of Systems: Yes all other systems are reviewed and are negative [facility] Past Medical History Medical History (Updated 10/08/22 @ 13:37 by Sowmya Srivastava MD) Anxiety Depression Enterococcus UTI GERD (gastroesophageal reflux disease) HTN (hypertension) Microscopic hematuria Pelvic pain UTI (urinary tract infection) Family History Family History Mother Diabetes HTN (hypertension) Father HTN (hypertension) Family history: reviewed and not pertinent Surgical History Surgical History Hx of tubal ligation Social History Social History Household Members: Spouse Housing: Apartment Do you presently have visiting nurse or other home services: No Alcohol intake: current Alcohol intake frequency: holidays/special occasions only Patient Tobacco Use Status: Current everyday Tobacco user Tobacco use type: Cigarette Cigarettes Per Day: 1 Years Smoked: 25 e-Cigarette/Vaping Use: Currently Using Substance Use Type: Marijuana service: No Sexual orientation: Straight/Heterosexual Gender identity: Female Meds Allergies Allergy/AdvReac Type Severity Reaction Status Date / Time No Known Allergies Allergy Verified 10/05/22 20:23 [No Known Allergies*] Active Medications: Current Medications Acetaminophen (Acetaminophen 325 Mg Tablet) 650 mg PO Q6H PRN PRN Reason: Pain, Mild (Pain Scale 1-3) Last Admin: 10/07/22 07:29 Dose: 650 mg Amlodipine Besylate (Amlodipine Besylate 10 Mg Tablet) 10 mg PO DAILY [facility]; Protocol Last Admin: 10/08/22 08:33 Dose: 10 mg Atorvastatin Calcium (Atorvastatin Calcium 20 Mg Tablet) 20 mg PO BEDTIME [facility] Last Admin: 10/07/22 20:02 Dose: 20 mg Benztropine Mesylate (Benztropine Mesylate 1 Mg Tablet) 1 mg PO BID [facility] Last Admin: 10/08/22 08:33 Dose: 1 mg Clonazepam (Clonazepam 1 Mg Tablet) 1 mg PO BID PRN PRN Reason: Anxiety Last Admin: 10/08/22 08:46 Dose: 1 mg Docusate Sodium (Docusate Sodium 100 Mg Capsule) 100 mg PO DAILY PRN PRN Reason: Constipation Docusate Sodium (Docusate Sodium 100 Mg Capsule) 100 mg PO DAILY PRN PRN Reason: Constipation Enoxaparin Sodium (Enoxaparin Sodium 40 Mg/0.4 Ml Syringe) 40 mg SUBCUT Q24H [facility] Last Admin: 10/08/22 08:33 Dose: 40 mg Escitalopram Oxalate (Escitalopram Oxalate 10 Mg Tablet) 10 mg PO DAILY [facility] Last Admin: 10/08/22 08:33 Dose: 10 mg Hydroxyzine HCl (Hydroxyzine Hcl 10 Mg Tablet) 10 mg PO DAILY [facility] Last Admin: 10/08/22 08:33 Dose: 10 mg Vancomycin HCl 1,000 mg/ (Sodium Chloride) 270 mls @ 270 mls/hr IV Q12H [facility] Last Infusion: 10/08/22 05:38 Dose: Infused Lisinopril (Lisinopril 5 Mg Tablet) 5 mg PO DAILY [facility]; Protocol Last Admin: 10/08/22 08:33 Dose: 5 mg Nicotine (Nicotine 21 Mg Patch.Td24) 21 mg TRANSDERMA DAILY [facility] Last Admin: 10/08/22 08:34 Dose: 21 mg Omeprazole (Omeprazole 20 Mg Capsule.Dr) 20 mg PO DAILY@0630 [facility] Last Admin: 10/08/22 05:42 Dose: 20 mg Ondansetron HCl (Ondansetron Hcl 4 Mg/2 Ml Vial) 4 mg IVPUSH Q8H PRN PRN Reason: Nausea and Vomiting Oxcarbazepine (Oxcarbazepine 300 Mg Tablet) 600 mg PO TID [facility] Last Admin: 10/08/22 08:33 Dose: 600 mg Perphenazine (Perphenazine 4 Mg Tablet) 4 mg PO BID [facility] Last Admin: 10/08/22 08:33 Dose: 4 mg Pharmacy Consult (Consult Rx Perform Med Rec) 1 each MISCELLANE ONCE PRN PRN Reason: Consult order Pharmacy Consult (Consult Rx Vancomycin Dosing) 1 each MISCELLANE DAILY PRN PRN Reason: Consult order Polyethylene Glycol (Polyethylene Glycol 3350 17 Gm Powd.Pack) 17 gm PO DAILY [facility] Last Admin: 10/08/22 08:33 Dose: 17 gm Sodium Chloride (0.9 % Sodium Chloride Flush 3 Ml Syringe) 3 ml IVFLUSH QSHIFT [facility] Last Admin: 10/08/22 08:34 Dose: 3 ml Home Medications Medication Instructions Recorded Confirmed Last Taken Type benztropine 1 mg tablet 1 mg PO BID 05/21/20 10/06/22 05/21/20 History 1 citalopram 20 mg tablet 20 mg PO DAILY 05/21/20 10/06/22 05/21/20 History clonazepam 1 mg tablet 1 mg PO TID PRN Anxiety 05/21/20 10/06/22 05/21/20 History 1 omeprazole 20 mg capsule,delayed 20 mg PO DAILY 05/21/20 10/06/22 05/21/20 History release oxcarbazepine 600 mg tablet 600 mg PO TID 05/21/20 10/06/22 05/21/20 History 2 simvastatin 40 mg tablet 40 mg PO BEDTIME 05/21/20 10/06/22 05/20/20 History docusate sodium 100 mg capsule 100 mg PO DAILY PRN Constipation 10/06/22 10/06/22 Unknown History hydroxyzine HCl 10 mg tablet 10 mg PO DAILY 10/06/22 10/06/22 Unknown History nicotine 21 mg/24 hr daily 1 patch topical DAILY 10/06/22 10/06/22 Unknown History transdermal patch perphenazine 4 mg tablet 4 mg PO BID 10/06/22 10/06/22 Unknown History Physical Exam Vital Signs: Vital Signs: Last Vital Signs Temp 97.9 F 10/08/22 07:24 Pulse 86 10/08/22 11:14 Resp 18 10/08/22 07:24 BP 180/80 H 10/08/22 11:14 Pulse Ox 99 10/08/22 11:14 O2 Del Method Room Air 10/08/22 07:24 BMI result Body Mass Index 25.9 Const: General: cooperative HEENT: Head: Yes normal to inspection Face and sinus: Yes normal facial exam Mouth: Normal oral and palatal mucosa present Teeth and gingiva: dentition normal Eyes: General: appearance normal, both eyes and all related structures Pupils: Equal, round and reactive pupils present Resp: Effort & Inspection: normal respiratory effort Cardio: Rate: regular rate Rhythm: regular rhythm GI: Palpation (GI): Soft to palpation and nontender : General: Yes no CVA tenderness Back/Spine/Pelvis: Back: no CVA tenderness Skin: General skin exam: no rashes or lesions noted Neuro: General: moves all extremities Cranial nerves: Yes Equal, round and reactive pupils present Extrem: General: Yes normal to inspection Psych: Appearance: grossly normal Results Labs 10/06/22 06:46 10/08/22 05:13 Labs: BMP 10/08/22 05:13 Sodium 129 L Creatinine 0.73 Microbiology Microbiology Results: Microbiology 10/06/22 Unknown Urine clean catch - Urine moore top Urine Culture - Final Enterococcus faecalis Assessment and Plan (1) Enterococcus UTI: Status: Acute She has dysuria and urine culture shows enterococcus. She has no signs of sepsis or urinary obstruction or bacteremia. Plan Change to Amoxicillin 500 mg po tid as long as taking po well for seven days. Time Spent With Patient Time: Total time managing care of this patient today ____ minutes.
--- NOTE | 2022-10-08 14:21 | HO.PM.IMPN ---
Subjective Subjective Date of Service: 10/16/22 Interval History: htn uncontrolled, hyponatremia,Enterococus faecium Uti Review of Systems seems better ,denies any chest pain or sob Physical Exam Vital Signs: Vital Signs: Last Vital Signs Temp 97.9 F 10/08/22 07:24 Pulse 86 10/08/22 13:34 Resp 18 10/08/22 07:24 BP 146/70 H 10/08/22 13:34 Pulse Ox 99 10/08/22 11:14 O2 Del Method Room Air 10/08/22 07:24 BMI result Body Mass Index 25.9 Appearance: Alert.? Oriented X3.? not in distress.? cvs: rrr, [id number]. res: clear to auscultation ,no rhonchii or wheezing abd: no rebound or guarding ,nt, bs present. ext pulses present , no cyanosis. neuro: axo3 , nonfocal. Objective Data Active Medications Acetaminophen (Acetaminophen 325 Mg Tablet) 650 mg PO Q6H PRN PRN Reason: Pain, Mild (Pain Scale 1-3) Last Admin: 10/07/22 07:29 Dose: 650 mg Documented By: KATIE Amlodipine Besylate (Amlodipine Besylate 10 Mg Tablet) 10 mg PO DAILY [facility]; Protocol Last Admin: 10/08/22 08:33 Dose: 10 mg Documented By: ZANDRA Amoxicillin/Clavulanate Potassium (Amoxicillin/Potassium Clav 500 Mg Tablet) 500 mg PO Q8H [facility] Atorvastatin Calcium (Atorvastatin Calcium 20 Mg Tablet) 20 mg PO BEDTIME [facility] Last Admin: 10/07/22 20:02 Dose: 20 mg Documented By: DAVID Benztropine Mesylate (Benztropine Mesylate 1 Mg Tablet) 1 mg PO BID [facility] Last Admin: 10/08/22 08:33 Dose: 1 mg Documented By: ZANDRA Clonazepam (Clonazepam 1 Mg Tablet) 1 mg PO BID PRN PRN Reason: Anxiety Last Admin: 10/08/22 08:46 Dose: 1 mg Documented By: ZANDRA Docusate Sodium (Docusate Sodium 100 Mg Capsule) 100 mg PO DAILY PRN PRN Reason: Constipation Docusate Sodium (Docusate Sodium 100 Mg Capsule) 100 mg PO DAILY PRN PRN Reason: Constipation Enoxaparin Sodium (Enoxaparin Sodium 40 Mg/0.4 Ml Syringe) 40 mg SUBCUT Q24H [facility] Last Admin: 10/08/22 08:33 Dose: 40 mg Documented By: ZANDRA Escitalopram Oxalate (Escitalopram Oxalate 10 Mg Tablet) 10 mg PO DAILY [facility] Last Admin: 10/08/22 08:33 Dose: 10 mg Documented By: ZANDRA Hydroxyzine HCl (Hydroxyzine Hcl 10 Mg Tablet) 10 mg PO DAILY [facility] Last Admin: 10/08/22 08:33 Dose: 10 mg Documented By: ZANDRA Lisinopril (Lisinopril 5 Mg Tablet) 5 mg PO DAILY [facility]; Protocol Last Admin: 10/08/22 08:33 Dose: 5 mg Documented By: ZANDRA Nicotine (Nicotine 21 Mg Patch.Td24) 21 mg TRANSDERMA DAILY [facility] Last Admin: 10/08/22 08:34 Dose: 21 mg Documented By: ZANDRA Omeprazole (Omeprazole 20 Mg Capsule.Dr) 20 mg PO DAILY@0630 [facility] Last Admin: 10/08/22 05:42 Dose: 20 mg Documented By: DAVID Ondansetron HCl (Ondansetron Hcl 4 Mg/2 Ml Vial) 4 mg IVPUSH Q8H PRN PRN Reason: Nausea and Vomiting Oxcarbazepine (Oxcarbazepine 300 Mg Tablet) 600 mg PO TID [facility] Last Admin: 10/08/22 14:17 Dose: 600 mg Documented By: ZANDRA Perphenazine (Perphenazine 4 Mg Tablet) 4 mg PO BID [facility] Last Admin: 10/08/22 08:33 Dose: 4 mg Documented By: ZANDRA Pharmacy Consult (Consult Rx Perform Med Rec) 1 each MISCELLANE ONCE PRN PRN Reason: Consult order Polyethylene Glycol (Polyethylene Glycol 3350 17 Gm Powd.Pack) 17 gm PO DAILY [facility] Last Admin: 10/08/22 08:33 Dose: 17 gm Documented By: ZANDRA Sodium Chloride (0.9 % Sodium Chloride Flush 3 Ml Syringe) 3 ml IVFLUSH QSHIFT [facility] Last Admin: 10/08/22 08:34 Dose: 3 ml Documented By: ZANDRA Labs 10/06/22 06:46 10/08/22 05:13 Labs: Laboratory Results - last 24 hr 10/08/22 05:13 Estim Creat Clear Calc 79.6 Estimated GFR > 60 Microbiology Microbiology Results: Microbiology 10/06/22 Unknown Urine Culture - Final Urine clean catch - Urine moore top Enterococcus faecalis Assessment and Plan (1) Abnormal abdominal CT scan: Status: Acute (2) Acute hyponatremia: Status: Acute Plan 57-year-old female with past medical history of hypertension comes into the hospital after a fall found to have a clavicle fracture acute hyponatremia Hyponatremia -seen by nephro- likely multifactorial. sodium 129 Has predilection for excess ADH,Pain also increases ADH Serum sodium stable,Euvolemic Serum potassium OK Maintain fluid restriction for now No need for tolvaptan/PO Urea/NaCl tablets clavicle fracture - placed in a sling - pain control abnormal abdominal CT showing possible developing volvulus abdomen soft, mildly tender, acute abdomen general surgery consulted-no acute intervention uncontrolled hypertension: renal dupplex for htn workup results -need to reviewed by nephro. not appear to be on antihypertensives- added amlodipine . depression/anxiety:Continue mood stabilizers. Enterococus faecium Uti: seen by id-added amox for 7 days (started on 10/08/22) DVT prophylaxis:? Lovenox Pt -recomended rehab inpatient need - awaiting str Time Spent With Patient Time: Total time managing care of this patient today ____ minutes. Quality Stroke Does the patient have a stroke diagnosis?: No VTE Prior VTE?: No VTE Risk Level:: Medical - moderate - high VTE Device Contraindication: Treatment Not Indicated VTE Drug Contraindication: N/A - Med Ordered
--- NOTE | 2022-10-08 15:06 | MHC.CM.PN ---
pt will need str pt is agreeable referals made
[2022-10-08 15:24] VITALS: BP 160/76; PULSE 88; RESP 18; TEMP 36.9; O2SAT 98
[2022-10-08] MEDS: Amoxicillin/Potassium Clav 500 MG TABLET PO ×2 (16:00→21:33)
[2022-10-08 20:00] VITALS: BP 140/81; PULSE 78; RESP 18; TEMP 36.1; O2SAT 99
[2022-10-08] MEDS: Atorvastatin Calcium 20 MG TABLET PO (21:33)
[2022-10-08] MEDS: Acetaminophen 325 MG TABLET 650 MG PO (21:37)
[2022-10-09 02:15] LABS: Vancomycin Trough 4.7 mcg/mL (10.0-20.0)
[2022-10-09 03:32] VITALS: BP 137/71; PULSE 75; RESP 18; TEMP 36; O2SAT 99
[2022-10-09] MEDS: Amoxicillin/Potassium Clav 500 MG TABLET PO (06:09)
[2022-10-09] MEDS: Omeprazole 20 MG CAPSULE.DR PO (06:09)
[2022-10-09 06:20] LABS: Creatinine Clr Calc Pharmacy 78.5; Estimated Glomerular Filt Rate > 60
[2022-10-09 07:38] VITALS: BP 192/90; PULSE 99; RESP 18; O2SAT 99
[2022-10-09] MEDS: Nicotine 21 MG PATCH.TD24 TRANSDERMA (08:52)
[2022-10-09] MEDS: Benztropine Mesylate 1 MG TABLET PO (08:53)
[2022-10-09] MEDS: hydrOXYzine HCL 10 MG TABLET PO (08:53)
[2022-10-09] MEDS: Enoxaparin Sodium 40 MG/0.4 ML SYRINGE SUBCUT (08:53)
[2022-10-09] MEDS: Perphenazine 4 MG TABLET PO (08:53)
[2022-10-09] MEDS: OXcarbazepine 300 MG TABLET 600 MG PO (08:54)
[2022-10-09] MEDS: amLODIPine Besylate 10 MG TABLET PO (08:54)
[2022-10-09] MEDS: Escitalopram Oxalate 10 MG TABLET PO (08:54)
[2022-10-09] MEDS: 0.9 % Sodium Chloride Flush 3 ML SYRINGE IVFLUSH (08:54)
[2022-10-09] MEDS: lisinopriL 5 MG TABLET PO (08:54)
[2022-10-09] MEDS: clonazePAM 1 MG TABLET PO (09:07)
[2022-10-09 10:25] VITALS: PULSE 99; O2SAT 99
--- NOTE | 2022-10-09 10:38 | MHC.CM.PN ---
Addendum entered by Yaima Nolasco 10/09/22 13:50: PTS NOW BEDSIDE AND ASSISTING HER WITH DRESSING HE CONFIRMS HE AND SON WILL BE PRESENT AT HOME TO HELP PT PRN PT REPORTS BEING ANXIOUS TO GO HOME PT WILL DC HOME WITH RESUMPTION OF [facility] WITH THE ADDITION OF PT SERVICES [facility] NOTIFIED VIA [employer] Addendum entered by Yaima Nolasco 10/09/22 11:16: CM HAS ATTEMPTED TO REACH PTS X 3, PHONE CONTINUES TO GO DIRECTLY TO Addendum entered by Yaima Nolasco 10/09/22 10:47: PER PCP OFFICE, PTS LAST NOTES INDICATE SHE IS ACTIVE WITH [facility] Addendum entered by Yaima Nolasco 10/09/22 10:44: CM ALSO ASKED PT ABOUT HER VNA SERVICES PT DOES NOT KNOW WHO PROVIDES HER SERVICES SHE INITIALLY SAID SHE DOES NOT HAVE VNA, BUT THEN CONFIRMS SHE DOES HAVE A LOCK BOX AND A RN THAT GIVES HER MEDS DAILY CM WILL CONTACT PCP OFFICE FOR INFORMATION Original Note: CM AND PT 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 CM WILL CONTINUE TO TRY TO REACH PTS PT DOES NOT HAVE A HOUSE WATK[employer], AND CM WILL CONFIRM SOMEONE WILL BE PRESENT TO ASSIST HER
[2022-10-09] MEDS: Amoxicillin 500 MG CAPSULE PO (11:27)
[2022-10-09 11:28] VITALS: BP 168/80
--- NOTE | 2022-10-09 13:31 | HO.PM.IMPN ---
Subjective Subjective Date of Service: 10/09/22 Interval History: wants to go home Physical Exam Vital Signs: Vital Signs: Last Vital Signs Temp 96.8 F 10/09/22 03:32 Pulse 99 10/09/22 10:25 Resp 18 10/09/22 07:38 BP 168/80 H 10/09/22 11:28 Pulse Ox 99 10/09/22 10:25 O2 Del Method Room Air 10/09/22 07:38 BMI result Body Mass Index 25.9 General: AO X 3, no acute distress Resp: CTA bilateral, no accessory muscles used CVS: S1,S2,RRR GI: soft, non tender, non distended Neuro: motor grossly intact, alert Psych: appropriate affect, appropriate insight Objective Data Active Medications Acetaminophen (Acetaminophen 325 Mg Tablet) 650 mg PO Q6H PRN PRN Reason: Pain, Mild (Pain Scale 1-3) Last Admin: 10/08/22 21:37 Dose: 650 mg Documented By: RAVINDRA Amlodipine Besylate (Amlodipine Besylate 10 Mg Tablet) 10 mg PO DAILY [facility]; Protocol Last Admin: 10/09/22 08:54 Dose: 10 mg Documented By: ZANDRA Amoxicillin (Amoxicillin 500 Mg Capsule) 500 mg PO Q8H [facility] Last Admin: 10/09/22 11:27 Dose: 500 mg Documented By: ZANDRA Atorvastatin Calcium (Atorvastatin Calcium 20 Mg Tablet) 20 mg PO BEDTIME [facility] Last Admin: 10/08/22 21:33 Dose: 20 mg Documented By: RAVINDRA Benztropine Mesylate (Benztropine Mesylate 1 Mg Tablet) 1 mg PO BID [facility] Last Admin: 10/09/22 08:53 Dose: 1 mg Documented By: ZANDRA Clonazepam (Clonazepam 1 Mg Tablet) 1 mg PO BID PRN PRN Reason: Anxiety Last Admin: 10/09/22 09:07 Dose: 1 mg Documented By: ZANDRA Docusate Sodium (Docusate Sodium 100 Mg Capsule) 100 mg PO DAILY PRN PRN Reason: Constipation Docusate Sodium (Docusate Sodium 100 Mg Capsule) 100 mg PO DAILY PRN PRN Reason: Constipation Enoxaparin Sodium (Enoxaparin Sodium 40 Mg/0.4 Ml Syringe) 40 mg SUBCUT Q24H [facility] Last Admin: 10/09/22 08:53 Dose: 40 mg Documented By: ZANDRA Escitalopram Oxalate (Escitalopram Oxalate 10 Mg Tablet) 10 mg PO DAILY [facility] Last Admin: 10/09/22 08:54 Dose: 10 mg Documented By: AZNDRA Hydroxyzine HCl (Hydroxyzine Hcl 10 Mg Tablet) 10 mg PO DAILY [facility] Last Admin: 10/09/22 08:53 Dose: 10 mg Documented By: ZANDRA Lisinopril (Lisinopril 5 Mg Tablet) 5 mg PO DAILY [facility]; Protocol Last Admin: 10/09/22 08:54 Dose: 5 mg Documented By: ZANDRA Nicotine (Nicotine 21 Mg Patch.Td24) 21 mg TRANSDERMA DAILY [facility] Last Admin: 10/09/22 08:52 Dose: 21 mg Documented By: ZANDRA Omeprazole (Omeprazole 20 Mg Capsule.Dr) 20 mg PO DAILY@0630 [facility] Last Admin: 10/09/22 06:09 Dose: 20 mg Documented By: RAVINDRA Ondansetron HCl (Ondansetron Hcl 4 Mg/2 Ml Vial) 4 mg IVPUSH Q8H PRN PRN Reason: Nausea and Vomiting Oxcarbazepine (Oxcarbazepine 300 Mg Tablet) 600 mg PO TID [facility] Last Admin: 10/09/22 08:54 Dose: 600 mg Documented By: ZANDRA Perphenazine (Perphenazine 4 Mg Tablet) 4 mg PO BID [facility] Last Admin: 10/09/22 08:53 Dose: 4 mg Documented By: ZANDRA Pharmacy Consult (Consult Rx Perform Med Rec) 1 each MISCELLANE ONCE PRN PRN Reason: Consult order Polyethylene Glycol (Polyethylene Glycol 3350 17 Gm Powd.Pack) 17 gm PO DAILY [facility] Last Admin: 10/09/22 08:54 Dose: Not Given Documented By: ZANDRA Non-Admin Reason: Patient Refused Sodium Chloride (0.9 % Sodium Chloride Flush 3 Ml Syringe) 3 ml IVFLUSH QSHIFT [facility] Last Admin: 10/09/22 08:54 Dose: 3 ml Documented By: ZANDRA Labs 10/06/22 06:46 10/09/22 05:19 Labs: Laboratory Results - last 24 hr 10/09/22 10/09/22 01:44 05:19 Estim Creat Clear Calc 78.5 Estimated GFR > 60 Vancomycin Trough 4.7 L Assessment and Plan (1) Abnormal abdominal CT scan: Status: Acute (2) Acute hyponatremia: Status: Acute Plan 57-year-old female with past medical history of hypertension, mood disorder, epiiepsy, presented with fall, found to have clavicle fracture and acute hyponatremia Hyponatremia -seen by nephro- likely multifactorial. sodium 129 Has predilection for excess ADH,Pain also increases ADH Serum sodium stable,Euvolemic Serum potassium OK Maintain fluid restriction for now No need for tolvaptan/PO Urea/NaCl tablets clavicle fracture placed in a sling pain control abnormal abdominal CT showing possible developing volvulus abdomen soft, mildly tender, acute abdomen general surgery consulted-no acute intervention uncontrolled hypertension: slightly eelvated renal indices on doppler started lisinopril, amlodipine depression/anxiety celexa e faceium uti amoxil for 7 days (end 10/13) DVT prophylaxis:? Lovenox full code Pt -recomended rehab, wants to go home inpatient need - awaiting str reason for continued hospitalization:safe dispo Time Spent With Patient Time: Total time managing care of this patient today ____ minutes. Quality Stroke Does the patient have a stroke diagnosis?: No VTE Prior VTE?: No VTE Risk Level:: Medical - moderate - high VTE Device Contraindication: Treatment Not Indicated VTE Drug Contraindication: N/A - Med Ordered
--- NOTE | 2022-10-09 13:57 | P.DS_ITS ---
DS: Providers Provider Date of Service: 10/09/22 Date of admission: 10/06/22 01:29 Primary care physician: Adam Warren MD Consults: 10/06/22 01:28 Consult to General Surgery Routine Consulting Provider[place] [facility] Reason for consultation: abnormal CT, Volvulos Has provider been notified: No 10/06/22 06:00 Consult to Nephrology Routine Consulting Provider: [facility] 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 Patient has a history of depression, hypertension, GERD, anxiety, recurrent UTI,. Patient reports that she was walking, felt slightly dizzy, had a fall and went tumbling down her steps, developing significant pain of her right shoulder. She otherwise denies any headache, no change in vision, no loss of consciousness, no seizure-like activity, reports that she has been eating and drinking well, denies any weakness numbness or tingling. No abdominal pain nausea or vomiting, no diarrhea constipation, no urinary symptoms and no lower extremity edema On arrival to the ED patient hemodynamically stable Labs are significant for normal WBC, hemoglobin of 11.5, hematocrit 32.1, sodium of 125, increased to 127 after receiving IV fluid in the ED, serum osmolality of 266, Shoulder x-ray shows mildly displaced distal clavicular fracture Head CT negative except for a small hematoma in the right pre zygomatic soft tissue Abdomen pelvic CT as well as chest CT show nondisplaced fracture through the lateral and of the right clavicle no right rib fracture, redundant tortuous and somewhat mobile sigmoid colon extending into the left upper abdomen with appearance of the sigmoid colon in the upper abdomen as described above which is nonspecific the possibility of developing sigmoid volvulus years thought to be very less likely Patient denies any abdominal pain no nausea vomiting Nephrology was consulted, fluids were stopped, patient will be admitted for further management hospital course: Patient was admitted for acute hyponatremia. Was seen by Nephrology who recommended fluid restriction. Sodium stable around 129. Appears euvolemic. For acute clavicle fracture patient receives sling will follow up outpatient. Should be nonweightbearing until seen as outpatient. 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 From controlled hypertension was started on lisinopril and amlodipine. Renal Doppler showed elevated renal indices and can follow up outpatient with Nephrology. For depression and anxiety was continue on Celexa. For urinary tract infection due to Enterococcus faecium will complete 7 day course of amoxicillin. Patient is feeling better will be discharged home as she is not interested in alf facility for short-term rehab. Time Spent with Patient Time attestation: Total time managing care of this patient today ____ minutes. Discharge coordination time: Greater than 30 minutes Quality: Safe Use of Opioids Does Pt have an Active Cancer Diagnosis on the Problem List?: No Quality: Stroke Does the patient have a stroke diagnosis?: No Physical Exam Vital Signs: Vital Signs: Last Vital Signs Temp 96.8 F 10/09/22 03:32 Pulse 99 10/09/22 10:25 Resp 18 10/09/22 07:38 BP 168/80 H 10/09/22 11:28 Pulse Ox 99 10/09/22 10:25 O2 Del Method Room Air 10/09/22 07:38 BMI result Body Mass Index 25.9 General: AO X 3, no acute distress Resp: CTA bilateral, no accessory muscles used CVS: S1,S2,RRR GI: soft, non tender, non distended Neuro: motor grossly intact, alert Psych: appropriate affect, appropriate insight DS: Data Data Completed and Pending Labs on day of discharge: Laboratory Results - last 24 hr 10/09/22 10/09/22 01:44 05:19 Creatinine 0.74 Estim Creat Clear Calc 78.5 Estimated GFR > 60 Vancomycin Trough 4.7 L Discharge Plan Discharge Anticipated Discharge Date/Time: 10/09/22 13:53 Patient Disposition: Home, Self-Care Discharge Diagnosis: uti, hyponatremia Referrals: Radha Tompkins [Outside] Adam Warren MD [Primary Care Provider] - 1 Week Discharge Medications: New amoxicillin 500 mg Capsule 500 mg PO Q8H Qty: 15 0RF amlodipine 10 mg Tablet 10 mg PO DAILY Qty: 30 0RF Protocol: Hold for SBP< HOLD for SBP < : 90 lisinopril 5 mg Tablet 5 mg PO DAILY Qty: 30 0RF Protocol: Hold for SBP< HOLD for SBP < : 90 Continued clonazepam 1 mg tablet 1 mg PO TID PRN (Reason: Anxiety) simvastatin 40 mg tablet 40 mg PO BEDTIME citalopram 20 mg tablet 20 mg PO DAILY benztropine 1 mg tablet 1 mg PO BID omeprazole 20 mg capsule,delayed release(DR/EC) 20 mg PO DAILY oxcarbazepine 600 mg tablet 600 mg PO TID docusate sodium 100 mg capsule 100 mg PO DAILY PRN (Reason: Constipation) perphenazine 4 mg tablet 4 mg PO BID nicotine 21 mg/24 hr patch 24 hour 1 patch topical DAILY hydroxyzine HCl 10 mg tablet 10 mg PO DAILY Discharge Orders: Discharge Order (Routine); Ordered 10/09/22 Ordered By: Aldair Garcia Diet: Advance to usual diet Activity on Discharge: As tolerated Stand Alone Forms: Patient Portal Discharge page Care Plan Goals: recovery Health Concerns: uti, htn, hyponatremia Plan of Treatment: amoxil, amldoipnie, lisiopril, follwo up with pcp Assessment: see above
== END 2022-10-09 14:27 | disposition home or self-care (01) | DRG 426 ==
LOC: HO.ED 21:09 → HO.EDOVER 10-06 01:40 → HO.S3 10-06 07:37
PROVIDERS: Internal Medicine; Physician Assistant Medical; Admitting Provider Internal Medicine; Emergency Provider Internal Medicine; PCP Internal Medicine Medical Oncology; Visit Provider Internal Medicine
DX: E87.1 Hypo-osmolality and hyponatremia (principal); Q43.8 Other specified congenital malformations of intestine; N39.0 Urinary tract infection, site not specified; S42.031A Displaced fracture of lateral end of right clavicle, initial encounter for closed fracture; W10.9XXA Fall (on) (from) unspecified stairs and steps, initial encounter; F17.210 Nicotine dependence, cigarettes, uncomplicated; B95.2 Enterococcus as the cause of diseases classified elsewhere; I10 Essential (primary) hypertension; F41.9 Anxiety disorder, unspecified; K21.9 Gastro-esophageal reflux disease without esophagitis; F32.A Depression, unspecified; Z71.6 Tobacco abuse counseling; Z87.440 Personal history of urinary (tract) infections; Z79.899 Other long term (current) drug therapy
CPT/HCPCS: 36415; 70450; 71250; 72125; 73030; 74176; 76775; 80048; 80053; 80202; 81001; 82550; 82565; 83735; 83930; 83935; 84295; 84300; 85025; 85610; 85730; 87086; 87088; 87186; 93975; 97116; 97162; 99285; J1650; J2270; J2405; J3370

== ENCOUNTER → 2022-10-06 01:29 | Outpatient (BNV) | payer MEDICAID, SELFPAY | PROVIDERS: Admitting Provider Internal Medicine; Emergency Provider Internal Medicine; PCP Internal Medicine Medical Oncology; Visit Provider Internal Medicine | DX: N39.0 Urinary tract infection, site not specified (principal); B95.2 Enterococcus as the cause of diseases classified elsewhere | CPT/HCPCS: 99221 ==

== ENCOUNTER → 2022-10-06 01:29 | Outpatient (BNV) | payer MEDICAID, SELFPAY | PROVIDERS: Admitting Provider Internal Medicine; Emergency Provider Internal Medicine; PCP Internal Medicine Medical Oncology; Visit Provider Surgery | DX: R93.5 Abnormal findings on diagnostic imaging of other abdominal regions, including retroperitoneum (principal) | CPT/HCPCS: 99221 ==

== ENCOUNTER → 2022-10-06 01:29 | Outpatient (BNV) | payer MEDICAID, SELFPAY | PROVIDERS: Admitting Provider Internal Medicine; Emergency Provider Internal Medicine; PCP Internal Medicine Medical Oncology; Visit Provider Internal Medicine | DX: R93.5 Abnormal findings on diagnostic imaging of other abdominal regions, including retroperitoneum (principal); E87.1 Hypo-osmolality and hyponatremia | CPT/HCPCS: 99223; 99231; 99239; 99499 ==

== ENCOUNTER 2022-12-18 13:28 | Outpatient (REF) | payer MEDICAID, SELFPAY ==
--- NOTE | ~2022-12-18 | XR_ITS ---
EXAMINATION: XR CLAVICLE, RIGHT CLINICAL INFORMATION: Fracture of unspecified part of unspecified clavicle, initial encounter. COMPARISON: 10/05/2022 radiographs right shoulder. TECHNIQUE: Two views of the right clavicle. FINDINGS: Redemonstration of previously identified mildly displaced distal clavicular fracture. Increased irregular lucency along the fracture line characteristic of bony resorption. Acromioclavicular joint is preserved. XR/XR clavicle RT IMPRESSION: Redemonstration of previously identified mildly displaced distal clavicular fracture. Increased irregular lucency along the fracture line characteristic of bony resorption. Correlation with clinical exam recommended to determine further management. Additional imaging with CT scan or MRI should be considered for further evaluation.
== END 2022-12-18 13:29 | disposition home or self-care (01) ==
LOC: HO.HOSX 13:28
PROVIDERS: Visit Provider Physician Assistant
DX: S42.034A Nondisplaced fracture of lateral end of right clavicle, initial encounter for closed fracture (principal)
CPT/HCPCS: 73000; 99212

== ENCOUNTER 2022-12-18 14:01 | Outpatient (AMB) | payer MEDICAID, SELFPAY ==
--- NOTE | 2022-12-18 14:06 | A.OFFVIS_ITS ---
Intake Vital Signs 12/18/22 14:09 Height 5 ft 3 in Weight 141 lb BMI 25.0 Intake Visit Reasons: FC- Rt clavicle fx Intake Note: Mao 57 year old female who presents today with spouse for an evaluation of right clavicle fx, DOI 10/05/22. Patient reports having a fall, presented to [facility] ED the same day where she was placed in a sling. Followed up with PCP who referred her to orthopedic. Currently she continues to have pain in her shoulder and Limited ROM. States numbness and tingling in shoulder. Finds relief with Tylenol. Allergies No Known Allergies [No Known Allergies*] Allergy (Verified 12/18/22 14:16) HPI FC- Rt clavicle fx HPI Details 57-year-old female who presents to the [facility] today with her spouse for evaluation of right clavicle injury s/p fall, 10/05/22. She was seen at ED the same day where she was placed in a sling. She was also followed up with her PCP who referred her to our office. She currently states she has pain, limited as well as numbness and tingling in her shoulder. She finds relief with Tylenol. [facility] Medical History (Updated 12/18/22 @ 15:21 by Bob Powell PA-C) Enterococcus UTI Microscopic hematuria Pelvic pain UTI (urinary tract infection) GERD (gastroesophageal reflux disease) HTN (hypertension) Anxiety Depression Surgical History Hx of tubal ligation Family History Mother Diabetes HTN (hypertension) Father HTN (hypertension) Social History (Updated 12/18/22 @ 14:12 by EDUAR Avendaño) Household Members: Spouse Housing: Apartment Do you presently have visiting nurse or other home services: No Alcohol intake: current Alcohol intake frequency: holidays/special occasions only Patient Tobacco Use Status: Current everyday Tobacco user Tobacco use type: Cigarette Cigarettes Per Day: 1 Years Smoked: 25 e-Cigarette/Vaping Use: Currently Using Substance Use Type: Marijuana service: No Current occupational status: unemployed Sexual orientation: Straight/Heterosexual Gender identity: Female Female Reproductive History Menstrual Age of Menarche: 13 Review of Systems Const All systems reviewed & are unremarkable except as noted in HPI and below Physical Exam Vital Signs: BMI result Body Mass Index 25.0 Extrem Other: Right clavicle: Skin is intact. No skin tenting or skin breakdown. There is no obvious bony deformity with tenderness to palpation over the fracture site. Anterior deltoid sensation is intact. Full ROM of elbow with no pain. No pain along the forearm. Negative squeeze test. No pain along the distal radius. NVI. Office Procedures Fracture Care Fracture Billing Code: Fracture Billing Code Results Reviewed Results Reviewed: Xrays were obtained in the office today and personally reviewed by me of the right clavicle show stable, healing distal clavicle fracture Assessment & Plan Assessment & Plan (1) Right clavicle fracture: Code(s): S42.001A - Fracture of unspecified part of right clavicle, initial encounter for closed fracture Qualifiers: Encounter type: initial encounter Clavicle location: lateral end Fracture type: closed Fracture alignment: nondisplaced Qualified Code(s): S42.034A - Nondisplaced fracture of lateral end of right clavicle, initial encounter for closed fracture Plan She appears to be healing well. An order for physical therapy has been placed to work on to work on gentle ROM and periscapular stabilization. She will increase activity as tolerated see me back as needed. Orders: Orders XR clavicle RT Today S42.009A - Fracture of unspecified part of unspecified clavicle, initial encounter for closed fracture PT Evaluation and Treatment Today S42.001A - Fracture of unspecified part of right clavicle, initial encounter for closed fracture Patient Instructions: Scribed for Bob Powell PA-C, by Fazal Giles medical van driver, on 12/18/2022 at 2:00 PM EST. I, Bob Powell PA-C, have personally reviewed and agree with the information entered by the scribe. Coding Level of Care Code New Pt Level 3 (06103) Diagnoses Closed nondisplaced fracture of acromial end of right clavicle, initial encounter S42.034A Encounter type: initial encounter Clavicle location: lateral end Fracture type: closed Fracture alignment: nondisplaced CPT Codes Fracture Care - Fracture Billing Code: Fracture Billing Code ([id number])
[2022-12-18 14:09] VITALS: BMI 25.0
== END 2022-12-18 15:10 | disposition home or self-care (01) ==
PROVIDERS: PCP Internal Medicine Medical Oncology; Visit Provider Physician Assistant
DX: S42.034A Nondisplaced fracture of lateral end of right clavicle, initial encounter for closed fracture (principal)
CPT/HCPCS: 99203

== ENCOUNTER 2023-01-01 09:20 | Outpatient (REF) | payer MEDICAID, SELFPAY ==
[2023-01-01 09:39] LABS: MANUAL DIFF FLAG NO
[2023-01-01 09:57] LABS: Basophils Percent Auto 0.2 % (0-2); Eosinophils Percent Auto 0.5 % (0-4); Hematocrit 35.5 % (37.0-47.0); Hemoglobin 12.9 g/dl (12.0-16.0); Imm Gran Abs Auto 0.01 X10*3/uL (0.00-0.03); Imm Gran Pct Auto 0.2 % (0.0-0.4); Lymphocytes Absolute Auto 1.2 X10*3/uL (1.2-4.9); Lymphocytes Percent Auto 28.6 % (20-40); Mean Corpuscular HGB Conc 36.3 g/dl (31.0-35.0); Mean Corpuscular Volume 93.7 fL (80.0-98.0); Mean Platelet Volume 9.1 fL (9.4-12.3); Monocytes Absolute Auto 0.6 X10*3/uL (0.1-1.2); Monocytes Percent Auto 14.2 % (2-11); Neutrophils Absolute Auto 2.3 x10*3/uL (2.0-8.3); Neutrophils Percent Auto 56.3 % (45-73); Platelet Count 166 X10*3/uL (160-400); Red Blood Count 3.79 X10*6/uL (4.20-5.50); Red Cell Distribution Width 11.9 % (11.0-16.0); White Blood Count 4.2 X10*3/uL (4.8-10.8)
[2023-01-01 10:35] LABS: Alanine Aminotransferase 12 U/L (0-31); Albumin Level 4.5 g/dL (3.5-5.0); Alkaline Phosphatase 133 U/L (39-117); Anion Gap 13 (12-20); Aspartate Amino Transferase 21 U/L (5-31); Bilirubin Total 0.3 mg/dL (0.0-1.0); Blood Urea Nitrogen 8 mg/dL (9-16); Calcium 9.6 mg/dL (8.4-10.2); Carbon Dioxide 27 mmol/L (22-29); Chloride 94 mmol/L (96-108); Cholesterol 163 mg/dL (<200); Estimated Glomerular Filt Rate > 60; Glucose Fasting 93 mg/dL (60-99); HDL Cholesterol 56 mg/dL (>40); LDL Cholesterol Calculated 93 mg/dL (<100); Potassium 4.6 mmol/L (3.3-5.1); Sodium 129 mmol/L (135-145); Total Protein 7.9 g/dL (6.5-8.0); Triglycerides 73 mg/dL (<150)
== END 2023-01-01 09:21 | disposition home or self-care (01) ==
LOC: HO.LAB 09:20
PROVIDERS: PCP Internal Medicine Medical Oncology; Visit Provider Internal Medicine Medical Oncology
DX: E78.5 Hyperlipidemia, unspecified (principal); E66.3 Overweight
CPT/HCPCS: 36415; 80053; 80061; 85025

== ENCOUNTER 2023-05-04 10:46 | Outpatient (REF) | payer MEDICAID, SELFPAY ==
[2023-05-04 13:10] LABS: MANUAL DIFF FLAG NO
[2023-05-04 13:23] LABS: Basophils Percent Auto 0.3 % (0-2); Eosinophils Absolute Auto 0.1 X10*3/uL (0.0-0.4); Eosinophils Percent Auto 1.2 % (0-4); Hematocrit 37.4 % (37.0-47.0); Hemoglobin 13.4 g/dl (12.0-16.0); Imm Gran Abs Auto 0.02 X10*3/uL (0.00-0.03); Imm Gran Pct Auto 0.3 % (0.0-0.4); Lymphocytes Absolute Auto 1.9 X10*3/uL (1.2-4.9); Lymphocytes Percent Auto 32.7 % (20-40); Mean Corpuscular HGB Conc 35.8 g/dl (31.0-35.0); Mean Corpuscular Hemoglobin 34.1 pg (27.0-33.0); Mean Corpuscular Volume 95.2 fL (80.0-98.0); Mean Platelet Volume 9.9 fL (9.4-12.3); Monocytes Absolute Auto 0.6 X10*3/uL (0.1-1.2); Neutrophils Absolute Auto 3.2 x10*3/uL (2.0-8.3); Neutrophils Percent Auto 55.5 % (45-73); Platelet Count 177 X10*3/uL (160-400); Red Blood Count 3.93 X10*6/uL (4.20-5.50); Red Cell Distribution Width 11.7 % (11.0-16.0); White Blood Count 5.7 X10*3/uL (4.8-10.8)
[2023-05-04 13:36] LABS: Alanine Aminotransferase 14 U/L (0-31); Albumin Level 4.7 g/dL (3.5-5.0); Alkaline Phosphatase 114 U/L (39-117); Anion Gap 11 (12-20); Aspartate Amino Transferase 21 U/L (5-31); Bilirubin Total 0.4 mg/dL (0.0-1.0); Blood Urea Nitrogen 10 mg/dL (9-16); Calcium 10.1 mg/dL (8.4-10.2); Carbon Dioxide 29 mmol/L (22-29); Chloride 96 mmol/L (96-108); Cholesterol 170 mg/dL (<200); Estimated Glomerular Filt Rate > 60; Glucose Fasting 86 mg/dL (60-99); HDL Cholesterol 66 mg/dL (>40); LDL Cholesterol Calculated 88 mg/dL (<100); Potassium 4.7 mmol/L (3.3-5.1); Sodium 131 mmol/L (135-145); Total Protein 8.1 g/dL (6.5-8.0); Triglycerides 80 mg/dL (<150)
== END 2023-05-04 10:47 | disposition home or self-care (01) ==
LOC: HO.HHCL 10:46
PROVIDERS: Visit Provider Internal Medicine Medical Oncology
DX: E78.5 Hyperlipidemia, unspecified (principal); E66.3 Overweight
CPT/HCPCS: 36415; 80053; 80061; 85025

== ENCOUNTER 2023-10-02 11:34 | Outpatient (REF) | payer MEDICAID, SELFPAY ==
--- NOTE | ~2023-10-02 | MM_ITS ---
EXAMINATION: MM SCREENING DIGITAL BREAST TOMOSYNTHESIS, BILATERAL CLINICAL INFORMATION: Screening. Asymptomatic. COMPARISON: Mammography: This study is compared with prior exams dating back to 2015. TECHNIQUE: Digital breast tomosynthesis is performed in both the craniocaudal and mediolateral oblique views along with computer-aided detection (CAD). Synthesized 2D images are generated from the tomosynthesis. FINDINGS: There are scattered areas of fibroglandular density (ACR BI-RADS breast composition Category b). In the upper outer quadrant of the left breast, there are grouped calcifications which were not additional mammographic imaging with magnification. In the right breast, there are no significant masses, abnormal calcifications, or other abnormalities. MM/MM tomosynthesis screening BI IMPRESSION: Grouped calcifications of the left breast were not additional mammographic imaging of magnification. No mammographic signs of malignancy right breast. ASSESSMENT: BI-RADS BI-RADS 0 - Incomplete: Needs additional Imaging. RECOMMENDATION: Additional views of the left breast. Radiology department staff will contact the patient for additional imaging. Additional Imaging required This examination should not preclude the clinical evaluation of a suspicious palpable abnormality. This patient's information was entered into a reminder system with a target due date for their next mammogram. Electronically signed by: Hoa Yuen MD 10/29/2023 02:34 PM EDT
== END 2023-10-02 11:35 | disposition home or self-care (01) ==
LOC: HO.MAMMO 11:34
PROVIDERS: PCP Internal Medicine Medical Oncology; Visit Provider Internal Medicine Medical Oncology
DX: Z12.31 Encounter for screening mammogram for malignant neoplasm of breast (principal)
CPT/HCPCS: 77063; 77067

== ENCOUNTER → 2023-10-02 11:45 | Outpatient (BNV) | payer MEDICAID, SELFPAY | PROVIDERS: PCP Internal Medicine Medical Oncology; Visit Provider Radiology Diagnostic Radiology | DX: Z12.31 Encounter for screening mammogram for malignant neoplasm of breast (principal) | CPT/HCPCS: 77063; 77067 ==

== ENCOUNTER 2023-11-19 08:50 | Outpatient (REF) | payer MEDICAID, SELFPAY ==
[2023-11-19 11:29] LABS: MANUAL DIFF FLAG NO
[2023-11-19 11:58] LABS: Basophils Percent Auto 0.4 % (0-2); Eosinophils Absolute Auto 0.1 X10*3/uL (0.0-0.4); Eosinophils Percent Auto 2.2 % (0-4); Hematocrit 33.3 % (37.0-47.0); Hemoglobin 11.7 g/dl (12.0-16.0); Imm Gran Abs Auto 0.01 X10*3/uL (0.00-0.03); Imm Gran Pct Auto 0.2 % (0.0-0.4); Lymphocytes Absolute Auto 1.8 X10*3/uL (1.2-4.9); Lymphocytes Percent Auto 36.5 % (20-40); Mean Corpuscular HGB Conc 35.1 g/dl (31.0-35.0); Mean Corpuscular Hemoglobin 34.1 pg (27.0-33.0); Mean Corpuscular Volume 97.1 fL (80.0-98.0); Mean Platelet Volume 10.2 fL (9.4-12.3); Monocytes Absolute Auto 0.5 X10*3/uL (0.1-1.2); Monocytes Percent Auto 10.3 % (2-11); Neutrophils Absolute Auto 2.5 x10*3/uL (2.0-8.3); Neutrophils Percent Auto 50.4 % (45-73); Platelet Count 163 X10*3/uL (160-400); Red Blood Count 3.43 X10*6/uL (4.20-5.50); Red Cell Distribution Width 12.8 % (11.0-16.0); White Blood Count 4.9 X10*3/uL (4.8-10.8)
[2023-11-19 12:35] LABS: Alanine Aminotransferase 11 U/L (0-31); Albumin Level 4.3 g/dL (3.5-5.0); Alkaline Phosphatase 105 U/L (39-117); Anion Gap 11 (12-20); Aspartate Amino Transferase 18 U/L (5-31); Bilirubin Total 0.3 mg/dL (0.0-1.0); Blood Urea Nitrogen 13 mg/dL (9-16); Calcium 9.7 mg/dL (8.4-10.2); Carbon Dioxide 23 mmol/L (22-29); Chloride 105 mmol/L (96-108); Cholesterol 190 mg/dL (<200); Estimated Glomerular Filt Rate > 60; Glucose Random 99 mg/dL (60-115); HDL Cholesterol 58 mg/dL (>40); LDL Cholesterol Calculated 119 mg/dL (<100); Sodium 135 mmol/L (135-145); Total Protein 7.5 g/dL (6.5-8.0); Triglycerides 67 mg/dL (<150)
== END 2023-11-19 08:51 | disposition home or self-care (01) ==
LOC: HO.HHCL 08:50
PROVIDERS: Visit Provider Internal Medicine Medical Oncology
DX: D64.9 Anemia, unspecified (principal); E78.5 Hyperlipidemia, unspecified; E66.3 Overweight
CPT/HCPCS: 36415; 80053; 80061; 85025

== ENCOUNTER 2023-11-27 09:24 | Outpatient (REF) | payer MEDICAID, SELFPAY ==
--- NOTE | ~2023-11-27 | CT_ITS ---
EXAMINATION: CT head/brain wo/w IV con CLINICAL INFORMATION: ataxia COMPARISON: CT head 10/05/2022 TECHNIQUE: Contiguous axial imaging was performed from the skull base to vertex before and after the uneventful administration of 85 mm Omnipaque [address] examination was performed using dose optimization techniques as appropriate, variously including the following: * Automated exposure control * Adjustment of mA and/or kV according to patient size (this includes techniques or standardized protocols for targeted exams where dose is matched to indication/reason for exam; i.e. extremities or head) * Use of iterative reconstruction technique DLP: 1257 mGy-cm. FINDINGS: There is no evidence of acute intracranial hemorrhage or territorial infarction. Isabel to white matter differentiation is well preserved. No enhancing mass. No abnormal mass effect or midline shift is seen. No extra-axial fluid collections are identified. No hydrocephalus. No significant volume loss. Patchy periventricular and deep white matter hypoattenuation. The cerebellar tonsils are well positioned. No acute osseous or soft tissue abnormality. Visualized portions of the orbits are unremarkable. The mastoid air cells and visualized portions of the paranasal sinuses are well aerated. CT/CT head/brain wo/w IV con IMPRESSION: 1. No acute intracranial hemorrhage or edematous territorial infarction. No enhancing lesion. 2. Patchy periventricular and deep white matter hypoattenuation is nonspecific and may be seen with ischemic microangiopathy versus white matter disease. If clinically warranted, consider brain MRI for further assessment. Electronically signed by: Caty Bowman DO 11/27/2023 11:32 AM EDT
[2023-11-27] MEDS: iohexoL 350 MG/ML 100 ML INFUS..BTL IV (10:19)
== END 2023-11-27 09:25 | disposition home or self-care (01) ==
LOC: HO.CT 09:24
PROVIDERS: PCP Internal Medicine Medical Oncology; Visit Provider Internal Medicine Medical Oncology
DX: G11.9 Hereditary ataxia, unspecified (principal)
CPT/HCPCS: 70470; Q9967

== ENCOUNTER 2024-01-09 17:51 | Emergency (ER) | payer MEDICAID, SELFPAY ==
[2024-01-09] MEDS: LORazepam 2 MG/ML VIAL 1 MG IVPUSH (18:08)
[2024-01-09 18:10] VITALS: BP 148/78; BP 154/65; PULSE 70; PULSE 87; RESP 19; TEMP 36.8; O2SAT 95; O2SAT 99; BMI 25.0
[2024-01-09 18:12] LABS: MANUAL DIFF FLAG NO
[2024-01-09 18:13] VITALS: BP 154/65; PULSE 70; RESP 19; TEMP 36.8; O2SAT 95
--- NOTE | 2024-01-09 18:17 | PC.NURSE ---
Pt arrives to ED via EMS. Per EMS report, Pt ran out of her Rx for Citalopram and is experiencing severe anxiety. Pt notably upset upon arrival and is inconsolable. Pt is severely tearful screaming, and trembling. 22g to L hand placed and Pt given IV Ativan per MAR with good result. Pt is now resting comfortably with eye closed. VSS, afebrile. Pt is SSO. Blood labs drawn--results pending.
[2024-01-09 18:40] LABS: Basophils Percent Auto 0.2 % (0-2); Eosinophils Absolute Auto 0.1 X10*3/uL (0.0-0.4); Eosinophils Percent Auto 1.1 % (0-4); Hematocrit 35.4 % (37.0-47.0); Hemoglobin 12.4 g/dl (12.0-16.0); Imm Gran Abs Auto 0.03 X10*3/uL (0.00-0.03); Imm Gran Pct Auto 0.4 % (0.0-0.4); Lymphocytes Absolute Auto 3.7 X10*3/uL (1.2-4.9); Lymphocytes Percent Auto 46.6 % (20-40); Mean Platelet Volume 9.5 fL (9.4-12.3); Monocytes Absolute Auto 0.9 X10*3/uL (0.1-1.2); Monocytes Percent Auto 10.9 % (2-11); Neutrophils Absolute Auto 3.3 x10*3/uL (2.0-8.3); Neutrophils Percent Auto 40.8 % (45-73); Platelet Count 152 X10*3/uL (160-400); Red Blood Count 3.65 X10*6/uL (4.20-5.50); Red Cell Distribution Width 12.2 % (11.0-16.0)
[2024-01-09 19:07] LABS: Alanine Aminotransferase 18 U/L (0-31); Albumin Level 4.7 g/dL (3.5-5.0); Alkaline Phosphatase 110 U/L (39-117); Anion Gap 19 (12-20); Aspartate Amino Transferase 31 U/L (5-31); Bilirubin Total 0.4 mg/dL (0.0-1.0); Blood Urea Nitrogen 10 mg/dL (9-16); Calcium 10.1 mg/dL (8.4-10.2); Carbon Dioxide 19 mmol/L (22-29); Chloride 106 mmol/L (96-108); Creatinine Clr Calc Pharmacy 69.7; Estimated Glomerular Filt Rate > 60; Ethanol < 10 mg/dL; Glucose Random 79 mg/dL (60-115); Magnesium 2.1 mg/dL (1.6-2.6); Potassium 4.1 mmol/L (3.3-5.1); Sodium 140 mmol/L (135-145); Total Protein 8.1 g/dL (6.5-8.0)
[2024-01-09] MEDS: Escitalopram Oxalate 20 MG TABLET PO (19:20)
[2024-01-09 19:45] VITALS: BP 128/55; PULSE 65; RESP 16; TEMP 36.8; O2SAT 97
--- NOTE | 2024-01-09 19:59 | MHC.EDTECH ---
This pct assumed care of at 1900 ,vitals taken ,Patient was assisted to bathroom ,void and was assisted back to bed ,urine sample collected and sent to lab ,Patient was change into hospital attire ,Patient family at bedside ,no apparent distress noted ,all safety measure in Place .
[2024-01-09 20:29] LABS: Amphetamine Screen Urine Not Detected (Not Detect); Barbiturates, Urine Not Detected (Not Detect); Benzodiazepines Screen Urine Not Detected (Not Detect); Buprenorphine Scr Not Detected (Not Detect); Cannabinoid Screen Urine POSITIVE (Not Detect); Cocaine Screen Urine Not Detected (Not Detect); Fentanyl, urine Not Detected (Not Detect); Methadone Screen, Urine Not Detected (Not Detect); Opiate Screen Urine Not Detected (Not Detect); Oxycodone Screen Urine Not Detected (Not Detect); Phencyclidine Screen Urine Not Detected (Not Detect)
--- NOTE | 2024-01-09 21:15 | ED_ITS ---
HPI - Anxiety General Chief Complaint: Anxiety Stated Complaint: OUT OF MED/ANXIETY/SHAKING PER EMS Time Seen by Provider: 01/09/24 17:57 Source: patient Limitations: language barrier History of Present Illness ED Provider: Harika Nolasco PA-C HPI narrative: 58-year-old female with a history of anxiety, depression, hypertension presents with a panic attack. Patient admits she has been using her citalopram more frequently at home, she does not get a medication refill until Thursday. Denies SI or HI. Related Data Home Medications ?Medication ?Instructions ?Recorded ?Confirmed benztropine 1 mg tablet 1 mg PO BID 05/21/20 10/06/22 citalopram 20 mg tablet 20 mg PO DAILY 05/21/20 10/06/22 clonazepam 1 mg tablet 1 mg PO TID PRN Anxiety 05/21/20 10/06/22 omeprazole 20 mg capsule,delayed 20 mg PO DAILY 05/21/20 10/06/22 release oxcarbazepine 600 mg tablet 600 mg PO TID 05/21/20 10/06/22 simvastatin 40 mg tablet 40 mg PO BEDTIME 05/21/20 10/06/22 docusate sodium 100 mg capsule 100 mg PO DAILY PRN Constipation 10/06/22 10/06/22 hydroxyzine HCl 10 mg tablet 10 mg PO DAILY 10/06/22 10/06/22 nicotine 21 mg/24 hr daily 1 patch topical DAILY 10/06/22 10/06/22 transdermal patch perphenazine 4 mg tablet 4 mg PO BID 10/06/22 10/06/22 diltiazem HCl 240 mg capsule,24 240 mg PO DAILY 12/18/22 hr,extended release Previous Rx's ?Medication ?Instructions ?Recorded amlodipine 10 mg tablet 10 mg PO DAILY #30 tabs 10/09/22 citalopram 20 mg tablet 20 mg PO DAILY #1 tab 01/09/24 Allergies Allergy/AdvReac Type Severity Reaction Status Date / Time No Known Allergies Allergy Verified 01/09/24 18:13 [No Known Allergies*] Review of Systems 2 Review of Systems: Yes all other systems are reviewed and are negative Constitutional: Constitutional: Denies fatigue and Denies fever(s) Cardiovascular: Cardiovascular: Denies chest pain and Denies dyspnea Respiratory: Respiratory: Denies dyspnea Psychiatric: Psychiatric: Reports panic attacks Endocrine: Endocrine: Denies fatigue [facility] Past Medical History Attestation statement: The following information was validated with the patient. Medical History (Updated 01/09/24 @ 21:25 by DIONISIO Girard) Enterococcus UTI Microscopic hematuria Pelvic pain UTI (urinary tract infection) GERD (gastroesophageal reflux disease) HTN (hypertension) Anxiety Depression Surgical History Hx of tubal ligation Family History Family History Mother Diabetes HTN (hypertension) Father HTN (hypertension) Social History Social History (Updated 12/18/22 @ 14:12 by EDUAR Avendaño) Household Members: Spouse Housing: Apartment Do you presently have visiting nurse or other home services: No Unable to assess alcohol history related to: Unable to respond and Unknown Alcohol intake: current Alcohol intake frequency: holidays/special occasions only Patient Tobacco Use Status: Current everyday Tobacco user Tobacco use type: Cigarette Cigarettes Per Day: 1 Years Smoked: 25 e-Cigarette/Vaping Use: Currently Using Use of substances other than those prescribed or required for medical reasons: Unable to respond Substance Use Type: Marijuana Advance Directives: No Advance Directives Information Provided: No Do you have a plan to hurt others: No Plan Patient : No service: No Current occupational status: unemployed Sexual orientation: Straight/Heterosexual Gender identity: Female Physical Exam 2 Vital Signs: Vital Signs: Last Vital Signs Temp 98.2 F 01/09/24 19:45 Pulse 65 01/09/24 19:45 Resp 16 01/09/24 19:45 BP 128/55 L 01/09/24 19:45 Pulse Ox 97 01/09/24 19:45 O2 Del Method Room Air 01/09/24 19:45 BMI result Body Mass Index 25.0 Const: Other: Alert, appears older than stated age, screaming yelling crying as she enters the emergency department Orientation/consciousness: patient oriented x3 Resp: Other: Nonlabored respirations Cardio: Other: Normal peripheral perfusion Skin: Other: Warm dry no rash Neuro: General: patient oriented x3, no focal motor deficits and CN's II-XI intact bilaterally Psych: Other: Anxious having a panic attack Medications Administered Discontinued Medications Generic Name Dose Route Start Last Admin Trade Name Freq PRN Reason Stop Dose Admin Escitalopram Oxalate 20 mg 01/09/24 19:03 01/09/24 19:20 Escitalopram Oxalate 20 Mg Tablet PO 01/09/24 19:04 20 mg ONCE ONE Administration Lorazepam 1 mg 01/09/24 17:58 01/09/24 18:08 Lorazepam 2 Mg/Ml Vial IVPUSH 01/09/24 17:59 1 mg ONCE ONE Administration Medical Decision Making Medical Decision Making [facility] Narrative: 58-year-old female with a history of anxiety, depression, hypertension presents with a panic attack. Patient admits she has been using her citalopram more frequently at home, she does not get a medication refill until Thursday. Denies SI or HI. Problem: Anxiety and depression History: Per patient I have considered the following differential diagnoses: SI, toxic ingestion, poorly controlled anxiety, panic attack, decompensated psychiatric illness, drug/alcohol intoxication Plan: Patient having an active panic attack, we will be giving Ativan her prescribed citalopram. We will be screening basic labs, serum ethanol and drug screen. She is not suicidal or homicidal, she is not altered, I do not believe she requires care team consult. I have relayed to her that she needs to take her medication only as directed, that I would give her a prescription for 1 pill that she can take tomorrow as her medications we will be delivered to her home the following day. I will also be sending her with resources for outpatient therapy as her anxiety is clearly poorly controlled. I have independently reviewed the following tests: Labs: No leukocytosis, not anemic, we will electrolyte abnormality, ethanol negative, U tox positive for cannabinoids Lab Data 01/09/24 18:09 01/09/24 18:09 Labs: Lab Results 01/09/24 01/09/24 Range/Units 18:09 19:59 WBC 8.0 (4.8-10.8) X10*3/uL RBC 3.65 L (4.20-5.50) X10*6/uL Hgb 12.4 (12.0-16.0) g/dl Hct 35.4 L (37.0-47.0) % MCV 97.0 (80.0-98.0) fL MCH 34.0 H (27.0-33.0) pg MCHC 35.0 (31.0-35.0) g/dl RDW 12.2 (11.0-16.0) % Plt Count 152 L (160-400) X10*3/uL MPV 9.5 (9.4-12.3) fL Immature Gran % (Auto) 0.4 (0.0-0.4) % Neut % (Auto) 40.8 L (45-73) % Lymph % (Auto) 46.6 H (20-40) % Lincoln % (Auto) 10.9 (2-11) % Eos % (Auto) 1.1 (0-4) % Baso % (Auto) 0.2 (0-2) % Lymph # (Auto) 3.7 (1.2-4.9) X10*3/uL Lincoln # (Auto) 0.9 (0.1-1.2) X10*3/uL Eos # (Auto) 0.1 (0.0-0.4) X10*3/uL Baso # (Auto) 0.0 (0.0-0.2) X10*3/uL Abs Immat Gran (auto) 0.03 (0.00-0.03) X10*3/uL Absolute Neuts (auto) 3.3 (2.0-8.3) x10*3/uL Absolute Nucleated RBC 0.000 (0.0-0.012) X10*3/uL Nucleated RBC % (auto) 0.0 (0.0-0.2) /100WBC Sodium 140 (135-145) mmol/L Potassium 4.1 (3.3-5.1) mmol/L Chloride 106 (96-108) mmol/L Carbon Dioxide 19 L (22-29) mmol/L Anion Gap 19 (12-20) BUN 10 (9-16) mg/dL Creatinine 0.75 (0.5-1.4) mg/dL Estim Creat Clear Calc 69.7 Estimated GFR > 60 Random Glucose 79 (60-115) mg/dL Calcium 10.1 (8.4-10.2) mg/dL Magnesium 2.1 (1.6-2.6) mg/dL Total Bilirubin 0.4 (0.0-1.0) mg/dL AST 31 (5-31) U/L ALT 18 (0-31) U/L Alkaline Phosphatase 110 (39-117) U/L Total Protein 8.1 H (6.5-8.0) g/dL Albumin 4.7 (3.5-5.0) g/dL Urine Opiates Screen Not Detected (Not Detect) Ur Buprenorphine Scrn Not Detected (Not Detect) ng/mL Ur Oxycodone Screen Not Detected (Not Detect) ng/mL Urine Methadone Screen Not Detected (Not Detect) ng/mL Urine Fentanyl Screen Not Detected (Not Detect) Ur Barbiturates Screen Not Detected (Not Detect) Ur Phencyclidine Scrn Not Detected (Not Detect) Ur Amphetamines Screen Not Detected (Not Detect) U Benzodiazepines Scrn Not Detected (Not Detect) Urine Cocaine Screen Not Detected (Not Detect) U Marijuana (THC) Screen POSITIVE H (Not Detect) Ethyl Alcohol < 10 mg/dL Discharge Plan Discharge Clinical Impression: Panic attack Patient Disposition: Home, Self-Care Instructions: Panic Attack (ED) Additional Instructions: You were treated for a panic attack. See home care instructions. It is very important that you take your medication only as directed by your doctor. I am giving you a 1 time dose of the citalopram that you can take tomorrow, it is sent to the [facility] on [facility]. I am sending you with resources for outpatient counseling/therapy, your anxiety is clearly poorly controlled. Some of the facilities have walk-in hours. Prescriptions: New citalopram 20 mg tablet 20 mg PO DAILY Qty: 1 0RF No Action clonazepam 1 mg tablet 1 mg PO TID PRN (Reason: Anxiety) simvastatin 40 mg tablet 40 mg PO BEDTIME citalopram 20 mg tablet 20 mg PO DAILY benztropine 1 mg tablet 1 mg PO BID omeprazole 20 mg capsule,delayed release(DR/EC) 20 mg PO DAILY oxcarbazepine 600 mg tablet 600 mg PO TID docusate sodium 100 mg capsule 100 mg PO DAILY PRN (Reason: Constipation) perphenazine 4 mg tablet 4 mg PO BID nicotine 21 mg/24 hr patch 24 hour 1 patch topical DAILY hydroxyzine HCl 10 mg tablet 10 mg PO DAILY amlodipine 10 mg Tablet 10 mg PO DAILY Qty: 30 0RF Protocol: Hold for SBP< HOLD for SBP < : 90 diltiazem HCl 240 mg capsule,extended release 24 hr 240 mg PO DAILY Print Language: Wolof
[2024-01-09 21:16] VITALS: BP 148/68; PULSE 56; RESP 16; TEMP 36.8; O2SAT 97
[2024-01-09 22:14] VITALS: BP 148/68; PULSE 56; RESP 16; TEMP 36.8; O2SAT 97
== END 2024-01-09 22:15 | disposition home or self-care (01) ==
PROVIDERS: Physician Assistant Medical; Emergency Provider Internal Medicine
DX: F41.0 Panic disorder [episodic paroxysmal anxiety] (principal); F32.A Depression, unspecified; F12.90 Cannabis use, unspecified, uncomplicated; F17.210 Nicotine dependence, cigarettes, uncomplicated; Z79.899 Other long term (current) drug therapy
CPT/HCPCS: 36415; 80053; 80307; 83735; 85025; 96374; 99284; J2060

== ENCOUNTER 2024-04-12 08:51 | Outpatient (REF) | payer MEDICAID, SELFPAY ==
--- OUTSIDE RECORDS SUMMARY | 2024-04-12 09:22 | XMS_ITS ---
Author Organization Adam Warren III, MD Address [address] [place] [address] Care Team Providers Care Data Base Design Analyst Name Role Phone Adam Warren Primary Care Provider REASON FOR VISIT med list update Medications Medication SIG (Take, Route, Frequency, Duration) Notes Start Date End Date Status dilTIAZem HCl ER Beads 240 mg TAKE 1 CAPSULE BY MOUTH DAILY Active Docusate Sodium 100 MG 1 capsule as need ed Orally Once a day 10/16/2016 Active hydrOXYzine HCl 10 MG Orally Active OXcarbazepine 600 MG 1 tablet Orally Twi ce a day Active ProAir HFA 108 (90 Base) MCG/ACT 2 puffs as needed Inhalation four times a day 01/07/2017 Active Benztropine Mesylate 1 MG TAKE 1 TABLET BY MOUTH TWICE DAILY Oral for 30 Days Active clonazePAM 1 MG TAKE 1 TABLET BY LAYLA TH THREE TIMES DAILY NEEDED FOR SEVERE ANXIETY / PANIC ATTACK Oral for 30 Days Active Citalopram Hydrobromide 20 MG TAKE 1 TABLET BY MOUTH EVERY DAY AT BEDTIME Oral for 30 Days Active Simvastatin 40 MG TAKE 1 TABLET AT BEDTIME Active Omeprazole 20 MG 1 capsule Orally Onc e a day 06/03/2017 Active Social History Sex Assigned At : Social History Observation Description Sex Assigned At Female Encounters Encounter Location Date Provider Diagnosis Adam Warren III, MD [address] [place] [address] [place] [address] 02/26/2024 Adam Warren Plan Of Treatment Next Appt Details Provider Name:Adam Warren, 04/12/2024 02:00:00 PM, [address] [place] [address] [place], [address], Progress Notes * NETO Shellie ALTAMIRANODOB: (58 yo F)Acc No.[id number]:02/26/2024 Patient:?NETO ALTAMIRANO Ma leora :1965???Age:58 Y???Sex:Female Address:[address] [place] [id number] Subjective: * Chief Complaints: * ???Med list update * Medical History:? * Surgical History:? * Hospitalization/Major Diagno stic Procedure:? * Medications:?TakingdilTIAZem HCl ER Beads 240 mg Capsule Extended Release 24 Hour TAKE 1 CAPSULE BY MOUTH DAILY OXcarbazepine 600 MG Tablet 1 tablet Orally Twice a day hydrOXYzine HCl 10 MG Tablet Orally Docusate Sodium 100 MG Capsule 1 capsule as needed Orally Once a day Omeprazole 20 MG Capsule Delayed Release 1 capsule Orally Once a day Simvastatin 40 MG Tablet TAKE 1 TABLET AT BEDTIME clonazePAM 1 MG Tablet TAKE 1 TABLET BY MOUTH THREE TIMES DAILY NEEDED FOR SEVERE ANXIETY / PANIC ATTACK Oral Benztropine Mesylate 1 MG Tablet TAKE 1 TABLET BY MOUTH TWICE DAILY Oral Citalopram Hydrobromide 20 MG Tablet TAKE 1 TABLET BY MOUTH EVERY DAY AT BEDTIME Oral ProAir HFA 108 (90 Base) MCG/ACT Aerosol Solution 2 puffs as needed Inhalation four times a day Taking dilTIAZem HCl ER Beads 240 mg Capsule Extended Release 24 Hour TAKE 1 CAPSULE BY MOUTH DAILY Taking OXcarbazepine 600 MG Tablet 1 tablet Orally Twice a day Taking hydrOXYzine HCl 10 MG Tablet Orally Taking Docusate Sodium 100 MG Capsule 1 capsule as needed Orally Once a day Taking Omeprazole 20 MG Capsule Delayed Release 1 capsule Orally Once a day Taking Simvastatin 40 MG Tablet TAKE 1 TABLET AT BEDTIME Taking clonazePAM 1 MG Tablet TAKE 1 TABLET BY MOUTH THREE TIMES DAILY NEEDED FOR SEVERE ANXIETY / PANIC ATTACK Oral Taking Benztropine Mesylate 1 MG Tablet TAKE 1 TABLET BY MOUTH TWICE DAILY Oral Taking Citalopram Hydrobromide 20 MG Tablet TAKE 1 TABLET BY MOUTH EVERY DAY AT BEDTIME Oral Taking ProAir HFA 108 (90 Base) MCG/ACT Aerosol Solution 2 puffs as needed Inhalation four times a day DiscontinuedKlonoPIN 0.5 MG Tablet 1 tablet Orally twice a day Perphenazine 4 MG Tablet 1 tablet Orally Once a day Cogentin 1 MG/ML Solution 1 ml Injection Once a day CeleXA 20 MG Tablet 1 tablet Orally Once a day KlonoPIN 0.5 MG Tablet 1 tablet Orally Twice a day Cartia XT 240 MG Capsule Extended Release 24 Hour 1 capsule Orally Once a day Myrbetriq 50 MG Tablet Extended Release 24 Hour 1 tablet Orally Once a day Medication List reviewed and reconciled with the patientDiscontinued KlonoPIN 0.5 MG Tablet 1 tablet Orally twice a day Discontinued Perphenazine 4 MG Tablet 1 tablet Orally Once a day Discontinued Cogentin 1 MG/ML Solution 1 ml Injection Once a day Discontinued CeleXA 20 MG Tablet 1 tablet Orally Once a day Discontinued KlonoPIN 0.5 MG Tablet 1 tablet Orally Twice a day Discontinued Cartia XT 240 MG Capsule Extended Release 24 Hour 1 capsule Orally Once a day Discontinued Myrbetriq 50 MG Tablet Extended Release 24 Hour 1 tablet Orally Once a day Medication List reviewed and reconciled with the patient Objective: * Vitals:? * Physical Examination:? Assessment: Plan: * Treatment: * Procedure Codes:? * true * Date:? Generated for Jonelle ramachandran/Cipriano/Oziel on:?04/12/2024 09:22 AM EST
--- OUTSIDE RECORDS SUMMARY | 2024-04-12 09:22 | XMS_ITS | Clinical Summary ---
Author Organization Unknown Care Team Providers Care Liquefied Natural [employer] Operator Name Role Phone KLAUS STRONG, MELLISSA Unavailable Unavailable AGUSTINA DUVAL, TONIA Unavailable Unavailable Payers Payer Name Policy Type Policy Number Effective Date Expira tion Date MEDICAID [facility] [id number] Problems Condition Name Condition Details Condition Category Status Onset Date Resolution Date Last Treatment Date Treating Clinician Comments MAJOR DEPRESSV DISORDER, RECURRENT, SEVERE W PSYCH SYMPTOMS Active 10-06 00:00: 00 Allergies, Adverse Reactions, Alerts Allergy Name Allergy Type Status Severity Reaction(s) Onset Date Inactive Date Treating Clinician Comments NKA Propensity to adverse reactions Active 2022-10 00:33:3 1 Medications Ordered Medication Name Filled Medication Name Start Date Stop Date Current Medication? Ordering Clinician Indication Dosage Frequency Signature (SIG) Comments Components benztropine 1 mg tablet 04-28 00:00: 00 Yes [id number] 1 mg 2 TIMES DAILY 1 mg 2 TIMES DAILY (route: oral) Alternate Route: NONE. Med Classific ation: Central Nervous System Agents citalopram 20 mg tablet 04-28 00:00: 00 Yes [id number] 20 mg DAILY 20 mg DAILY (route: oral) Alternate Route: NONE. Med Classific ation: Central Nervous System Agents clonazepam 1 mg tablet 2018-02 00:00: 00 Yes [id number] 1 mg EVERY AM 1 mg EVER Y AM (route: oral) Alternate Route: By mouth. Med Classific ation: Central Nervous System Agents clonazepam 1 mg tablet 2018-02 00:00: 00 Yes [id number] 1 mg EVERY PM 1 mg EVER Y PM (route: oral) Alternate Route: By mouth. Med Classific ation: Central Nervous System Agents diltiazem 60 mg tablet 04-28 00:00: 00 10-20 23:59 :00 No [id number] 60 mg BEDTIME 60 mg BEDTIME (route: oral) Alternate Route: NONE. Med Classific ation: Cardiovas cular Therapy Agents diltiazem CD 240 mg capsule,ext ended release 24 hr 04-28 00:00: 00 Yes [id number] 240 capsule DAILY 240 capsule DAILY (route: oral) Alternate Route: NONE. Med Classific ation: Cardiovas cular Therapy Agents DOK 100 mg tablet 04-28 00:00: 00 Yes [id number] 100 mg DIRECTED 100 mg DIRECTED (route: oral) Med Classific ation: Gastroint estinal Therapy Agents hydroxyzine HCl 10 mg tablet 2018-02 00:00: 00 Yes [id number] 10 mg DIRECTED 10 mg DIRECTED (route: oral) Alternate Route: By mouth. Med Classific ation: Central Nervous System Agents omeprazole 20 mg capsule,del ayed release 04-28 00:00: 00 Yes [id number] 20 capsule DAILY 20 capsule DAILY (route: oral) Alternate Route: NONE. Med Classific ation: Gastroint estinal Therapy Agents oxcarbazepi ne 600 mg tablet 08-24 00:00: 00 Yes [id number] 600 mg 2 TIMES DAILY 600 mg 2 TIMES DAILY (route: oral) Alternate Route: By mouth. Med Classific ation: Central Nervous System Agents perphenazin e 4 mg tablet 2018-02 00:00: 00 10-20 23:59 :00 No [id number] 4 mg BEDTIME 4 mg BEDTIME (route: oral) Alternate Route: By mouth. Med Classific ation: Central Nervous System Agents simvastatin 40 mg tablet 04-28 00:00: 00 Yes [id number] 40 mg BEDTIME 40 mg BEDTIME (route: oral) Alternate Route: NONE. Med Classific ation: Cardiovas cular Therapy Agents PERPHENAZIN E ORAL 2018-02 00:00: 00 09-26 00:00 :00 No 4 mg1/2 tab NEEDED 4 mg1/2 tab NEEDED (route: ) Alternate Route: By mouth. Med Classific ation: CENTRAL NERVOUS SYSTEM AGENTS ABILIFY ORAL 2018-02 00:00: 00 09-27 00:00 :00 No 20 mg1 tab EVERY PM 20 mg1 tab EVERY PM (route: ) Alternate Route: By mouth. Med Classific ation: CENTRAL NERVOUS SYSTEM AGENTS Vital Signs Vital Name Observation Time Observation Value Commen ts Temperature 2024-04-09 12:01:00.000 98.1 [degF] Temperature 2024-04-06 12:53:00.000 97.5 [degF] Temperature 2024-04-06 12:11:00.000 98 [degF] Temperature 2024-04-03 21:32:00.000 97.5 [degF] Temperature 2024-03-30 13:42:00.000 97.5 [degF] Temperature 2024-03-28 12:42:00.000 97.4 [degF] Temperature 2024-03-27 22:33:00.000 97.5 [degF] Temperature 2024-03-23 17:02:00.000 98 [degF] Temperature 2024-03-23 14:55:00.000 98 [degF] Temperature 2024-03-20 21:52:00.000 97.6 [degF] Temperature 2024-03-16 14:34:00.000 98.1 [degF] Temperature 2024-03-14 22:23:00.000 98.1 [degF] Temperature 2024-03-11 18:13:00.000 98.2 [degF] Temperature 2024-03-09 15:41:00.000 97.5 [degF] Temperature 2024-03-07 11:59:00.000 98.1 [degF] Temperature 2024-03-06 23:25:00.000 98.1 [degF] Temperature 2024-03-04 17:04:00.000 97.8 [degF] Temperature 2024-02-29 12:19:00.000 97.5 [degF] Temperature 2024-02-28 22:22:00.000 97.9 [degF] Temperature 2024-02-24 21:01:00.000 97.6 [degF] Plan of Treatment Planned Activity Planned Date Details Comments Future Scheduled Test SKILLED NU RSE TO EVALUATE PATIENT, IDENTIFY PRIMARY AND CO-MORBID CONDITIONS CODED PER CODING GUIDELINES, AND DEVELOP PATIENT SPECIFIC PLAN OF CARE THAT INCLUDES PATIENT GOAL FOR HOME HEALTH. [code = SKILLED NURSE TO EVALUATE PATIENT, IDENTIFY PRIMARY AND CO-MORBID CONDITIONS CODED PER CODING GUIDELINES, AND DEVELOP PATIENT SPECIFIC PLAN OF CARE THAT INCLUDES PATIENT GOAL FOR HOME HEALTH.] Future Scheduled Test SKILLED NU RSE FOR MEDICATION ADMINISTRATION PER MEDICATION LIST TO BE PERFORMED THREE TIMES A WEEK [code = SKILLED NURSE FOR MEDICATION ADMINISTRATION PER MEDICATION LIST TO BE PERFORMED THREE TIMES A WEEK ] Future Scheduled Test SKILLED NU RSE TO PRE-POUR MEDICATION PER MEDICATION LIST TILL NEXT FDC VISIT [code = SKILLED NURSE TO PRE-POUR MEDICATION PER MEDICATION LIST TILL NEXT FDC VISIT ] Future Scheduled Test PATIENT MA Y HAVE ONE SET OF EMERGENCY MEDICATION NOT TO BE PRE-POURED ANY SOONER THAN 24 HOURS BEFORE SEVERE INCLEMENT WEATHER OR EMERGENT EVENT AND FOLLOWING SKILLED NURSE EVALUATION OF PATIENT SAFETY. [code = PATIENT MAY HAVE ONE SET OF EMERGENCY MEDICATION NOT TO BE PRE-POURED ANY SOONER THAN 24 HOURS BEFORE SEVERE INCLEMENT WEATHER OR EMERGENT EVENT AND FOLLOWING SKILLED NURSE EVALUATION OF PATIENT SAFETY.] Future Scheduled Test SKILLED NU RSE TO O/A OF PATIENTS MENTAL/BEHAVIORAL STATUS, ASSESS VITAL SIGNS WEEKLY ALLOW 2 PRNS FOR MEDICATION MANAGEMENT. [code = SKILLED NURSE TO O/A OF PATIENTS MENTAL/BEHAVIORAL STATUS, ASSESS VITAL SIGNS WEEKLY ALLOW 2 PRNS FOR MEDICATION MANAGEMENT.] Future Scheduled Test SKILLED NU RSE FOR O/A OF GENERAL HEALTH STATUS OF PAIN, CARDIAC, RESPIRATORY, GASTROINTESTINAL, GENITOURINARY, SKIN, NEUROLOGIC, ENDOCRINE SYSTEMS TO IDENTIFY CHANGES ASSOCIATED WITH EXACERBATION FOR EARLY INTERVENTION OF COMPLICATIONS WEEKLY. [code = SKILLED NURSE FOR O/A OF GENERAL HEALTH STATUS OF PAIN, CARDIAC, RESPIRATORY, GASTROINTESTINAL, GENITOURINARY, SKIN, NEUROLOGIC, ENDOCRINE SYSTEMS TO IDENTIFY CHANGES ASSOCIATED WITH EXACERBATION FOR EARLY INTERVENTION OF COMPLICATIONS WEEKLY.] Future Scheduled Test SKILLED NU RSE TO ADMINISTER MEDICATIONS THREE TIMES A WEEK AND PRE-POUR MEDICATIONS TILL NEXT FDC PER MEDICATION LIST. [code = SKILLED NURSE TO ADMINISTER MEDICATIONS THREE TIMES A WEEK AND PRE-POUR MEDICATIONS TILL NEXT FDC PER MEDICATION LIST.] Future Scheduled Test SKILLED NU RSE FOR O/A AND SKILLED TEACHING RELATED TO MANAGEMENT OF DEPRESSIVE SYMPTOMS AND/OR DEPRESSION. SN TO REPORT SIGNIFICANT CHANGE IN DEPRESSIVE SYMPTOMS TO CLINICAL PROVIDER FOR EARLY INTERVENTION. [code = SKILLED NURSE FOR O/A AND SKILLED TEACHING RELATED TO MANAGEMENT OF DEPRESSIVE SYMPTOMS AND/OR DEPRESSION. SN TO REPORT SIGNIFICANT CHANGE IN DEPRESSIVE SYMPTOMS TO CLINICAL PROVIDER FOR EARLY INTERVENTION.] Future Scheduled Test SKILLED NU RSE TO PERFORM HOME SAFETY AND FALL ASSESSMENT AND PROVIDE INSTRUCTION TO IMPLEMENT HOME SAFETY AND FALL PREVENTION STRATEGIES. [code = SKILLED NURSE TO PERFORM HOME SAFETY AND FALL ASSESSMENT AND PROVIDE INSTRUCTION TO IMPLEMENT HOME SAFETY AND FALL PREVENTION STRATEGIES.] Future Scheduled Test SKILLED NU RSE TO REVIEW PATIENT MEDICATIONS. INSTRUCT PATIENT/CAREGIVER ON MONITORING OF EFFECTIVENESS, ADVERSE DRUG REACTIONS, SIDE EFFECTS OF ALL MEDICATIONS (PRESCRIPTION/-OTC), AND HOW AND WHEN TO REPORT PROBLEMS. [code = SKILLED NURSE TO REVIEW PATIENT MEDICATIONS. INSTRUCT PATIENT/CAREGIVER ON MONITORING OF EFFECTIVENESS, ADVERSE DRUG REACTIONS, SIDE EFFECTS OF ALL MEDICATIONS (PRESCRIPTION/-OTC), AND HOW AND WHEN TO REPORT PROBLEMS.] Future Scheduled Test SKILLED NU RSE FOR O/A OF CLIENT'S SOCIAL ISOLATION AND PROVIDE ASSISTANCE TO CLIENT IN DEVELOPMENT OF PLANNED ACTIVITIES [code = SKILLED NURSE FOR O/A OF CLIENT'S SOCIAL ISOLATION AND PROVIDE ASSISTANCE TO CLIENT IN DEVELOPMENT OF PLANNED ACTIVITIES] Future Scheduled Test SKILLED NU RSE TO ASSESS PATIENTS PSYCHOSOCIAL STATUS TO IDENTIFY POTENTIAL ISSUES THAT MAY COMPLICATE THE PROVISION OF THE PLAN OF CARE INCLUDING THE PATIENTS ABILITY TO ACCESS COMMUNITY RESOURCES AND PSYCHOSOCIAL SUPPORT SERVICES. [code = SKILLED NURSE TO ASSESS PATIENTS PSYCHOSOCIAL STATUS TO IDENTIFY POTENTIAL ISSUES THAT MAY COMPLICATE THE PROVISION OF THE PLAN OF CARE INCLUDING THE PATIENTS ABILITY TO ACCESS COMMUNITY RESOURCES AND PSYCHOSOCIAL SUPPORT SERVICES.] Future Scheduled Test SKILLED NU RSE WILL MAINTAIN SITUATIONAL AWARENESS FOR SAFETY AND WILL NOTIFY CLINICAL MEMBERSHIP ADVISOR AND PHYSICIAN/PROVIDER WITH ANY CHANGE IN CONDITION. [code = SKILLED NURSE WILL MAINTAIN SITUATIONAL AWARENESS FOR SAFETY AND WILL NOTIFY CLINICAL MEMBERSHIP ADVISOR AND PHYSICIAN/PROVIDER WITH ANY CHANGE IN CONDITION.] Future Scheduled Test SKILLED NU RSE TO PROVIDE INSTRUCTION TO PATIENT/CAREGIVER RELATED TO DISCHARGE PLANNING. [code = SKILLED NURSE TO PROVIDE INSTRUCTION TO PATIENT/CAREGIVER RELATED TO DISCHARGE PLANNING.] Goal 2022-12-26 Patient Goal - TAKING MY MED S Goal 2023-02-23 Patient Goal - TAKING MY MED S Goal 2023-04-24 Patient Goal - TAKING MY MED S Goal 2023-06-24 Patient Goal - TAKING MY MED S Goal 2023-08-24 Patient Goal - TAKING MY MED S Goal 2023-10-21 Patient Goal - TAKING MY MED S Goal 2023-12-21 Patient Goal - TAKING MY MED S Goal 2024-02-19 Patient Goal - TAKING MY MED S Goal Patient Goal - TAKING MY MED S Goal Provider Goal - A PLAN OF CARE WILL BE ESTABLISHED THAT MEETS PATIENT'S FDC NEEDS AND INCLUDES PATIENT GOAL FOR HOME HEALTH. Goal Provider Goal - PATIENT/CAREGIVER WILL VERBALIZE/DEMONSTRATE EFFECTIVE HOME SAFETY AND FALL PREVENTION STRATEGIES THROUGHOUT CERTIFICATION PERIOD. Goal Provider Goal - PATIENT/CAREGIVER WILL VERBALIZE UNDERSTANDING OF DISCHARGE PLANNING INSTRUCTIONS BY DATE OF DISCHARGE. Goal Provider Goal - PATIENT WILL REMAIN SAFE IN THE COMMUNITY AND WILL BE FREE OF DANGER TO SELF AND OTHERS THROUGHOUT THE CERTIFICATION PERIOD. Goal Provider Goal - PATIENT/CAREGIVER WILL VERBALIZE UNDERSTANDING OF EDUCATION PROVIDED ON MEDICATIONS BY THE END OF THE CERTIFICATION PERIOD. Goal Provider Goal - PATIENT WILL COMPLY WITH MEDICATION WHEN SKILLED NURSE ADMINISTERS AND PRE-POURS MEDICATION THROUGHOUT CERTIFICATION PERIOD. Goal Provider Goal - PATIENT WILL COMPLY WITH MEDICATION WHEN NURSE ADMINISTERS THROUGHOUT CERTIFICATION PERIOD. Goal Provider Goal - PATIENT WILL COMPLY WITH MEDICATION WHEN SKILLED NURSE PRE-POURS MEDICATION THROUGHOUT CERTIFICATION PERIOD. Goal Provider Goal - PATIENT WILL REMAIN SAFE WITHOUT DECOMPENSATION IN DEPRESSIVE CONDITION, WHILE MAINTAINING OPTIMAL LEVEL OF MENTAL HEALTH AND WELL BEING THROUGHOUT CERTIFICATION PERIOD. Goal Provider Goal - PSYCHOSOCIAL NEEDS WILL BE IDENTIFIED AND PLAN IMPLEMENTED TO MINIMIZE RISK THROUGHOUT CERTIFICATION PERIOD. Goal Provider Goal - PATIENT WILL DEMONSTRATE AN INCREASED INTEREST IN SOCIALIZATION AND ACTIVITIES BY THE END OF THE CERTIFICATION PERIOD. Encounters Start Date/Time End Date/Time Encounter Type Admission Type Attending [facility] Care Department Encounter ID Discharge Date Discharge Status Discharge Condition Discharge Reason Percent Goals Met 2022-10-31 00:00:00 2024-04-22 00:00:00 Outpatient RECERTIFIC ATTONIA MARTIN [facility] [id number]
--- OUTSIDE RECORDS SUMMARY | 2024-04-12 09:22 | XMS_ITS ---
Author Organization Adam Warren III, MD Address [address] [place] [id number] Care Team Providers Care Benefits Specialist Name Role Phone Adam Warren Primary Care Provider [phone] Allergies Allergen (clinical drug ingredient) Drug/Non Drug Allergy documented on EMR Reaction Allergy Type Onset Date Status No Known Drug Allergy Unknown Drug Allergy Active REASON FOR VISIT Annual Exam Medications Medication SIG (Take, Route, Frequency, Duration) Notes Start Date End Date Status Benztropine Mesylate 1 MG TAKE 1 TABLET BY MOUTH TWICE DAILY Oral Active clonazePAM 1 MG TAKE 1 TABLET BY LAYLA TH THREE TIMES DAILY NEEDED FOR SEVERE ANXIETY / PANIC ATTACK Oral Active Citalopram Hydrobromide 20 MG TAKE 1 TABLET BY MOUTH EVERY DAY AT BEDTIME Oral Active Simvastatin 40 MG TAKE 1 TABLET AT BEDTIME Active Omeprazole 20 MG 1 capsule Orally Onc e a day 06/03/2017 Active ProAir HFA 108 (90 Base) MCG/ACT 2 puffs as needed Inhalation four times a day 01/07/2017 Active OXcarbazepine 600 MG 1 tablet Orally Twi ce a day Active dilTIAZem HCl ER Beads 240 mg TAKE 1 CAPSULE BY MOUTH DAILY Active Docusate Sodium 100 MG 1 capsule as need ed Orally Once a day 10/16/2016 Active hydrOXYzine HCl 10 MG Orally Active Social History Tobacco Use: Social History Observation Description Date Details (start date - stop date) Current Smoker NA - NA Sex Assigned At : Social History Observation Description Sex Assigned At Female Tobacco Use/Smoking Question Answer Notes Patient is a current smoker How often do you smoke cigarettes? every day How many cigarettes a day do you smoke? 5 or les s How soon after you wake up d o you smoke your first cigarette? within 5 minutes Are you interested in quitting? Thinking about q uitting Additional Findings: Tobacco User Light cigarett e smoker ((1-9 cigs/day) Encounters Encounter Location Date Provider Diagnosis Adam Warren III, MD [address] [place] [address] [address] [place] [id number] 04/12/2024 Adam Warren Severe episode of recurrent major depressive disorder, with psychotic features F33.3 Assessments Encounter Date Diagnosis (ICD Code) Assessment Notes Treatment Notes Treatment Clinical Notes 04/12/2024 Severe episode of recurrent major depressive disorder, with psychotic features (ICD-10 - F33.3) Plan Of Treatment Medication Medication Name Sig Start Date Stop Date Notes Benztropine Mesylate 1 MG TAKE 1 TABLET BY MOUTH TWICE DAILY Oral clonazePAM 1 MG TAKE 1 TABLET BY LAYLA TH THREE TIMES DAILY NEEDED FOR SEVERE ANXIETY / PANIC ATTACK Oral Citalopram Hydrobromide 20 MG TAKE 1 TAB LET BY MOUTH EVERY DAY AT BEDTIME Oral Simvastatin 40 MG TAKE 1 TABLET AT BEDTIME Omeprazole 20 MG 1 capsule Orally Once a day 06/03/2017 ProAir HFA 108 (90 Base) MCG/ACT 2 puffs as needed Inhalation four times a day 01/07/2017 OXcarbazepine 600 MG 1 tablet Orally Twice a day dilTIAZem HCl ER Beads 240 mg TAKE 1 CAP BERNARDO BY MOUTH DAILY Docusate Sodium 100 MG 1 capsule as need ed Orally Once a day 10/16/2016 hydrOXYzine HCl 10 MG Orally Next Appt Details Provider Name:Adam Warren, 04/12/2024 02:00:00 PM, [address] [place] [address] [address], [place], [address], Progress Notes * Shellie BALLDOB: (58 yo F)Acc No.[id number]:04/12/2024 Progress Notes Patient:?NETO ALTAMIRANO Ma leora Provider:?Adam Warren MD :1965???Age:58 Y???Sex:Female D ate:04/12/2024 Address:[address] [place] [address], , [id number] Subjective: * Chief Complaints: * ???1. Annual Exam. * HPI: ???COVID-19 Screening:?Questions?Have you had any new onset fever, chills, cough, congestion, sore throat, shortness of breath, muscle aches??No * ROS:?General/Constitutional:?pain?only normal aches and pains.?Chills?denies.?Fatigue?admits.?Fever?denies.?ENT:?Decreased hearing?denies.?Respiratory:?Cough?denies.?Cardiovascular:?Chest pain with exertion?denies.?Dyspnea on exertion?denies.?Shortness of breath?denies.?Gastrointestinal:?Constipation?denies.?Decreased appetite?denies.?Diarrhea?denies.?Heartburn?denies.?Nausea?denies.?Rectal bleeding?denies.?Vomiting?denies.?Hematology:?bruising?denies.?petechiae?denies.?Swollen glands?none have been noted.?Genitourinary:?Frequent urination?denies.?Musculoskeletal:?Muscle aches?denies.?Painful joints?denies.?Sciatica?denies.?Weakness?denies.?Skin:?Itching?denies.?Rash?denies.?Skin lesion(s)?denies.?Neurologic:?Difficulty speaking?denies.?Dizziness?denies.?Headache?denies.?Low back pain?denies.?Psychiatric:?Depressed mood?denies.? * Medical History:?Psychotic/d epression/sucidal, Panic/anxiety, Mild sleep apenia, Macrocytic anemia, Uterine fibroids/ resolved right ovarian cyst, Vaginitis, Hematuria 04/30, Hypertension, Hyperlipidemia, Costochondritis 10/01. * Surgical History:?multiple p sychiatric admissions for psychotic suicidal depression . * Hospitalization/Major Diagno stic Procedure:?Vertigo 03/2019. * Family History:?Father: dece ased 65 yrs, alcoholism.?Mother: 63 yrs, stroke.?3 son(s) - healthy. .? * Social History:?Tobacco Use:?Tobacco Use/Smoking?Patient is a?current smoker ?How often do you smoke cigarettes??every day ?How many cigarettes a day do you smoke??5 or less ?How soon after you wake up do you smoke your first cigarette??within 5 minutes ?Are you interested in quitting??Thinking about quitting ?Additional Findings: Tobacco User?Light cigarette smoker ((1-9 cigs/day) ???She has been to [place] for 8 years and lives locally. She is not working. She was born in [place]. * Medications:?Taking dilTIAZe m HCl ER Beads 240 mg Capsule Extended Release 24 Hour TAKE 1 CAPSULE BY MOUTH DAILY , Taking OXcarbazepine 600 MG Tablet 1 tablet Orally Twice a day , Taking hydrOXYzine HCl 10 MG Tablet Orally , Taking Docusate Sodium 100 MG Capsule 1 capsule as needed Orally Once a day , Taking Omeprazole 20 MG Capsule Delayed Release 1 capsule Orally Once a day , Taking Simvastatin 40 MG Tablet TAKE 1 TABLET AT BEDTIME , Taking clonazePAM 1 MG Tablet TAKE 1 TABLET BY MOUTH THREE TIMES DAILY NEEDED FOR SEVERE ANXIETY / PANIC ATTACK Oral , Taking Benztropine Mesylate 1 MG Tablet TAKE 1 TABLET BY MOUTH TWICE DAILY Oral , Taking Citalopram Hydrobromide 20 MG Tablet TAKE 1 TABLET BY MOUTH EVERY DAY AT BEDTIME Oral , Taking ProAir HFA 108 (90 Base) MCG/ACT Aerosol Solution 2 puffs as needed Inhalation four times a day , Medication List reviewed and reconciled with the patient * Allergies:?No Known Drug All ergy. Objective: * Vitals:? * Examination: ???General Examination: ?GENERAL APPEARANCE:?pleasant, well nourished, well developed, in no acute distress, calm and relaxed.?HEAD:?atraumatic, normocephalic.?EYES:?eomi, perrla, anicteric, conjugate.?EARS:?normal.?NOSE:?septum intact.?ORAL CAVITY:?normal, unremarkable.?NECK/THYROID:?no jugular venous distention, no carotid bruit, thyroid normal.?LYMPH NODES:?no enlarged lymph nodes,spleen normal.?SKIN:?no suspicious lesions, anicteric.?HEART:?no clicks, gallops, murmurs, or rubs, regular rhythm, S1, S2 normal, no s3, or vascular bruits.?LUNGS:?clear to auscultation .?BREASTS:??no masses palpable bilaterally.?ABDOMEN:?bowel sounds normal, no ascites, no organomegaly, no mass.?RECTAL EXAM:?not examined.?MUSCULOSKELETAL:?extremities unremarkable, no clubbing, cyanosis or edema.?PERIPHERAL PULSES:?normal.?NEUROLOGIC:?alert and oriented, cranial nerves 2-12 grossly intact, deep tendon reflexes 2+ symmetrical, motor strength normal upper and lower extremities, sensory exam intact.?PSYCH:?alert, oriented.? Assessment: * Assessment: 1.?Severe episode of recurre nt major depressive disorder, with psychotic features - F33.3??? Plan: * Treatment: 2.?Others? Continue dilTIAZem HCl ER Beads Capsule Extended Release 24 Hour, 240 mg, TAKE 1 CAPSULE BY MOUTH DAILY;?Continue OXcarbazepine Tablet, 600 MG, 1 tablet, Orally, Twice a day;?Continue clonazePAM Tablet, 1 MG, TAKE 1 TABLET BY MOUTH THREE TIMES DAILY NEEDED FOR SEVERE ANXIETY / PANIC ATTACK, Oral;?Continue Benztropine Mesylate Tablet, 1 MG, TAKE 1 TABLET BY MOUTH TWICE DAILY, Oral;?Continue Citalopram Hydrobromide Tablet, 20 MG, TAKE 1 TABLET BY MOUTH EVERY DAY AT BEDTIME, Oral.?? * Images: * The named appointment provid er may or may not be the originator of this progress note, and it is not deemed complete until electronically signed by the appointment provider. Sign off status: Pending * Provider:?Adam Warren MD Date:?03/26 Generated for Jonelle ramachandran/Cipriano/Samanthaitting on:?04/12/2024 09:22 AM EST History and Physical Notes * HPI (History of Present Illness) Category Sub-Category Detail Notes COVID-19 Screening Questions Have you had any new onset fever, chills, cough, congestion, sore throat, shortness of breath, muscle aches?: No Examination Category Sub-Category Detail Notes General Examination GENERAL APPEARANCE: pleasant , well nourished, well developed, in no acute distress, calm and relaxed HEAD: atraumatic, normocep halic EYES: eomi, perrla, anicte goldie, conjugate EARS: normal NOSE: septum intact NECK/THYROID: no jugular venous di stention, no carotid bruit, thyroid normal HEART: no clicks, gallops, murmurs, or rubs, regular rhythm, S1, S2 normal, no s3, or vascular bruits LUNGS: clear to auscultatio n ABDOMEN: bowel sounds normal, no ascites, no organomegaly, no mass NEUROLOGIC: alert and oriented, cranial nerves 2-12 grossly intact, deep tendon reflexes 2+ symmetrical, motor strength normal upper and lower extremities, sensory exam intact SKIN: no suspicious lesion s, anicteric PERIPHERAL PULSES: normal BREASTS: no masses palpable b ilaterally MUSCULOSKELETAL: extremities unremark able, no clubbing, cyanosis or edema LYMPH NODES: no enlarged lymph no gualberto,spleen normal RECTAL EXAM: not examined PSYCH: alert, oriented ORAL CAVITY: normal, unremarkable
--- OUTSIDE RECORDS SUMMARY | 2024-04-12 09:23 | XMS_ITS ---
Author Organization Adam Warren III, MD Address [address] [place] [address] [place] [address] Care Team Providers Care Pulley Man Name Role Phone Adam Warren Primary Care Provider [phone] Allergies Allergen (clinical drug ingredient) Drug/Non Drug Allergy documented on EMR Reaction Allergy Type Onset Date Status No Known Drug Allergy Unknown Drug Allergy Active REASON FOR VISIT Hypertension, Major depressive disorder, Sleep apnea, Hyperlipidemia, Tobacco dependence Medications Medication SIG (Take, Route, Frequency, Duration) Notes Start Date End Date Status dilTIAZem HCl ER Beads 240 mg TAKE 1 CAPSULE BY MOUTH DAILY Active Omeprazole 20 MG 1 capsule Orally Onc e a day 06/03/2017 Active Cartia XT 240 MG 1 capsule Orally Onc e a day 07/27/2017 Active Simvastatin 40 MG TAKE 1 TABLET AT BEDTIME Active Myrbetriq 50 MG 1 tablet Orally Once a day Active ProAir HFA 108 (90 Base) MCG/ACT 2 puffs as needed Inhalation four times a day 01/07/2017 Active Docusate Sodium 100 MG 1 capsule as need ed Orally Once a day 10/16/2016 Active hydrOXYzine HCl 10 MG Orally Active KlonoPIN 0.5 MG 1 tablet Orally Twic e a day Active CeleXA 20 MG 1 tablet Orally Once a day Active OXcarbazepine 600 mg TAKE 1 TABLET BY [facility] THREE TIMES DAILY FOR 7 DAYS Active Cogentin 1 MG/ML 1 ml Injection Once a day Active Perphenazine 4 MG 1 tablet Orally Once a day Active KlonoPIN 0.5 MG 1 tablet Orally twic e a day 08/28/2023 Active Social History Tobacco Use: Social History [...] User Light cigarett e smoker ((1-9 cigs/day) Vital Signs Height 61 in 12/08/2023 Weight 134 lbs 12/08/2023 BMI 25.32 kg/m2 12/08/2023 Encounters Encounter Location Date Provider Diagnosis Adam Warren III, MD [address] [place] [address] DR [place], [place] [id number] 12/08/2023 Adam Warren Severe episode of recurrent major depressive disorder, with psychotic features F33.3 ; Hyperlipidemia E78.5 ; Overweight E66.3 ; Panic disorder without agoraphobia F41.0 ; Sleep apnea, unspecified sleep apnea type G47.30 ; Depression F32.9 ; Anemia D64.9 ; Cerebellar ataxia G11.9 and Tobacco dependence F17.200 Assessments Encounter Date Diagnosis (ICD Code) Assessment Notes Treat ment Notes Treatment Clinical Notes 12/08/2023 Severe episode of recurrent major depressive disorder, with psychotic features (ICD-10 - F33.3) Her severe depression is well controlled. She is not suicidal at this time and has no thoughts of self-harm. She has been doing well lately. She is compliant with her psychiatric regimen. 12/08/2023 Hyperlipidemia (ICD-10 - E78.5) Her lipids are currently stable and she is losing weight. She will continue on the current diet without change. No change in her medications was made. 12/08/2023 Overweight (ICD-10 - E66.3) She is very slightly overweight and has lost 3 pounds. We discussed her diet and nutrition. We reviewed her weight loss strategy. She will continue to lose weight until her body mass index is in the center of the normal range. 12/08/2023 Panic disorder without agoraphobia (ICD-10 - F41.0) She continues on her current medication. The problem is well controlled at this time. 12/08/2023 Sleep apnea, unspecified sleep apnea type (ICD-10 - G47.30) She is sleeping well. She has CPAP. No change in her regimen was made today. Her family says she is not somnolent during the daytime.She is not using a CPAP machine at this time as she found it difficult to use and not effective. 12/08/2023 Depression (ICD-10 - F32.9) Her depression is stable and controlled and she seems to be compliant with her medications. She did not sound suicidally depressed today. I detected no psychotic thinking. She will continue on current medications. Her family will call me at once if she becomes disoriented or suicidal. 12/08/2023 Anemia (ICD-10 - D64.9) he denies any recent bleeding. A CBC has been ordered prior to her next visit. 12/08/2023 Cerebellar ataxia (ICD-10 - G11.9) She and her family say that the ataxia has resolved. She is now able to walk safely. The CT scan of the brain showed no significant abnormalities. 12/08/2023 Tobacco dependence (ICD-10 - F17.200) She reports smoking resumption. We discussed several issues of abstinence and made a plan to cut down by one cigarette per day and eventually stop. Plan Of Treatment Medication Medication Name Sig Start Date Stop Date Notes dilTIAZem HCl ER Beads 240 mg TAKE 1 CAP BERNARDO BY MOUTH DAILY Omeprazole 20 MG 1 capsule Orally Once a day 06/03/2017 Cartia XT 240 MG 1 capsule Orally Once a day 07/27/2017 Simvastatin 40 MG TAKE 1 TABLET AT BEDTIME Myrbetriq 50 MG 1 tablet Orally Once a day ProAir HFA 108 (90 Base) MCG/ACT 2 puffs as needed Inhalation four times a day 01/07/2017 Docusate Sodium 100 MG 1 capsule as need ed Orally Once a day 10/16/2016 hydrOXYzine HCl 10 MG Orally KlonoPIN 0.5 MG 1 tablet Orally Twice a day CeleXA 20 MG 1 tablet Orally Once a day OXcarbazepine 600 mg TAKE 1 TABLET BY [facility] THREE TIMES DAILY FOR 7 DAYS Cogentin 1 MG/ML 1 ml Injection Once a day Perphenazine 4 MG 1 tablet Orally Once a day KlonoPIN 0.5 MG 1 tablet Orally twice a day 08/28/2023 Pending Test Test Name Order Date PROFILE, FASTING (COMPREHENSIVE METABOLI C) 12/08/2023 CBC WITH AUTO DIFF 12/08/2023 Lipid Panel 12/08/2023 Next Appt Details Follow Up: As Scheduled, Baker son: OV, Annual Exam Provider Name:Adam Hoffmanrne, 04/12/2024 02:00:00 PM, [address] [place] [address] DR, [address], [place], [id number], Progress Notes * NETO Shellie ALTAMIRANODOB: (58 yo F)Acc No.[id number]:12/08/2023 Patient:?NETO ALTAMIRANOSourav leora Provider:?Adam Warren MD :1965???Age:58 Y???Sex:Female D ate:12/08/2023 Address:[address] [place] [address], [place]-[id number] Subjective: * Chief Complaints: * ???HypertensionMajor depress kait disorderSleep apneaHyperlipidemiaTobacco dependence * HPI: ???:?This telehealth visit took place over 22 minutes with the patient at home and me in my office.? She gave consent for billing. She was unable to come to the office today because of transportation issues.? Her depression is stable and she has been compliant with all of her medications.? She has been well since her last visit.? She has no new complaints.? She denies any chest pain or shortness of breath or bleeding.She is using CPAP.A mammogram done October 02, 2023 showed no evidence of malignancy.She is up-to-date with psychiatry.Comprehensive blood work was available today.? As was reviewed with her and her in detail. ?Telehealth?Location of provider rendering services:?{...} [address] [place] [address] ?Location of patient:?address listed in demographics for today's visit ?Patient identification confirmed using:?Name, ?Telehealth method:?Telephone only. Patient not visible to care provider. ?Consent:?Patient verbally consented to treatment, Patient verbally consented to billing insurance company, Patient informed of any privacy concerns related to method of visit ?Total time spent with patient (mins)?22 * ROS:?General/Constitutional:?pain?only normal aches and pains.?Chills?denies.?Fatigue?admits.?Fever?denies.?ENT:?Decreased hearing?mild.?Respiratory:?Cough?non-productive.?Cardiovascular:?Chest pain with exertion?denies.?Dyspnea on exertion?denies.?Shortness of breath?denies.?Gastrointestinal:?Constipation?occasional.?Decreased appetite?denies.?Diarrhea?denies.?Heartburn?denies.?Nausea?denies.?Rectal bleeding?denies.?Vomiting?denies.?Hematology:?bruising?denies.?petechiae?denies.?Swollen glands?none have been noted.?Genitourinary:?Frequent urination?at night.?Musculoskeletal:?Muscle aches?denies.?Painful joints?denies.?Sciatica?denies.?Weakness?denies.?Skin:?Itching?denies.?Rash?denies.?Skin lesion(s)?denies.?Neurologic:?Difficulty speaking?denies.?Dizziness?denies.?Headache?denies.?Low back pain?denies.?Psychiatric:?Depressed mood?which is moderate.? * Medical History:? * Surgical History:?multiple p sychiatric admissions for psychotic suicidal depression * Hospitalization/Major Diagno stic Procedure:?Vertigo 03/2019 * Family History:?Father: dece ased 65 yrs, [...] is not working. She was born in [place]. * Medications:?TakingdilTIAZem HCl ER Beads 240 mg Capsule Extended Release 24 Hour TAKE 1 CAPSULE BY MOUTH DAILY OXcarbazepine 600 mg Tablet TAKE 1 TABLET BY MOUTH THREE TIMES DAILY FOR 7 DAYS KlonoPIN 0.5 MG Tablet 1 tablet Orally [...] capsule as needed Orally Once a day ProAir HFA 108 (90 Base) MCG/ACT Aerosol Solution 2 puffs as needed Inhalation four times a day Cartia XT 240 MG Capsule Extended Release 24 Hour 1 capsule Orally Once a day Omeprazole 20 MG Capsule Delayed Release 1 capsule Orally Once a day Myrbetriq 50 MG Tablet Extended Release 24 Hour 1 tablet Orally Once a day Simvastatin 40 MG Tablet TAKE 1 TABLET AT BEDTIME Medication List reviewed and reconciled with the patientTaking dilTIAZem HCl ER Beads 240 mg Capsule Extended Release 24 Hour TAKE 1 CAPSULE BY MOUTH DAILY Taking OXcarbazepine 600 mg Tablet TAKE 1 TABLET BY MOUTH THREE TIMES DAILY FOR 7 DAYS Taking KlonoPIN 0.5 MG Tablet 1 tablet Orally twice a day Taking Perphenazine 4 MG Tablet 1 tablet Orally Once a day Taking Cogentin 1 MG/ML Solution 1 ml Injection Once a day Taking CeleXA 20 MG Tablet 1 tablet Orally Once a day Taking KlonoPIN 0.5 MG Tablet 1 tablet Orally Twice a day Taking hydrOXYzine HCl 10 MG Tablet Orally Taking Docusate Sodium 100 MG Capsule 1 capsule as needed Orally Once a day Taking ProAir HFA 108 (90 Base) MCG/ACT Aerosol Solution 2 puffs as needed Inhalation four times a day Taking Cartia XT 240 MG Capsule Extended Release 24 Hour 1 capsule Orally Once a day Taking Omeprazole 20 MG Capsule Delayed Release 1 capsule Orally Once a day Taking Myrbetriq 50 MG Tablet Extended Release 24 Hour 1 tablet Orally Once a day Taking Simvastatin 40 MG Tablet TAKE 1 TABLET AT BEDTIME Medication List reviewed and reconciled with the patient * Allergies:?No Known Drug All ergyno[Allergies Verified] Objective: * Vitals:?Ht: 61, Wt: 134, BMI :25.32, Ht-cm: 154.94, Wt-k.78. * ???Past Orders: ???Imaging:MM tomosynthesis screening BI (Order Date - 10/02/2023) (Performed Date - 10/02/2023) Lab:Lipid Panel * Collection Date 11/19/2023 05/04/2023 01/01/2023 Collection Time 08:56 AM 10:40 AM 09:38 AM Order Date 11/19/2023 05/04/2023 01/01/2023 Triglycerides 67 (Ref Range: <150 mg/dL) 80 (Ref Range: <150 mg/dL) 73 (Ref Range: <150 mg/dL) Cholesterol 190 (Ref Range: <200 mg/dL) 170 (Ref Range: <200 mg/dL) 163 (Ref Range: <200 mg/dL) LDL Cholesterol Calculated 119?H (Ref Range: <100 mg/dL) 88 (Ref Range: <100 mg/dL) 93 (Ref Range: <100 mg/dL) HDL Cholesterol 58 (Ref Range: >40 mg/dL) 66 (Ref Range: >40 mg/dL) 56 (Ref Range: >40 mg/dL) * Lab:Comprehensive Met. Panel * Collection Date 11/19/2023 10/05/2022 10/05/2022 Collection Time 08:56 AM 11:29 PM 09:18 PM Order Date 11/19/2023 10/05/2022 10/05/2022 Sodium 135 (Ref Range: 135-145 mmol/L) 127?L (Ref Range: 135-145 mmol/L) 125?L (Ref Range: 135-145 mmol/L) Bilirubin Total 0.3 (Ref Range: 0.0-1.0 mg/dL) 0.3 (Ref Range: 0.0-1.0 mg/dL) 0.3 (Ref Range: 0.0-1.0 mg/dL) Aspartate Amino Transferase 18 (Ref Range: 5-31 U/L) 30 (Ref Range: 5-31 U/L) 33?H (Ref Range: 5-31 U/L) Alanine Aminotransferase 11 (Ref Range: 0-31 U/L) 21 (Ref Range: 0-31 U/L) 22 (Ref Range: 0-31 U/L) Total Protein 7.5 (Ref Range: 6.5-8.0 g/dL) 6.9 (Ref Range: 6.5-8.0 g/dL) 7.2 (Ref Range: 6.5-8.0 g/dL) Albumin Level 4.3 (Ref Range: 3.5-5.0 g/dL) 4.0 (Ref Range: 3.5-5.0 g/dL) 4.2 (Ref Range: 3.5-5.0 g/dL) Alkaline Phosphatase 105 (Ref Range: 39-117 U/L) 84 (Ref Range: 39-117 U/L) 88 (Ref Range: 39-117 U/L) Potassium 4.0 (Ref Range: 3.3-5.1 mmol/L) 3.9 (Ref Range: 3.3-5.1 mmol/L) 3.6 (Ref Range: 3.3-5.1 mmol/L) Chloride 105 (Ref Range: 96-108 mmol/L) 95?L (Ref Range: 96-108 mmol/L) 94?L (Ref Range: 96-108 mmol/L) Carbon Dioxide 23 (Ref Range: 22-29 mmol/L) 23 (Ref Range: 22-29 mmol/L) 23 (Ref Range: 22-29 mmol/L) Anion Gap 11?L (Ref Range: 12-20) 13 (Ref Range: 12-20) 12 (Ref Range: 12-20) Blood Urea Nitrogen 13 (Ref Range: 9-16 mg/dL) 10 (Ref Range: 9-16 mg/dL) 10 (Ref Range: 9-16 mg/dL) Creatinine 0.81 (Ref Range: 0.5-1.4 mg/dL) 0.76 (Ref Range: 0.5-1.4 mg/dL) 0.84 (Ref Range: 0.5-1.4 mg/dL) Estimated Glomerular Filt Rate > 60 > 60 > 60 Glucose Random 99 (Ref Range: 60-115 mg/dL) 119?H (Ref Range: 60-115 mg/dL) 127?H (Ref Range: 60-115 mg/dL) Calcium 9.7 (Ref Range: 8.4-10.2 mg/dL) 8.8 (Ref Range: 8.4-10.2 mg/dL) 9.4 (Ref Range: 8.4-10.2 mg/dL) Creatinine Clr Calc Pharmacy NR 76.5 69.2 * Lab:Complete Blood Count Aut o Diff * Collection Date 11/19/2023 05/04/2023 01/01/2023 Collection Time 08:56 AM 10:40 AM 09:38 AM Order Date 11/19/2023 05/04/2023 01/01/2023 White Blood Count 4.9 (Ref Range: 4.8-10.8 X10*3/uL) 5.7 (Ref Range: 4.8-10.8 X10*3/uL) 4.2?L (Ref Range: 4.8-10.8 X10*3/uL) Red Blood Count 3.43?L (Ref Range: 4.20-5.50 X10*6/uL) 3.93?L (Ref Range: 4.20-5.50 X10*6/uL) 3.79?L (Ref Range: 4.20-5.50 X10*6/uL) Hemoglobin 11.7?L (Ref Range: 12.0-16.0 g/dl) 13.4 (Ref Range: 12.0-16.0 g/dl) 12.9 (Ref Range: 12.0-16.0 g/dl) Hematocrit 33.3?L (Ref Range: 37.0-47.0 %) 37.4 (Ref Range: 37.0-47.0 %) 35.5?L (Ref Range: 37.0-47.0 %) Mean Corpuscular Volume 97.1 (Ref Range: 80.0-98.0 fL) 95.2 (Ref Range: 80.0-98.0 fL) 93.7 (Ref Range: 80.0-98.0 fL) Mean Corpuscular Hemoglobin 34.1?H (Ref Range: 27.0-33.0 pg) 34.1?H (Ref Range: 27.0-33.0 pg) 34.0?H (Ref Range: 27.0-33.0 pg) Mean Corpuscular HGB Conc 35.1?H (Ref Range: 31.0-35.0 g/dl) 35.8?H (Ref Range: 31.0-35.0 g/dl) 36.3?H (Ref Range: 31.0-35.0 g/dl) Red Cell Distribution Width 12.8 (Ref Range: 11.0-16.0 %) 11.7 (Ref Range: 11.0-16.0 %) 11.9 (Ref Range: 11.0-16.0 %) Platelet Count 163 (Ref Range: 160-400 X10*3/uL) 177 (Ref Range: 160-400 X10*3/uL) 166 (Ref Range: 160-400 X10*3/uL) Mean Platelet Volume 10.2 (Ref Range: 9.4-12.3 fL) 9.9 (Ref Range: 9.4-12.3 fL) 9.1?L (Ref Range: 9.4-12.3 fL) Neutrophils Percent Auto 50.4 (Ref Range: 45-73 %) 55.5 (Ref Range: 45-73 %) 56.3 (Ref Range: 45-73 %) Imm Gran Pct Auto 0.2 (Ref Range: 0.0-0.4 %) 0.3 (Ref Range: 0.0-0.4 %) 0.2 (Ref Range: 0.0-0.4 %) Lymphocytes Percent Auto 36.5 (Ref Range: 20-40 %) 32.7 (Ref Range: 20-40 %) 28.6 (Ref Range: 20-40 %) Monocytes Percent Auto 10.3 (Ref Range: 2-11 %) 10.0 (Ref Range: 2-11 %) 14.2?H (Ref Range: 2-11 %) Eosinophils Percent Auto 2.2 (Ref Range: 0-4 %) 1.2 (Ref Range: 0-4 %) 0.5 (Ref Range: 0-4 %) Basophils Percent Auto 0.4 (Ref Range: 0-2 %) 0.3 (Ref Range: 0-2 %) 0.2 (Ref Range: 0-2 %) NRBC Pct Auto 0.0 (Ref Range: 0.0-0.2 /100WBC) 0.0 (Ref Range: 0.0-0.2 /100WBC) 0.0 (Ref Range: 0.0-0.2 /100WBC) Neutrophils Absolute Auto 2.5 (Ref Range: 2.0-8.3 x10*3/uL) 3.2 (Ref Range: 2.0-8.3 x10*3/uL) 2.3 (Ref Range: 2.0-8.3 x10*3/uL) Imm Gran Abs Auto 0.01 (Ref Range: 0.00-0.03 X10*3/uL) 0.02 (Ref Range: 0.00-0.03 X10*3/uL) 0.01 (Ref Range: 0.00-0.03 X10*3/uL) Lymphocytes Absolute Auto 1.8 (Ref Range: 1.2-4.9 X10*3/uL) 1.9 (Ref Range: 1.2-4.9 X10*3/uL) 1.2 (Ref Range: 1.2-4.9 X10*3/uL) Monocytes Absolute Auto 0.5 (Ref Range: 0.1-1.2 X10*3/uL) 0.6 (Ref Range: 0.1-1.2 X10*3/uL) 0.6 (Ref Range: 0.1-1.2 X10*3/uL) Eosinophils Absolute Auto 0.1 (Ref Range: 0.0-0.4 X10*3/uL) 0.1 (Ref Range: 0.0-0.4 X10*3/uL) 0.0 (Ref Range: 0.0-0.4 X10*3/uL) Basophils Absolute Auto 0.0 (Ref Range: 0.0-0.2 X10*3/uL) 0.0 (Ref Range: 0.0-0.2 X10*3/uL) 0.0 (Ref Range: 0.0-0.2 X10*3/uL) NRBC Abs Auto 0.000 (Ref Range: 0.0-0.012 X10*3/uL) 0.000 (Ref Range: 0.0-0.012 X10*3/uL) 0.000 (Ref Range: 0.0-0.012 X10*3/uL) Assessment: * Assessment: 1.?Severe episode of recurre nt major depressive disorder, with psychotic features - F33.3 (Primary)???Notes :Her severe depression is well controlled. She is not suicidal at this time and has no thoughts of self-harm. She has been doing well lately. She is compliant with her psychiatric regimen.???2.?Hyperlipidemia - E78.5???Notes :Her lipids are currently stable and she is losing weight.? She will continue on the current diet without change.? No change in her medications was made.???3.?Overweight - E66.3???Notes :She is very slightly overweight and has lost 3 pounds.? We discussed her diet and nutrition. We reviewed her weight loss strategy.? She will continue to lose weight until her body mass index is in the center of the normal range.???4.?Panic disorder without agoraphobia - F41.0???Notes :She continues on her current medication. The problem is well controlled at this time.???5.?Sleep apnea, unspecified sleep apnea type - G47.30???Notes :She is sleeping well. She has CPAP. No change in her regimen was made today. Her family says she is not somnolent during the daytime.She is not using a CPAP machine at this time as she found it difficult to use and not effective.???6.?Depression - F32.9???Notes :Her depression is stable and controlled and she seems to be compliant with her medications. She did not sound suicidally depressed today. I detected no psychotic thinking. She will continue on current medications. Her family will call me at once if she becomes disoriented or suicidal.???7.?Anemia - D64.9???Notes :he denies any recent bleeding. A CBC has been ordered prior to her next visit.???8.?Cerebellar ataxia - G11.9???Notes :She and her family say that the ataxia has resolved.? She is now able to walk safely.? The CT scan of the brain showed no significant abnormalities.???9.?Tobacco dependence - F17.200???Notes :She reports smoking resumption. We discussed several issues of abstinence and made a plan to cut down by one cigarette per day and eventually stop.??? Plan: * Treatment: 2.?Hyperlipidemia?LAB: PROFILE, FASTING (COMPREHENSIVE METABOLIC) ?LAB: CBC WITH AUTO DIFF ?LAB: Lipid Panel 3.?Overweight?LAB: PROFILE, FASTING (COMPREHENSIVE METABOLIC) ?LAB: CBC WITH AUTO DIFF ?LAB: Lipid Panel 4.?Others? Continue dilTIAZem HCl ER Beads Capsule Extended Release 24 Hour, 240 mg, TAKE 1 CAPSULE BY MOUTH DAILY;?Continue OXcarbazepine Tablet, 600 mg, TAKE 1 TABLET BY MOUTH THREE TIMES DAILY FOR 7 DAYS;?Continue KlonoPIN Tablet, 0.5 MG, 1 tablet, Orally, twice a day.?? * Procedure Codes:?99296 PHONE E/M BY PHYS 21-30 MIN * Preventive Medicine:? ??Counseling:?Care goal follow-up plan:?Counseling for abnormal BMI given?Yes ?Above Normal BMI Follow-up?Dietary management education, guidance, and counseling, Dietary needs education, Exercise promotion: strength training, Exercise promotion: stretching, Feeding regime, Giving encouragement to exercise, Lifestyle education regarding diet, Nutrition / feeding management, Nutrition therapy, Prescribed activity/exercise education, Prescribed diet education, Prescribed dietary intake, Special diet education, Weight monitoring , Intervention, Order not done: Medical or Other reason not done ?Smoking/Tobacco Use?Patient counseled on the dangers of tobacco use and urged to quit.?12/08/2023 ?Patient Lifestyle Goals?Patient wants to quit ?Treatment Goals?Cut down by 1 cigarette a week, Set a quit date ?Barriers?Stress ?Self-Management Plan?Make a plan to cut down number of cigarettes over time and set a date to work towards quitting * Follow Up:?As Scheduled (Baker son: OV, Annual Exam) * Images: * Sign off status: Completed true * Provider:?Adam Warren MD Date:?11/23 Generated for Jonelle ramachandran/Cipriano/eTransmitting on:?04/12/2024 09:22 AM EST History and Physical Notes * HPI (History of Present Illness) Category Sub-Category Detail Notes Telehealth Location of [facility] rendering services:: {...} [address] [place] [id number] Location of patient:: address listed in demographics for today's visit Patient identification confirmed using:: Name, Telehealth method:: Telephone only. Fouzia ent not visible to care provider. Consent:: Patient verbally c onsented to treatment, Patient verbally consented to billing insurance company, Patient informed of any privacy concerns related to method of visit Total time spent with patient (mins): 22
--- OUTSIDE RECORDS SUMMARY | 2024-04-12 09:23 | XMS_ITS | Clinical Summary ---
Author Organization [facility] Address [address] [place] [address] Phone Care Team Providers Care Air Deodorizer Servicer Name Role Phone Adam Warren MD Primary Care Provider [phone] Allergies No known active allergies Medications Simvastatin 40 MG/5ML suspension 40 mg BEDTIME (route: oral) 9 Active OXcarbazepine (TRILEPTAL) 600 MG tablet 600 mg 2 TIMES DAILY (route: oral) 0 Active Omeprazole 20 MG Tablet Delayed Release Dispersible 20 capsule DAILY (route: oral) 9 Active hydrOXYzine (ATARAX) 10 MG tablet 10 mg DIRECTED (route: oral) 9 Active docusate sodium (DOK) 100 MG capsule 100 mg DIRECTED (route: oral) 9 Active dilTIAZem CD (CARDIZEM CD) 240 MG 24 hr capsule 240 capsule DAILY (route: oral) 9 Active clonazePAM (KlonoPIN) 1 MG dispersible tablet 1 mg EVERY PM (route: oral) 9 Active citalopram (CeleXA) 20 MG tablet 20 mg DAILY (route: oral) 9 Active benztropine (COGENTIN) 1 MG tablet 1 mg 2 TIMES DAILY (route: oral) 9 Active perphenazine 4 MG tablet Take 4 mg by mouth in the morning and 4 mg in the evening. 4 Active Active Problems Problem Noted Date Diagnosed Date CT of abdominal wall abnormal 05/27/2023 Acute hyponatremia 05/27/2023 Anterior displaced fracture of sternal end of left clavicle, initial encounter for closed fracture 05/27/2023 Hypertension 05/27/2023 Gastroesophageal reflux disease 05/27/2023 FH: Depression 05/27/2023 Anxiety 05/27/2023 Immunizations Name Administration Dates Next Due Influenza (IM) Preservative Free 12/31/2015 Influenza, MDCK, PF, Quadrivalent 12/26/2020 Shingrix 05/08/2022 Family History Medical History Relation Comments Hypertension Father Diabetes Mother Hypertension Mother Relation Status Comments Father Mother Social History Tobacco Use Types Packs/Day Years Used Date Smoking Tobacco: Every Day Cigarettes Tobacco Cessation:Ready to Q uit: No; Counseling Given: No Alcohol Use Standard Drinks/Week Comments Yes 0 (1 standard drink = 0.6 oz pur e alcohol) Comments Unknown Sex and Gender Information Value Date Recorded Sex Assigned at Not on file Legal Sex Female 8:37 AM EDT Gender Identity Not on file Sexual Orientation Not on file Last Filed Vital Signs Vital Sign Reading Time Taken Comments Blood Pressure 112/60 05/28/2023 2:31 PM EDT Pulse 66 05/28/2023 2:31 PM EDT Temperature - - Respiratory Rate - - Oxygen Saturation 99% 05/28/2023 2:31 PM EDT Inhaled Oxygen Concentration - - Weight 62.1 kg (137 lb) 05/28/2023 2:31 PM EDT Height - - Body Mass Index - - Plan of Treatment Health Maintenance Due Date Last Done Comments Breast Cancer Screening 1965 Pneumococcal Vaccine: Pediat rics (0 to 5 Years) and At-Risk Patients (6 to 64 Years) (1 of 2 - PCV) 1973 Hepatitis B Vaccine (1 of 3 - 19+ 3-dose series) 1986 Colorectal Cancer Screening: Annual FOBT 2016 Colorectal Cancer Screening: Colonoscopy 2016 Colorectal Cancer Screening: Sigmoidoscopy 2016 Influenza Vaccine (#1) 2023 12/26/2020, 2015 Insurance [place] Care Teams Air Deodorizer Servicer Relationship Specialty Start Date End Date Adam Warren MD [address] [place] [address] , [address] [place] [address] PCP - General Medical Oncology 10/07/22
--- OUTSIDE RECORDS SUMMARY | 2024-04-12 09:23 | XMS_ITS | Clinical Summary ---
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 Name Role Phone Unavailable Primary Care Provider Unavailabl e Immunizations Name Administration Dates Next Due Influenza Injectable Quadriv alant Preservative Free IIV4 MDCK 12/26/2020 Influenza, seasonal, injectable, preservative fr ee 12/31/2015 Zoster, Recombinant 05/08/2022 Social History Tobacco Use Types Packs/Day Years Used Date Smoking Tobacco: Never Assessed Comments Unknown Sex and Gender Information Value Date Recorded Sex Assigned at Female 05/08/2022 1:53 PM EDT Legal Sex Female 1:38 PM EDT Gender Identity Female 05/08/2022 1:53 PM EDT Sexual Orientation Bisexual 05/08/2022 1: 53 PM EDT Plan of Treatment Health Maintenance Due Date Last Done Comments CT Colonography 1967 Colonoscopy 1967 Colorectal Cancer Screening 1967 Depression Screening 1967 FIT DNA/Cologuard 1967 FIT 1967 FOBT 1967 HIV Screening 1967 SDOH Screening 1967 Sigmoidoscopy 1967 Alcohol/Substance Use Screening 1979 Tobacco Screening 1979 Hepatitis C Screening 1985 DTaP/Tdap/Td Vaccines (1 - Tdap) 1986 Hepatitis B Vaccines (1 of 3 - 19+ 3-dose series) 1986 Pap Smear 1988 Cervical Cancer Screening 1997 HPV/Cotest 1997 Mammogram 2007 Pneumococcal Vaccine: 50+ Years (1 of 1 - PCV) 2017 Zoster Vaccines (2 of 2) 07/03/2022 05/08/2022 COVID-19 Vaccine (2 - 2023-2 5 season) 2023 08/15/2020 Influenza Vaccine (#1) 2023 1, 12/31/2015 RSV Patients and Patients Aged 60 years or older (1 - 1-dose 75+ series) 2042 HIB Vaccines Aged Out No longer eligi ble based on patient's age to complete this topic HPV Vaccines Aged Out No longer eligi ble based on patient's age to complete this topic Hepatitis A Vaccines Aged Out No long er eligible based on patient's age to complete this topic IPV Vaccines Aged Out No longer eligi ble based on patient's age to complete this topic Meningococcal Vaccine Aged Out No cameron woody eligible based on patient's age to complete this topic RSV under 20 months Aged Out No longe r eligible based on patient's age to complete this topic Rotavirus Vaccines Aged Out No longer eligible based on patient's age to complete this topic Insurance STANDARD
[2024-04-12 11:02] LABS: MANUAL DIFF FLAG NO
[2024-04-12 11:15] LABS: Basophils Percent Auto 0.4 % (0-2); Eosinophils Absolute Auto 0.1 X10*3/uL (0.0-0.4); Eosinophils Percent Auto 2.2 % (0-4); Hemoglobin 12.1 g/dl (12.0-16.0); Imm Gran Abs Auto 0.01 X10*3/uL (0.00-0.03); Imm Gran Pct Auto 0.2 % (0.0-0.4); Lymphocytes Absolute Auto 1.6 X10*3/uL (1.2-4.9); Lymphocytes Percent Auto 30.9 % (20-40); Mean Corpuscular HGB Conc 33.6 g/dl (31.0-35.0); Mean Corpuscular Hemoglobin 33.2 pg (27.0-33.0); Mean Corpuscular Volume 98.6 fL (80.0-98.0); Mean Platelet Volume 10.4 fL (9.4-12.3); Monocytes Absolute Auto 0.5 X10*3/uL (0.1-1.2); Monocytes Percent Auto 8.9 % (2-11); Neutrophils Absolute Auto 2.9 x10*3/uL (2.0-8.3); Neutrophils Percent Auto 57.4 % (45-73); Platelet Count 167 X10*3/uL (160-400); Red Blood Count 3.65 X10*6/uL (4.20-5.50); Red Cell Distribution Width 12.8 % (11.0-16.0); White Blood Count 5.1 X10*3/uL (4.8-10.8)
[2024-04-12 12:20] LABS: Alanine Aminotransferase 10 U/L (0-31); Albumin Level 4.2 g/dL (3.5-5.0); Alkaline Phosphatase 102 U/L (39-117); Anion Gap 12 (12-20); Aspartate Amino Transferase 24 U/L (5-31); Bilirubin Total 0.3 mg/dL (0.0-1.0); Blood Urea Nitrogen 14 mg/dL (9-16); Calcium 9.1 mg/dL (8.4-10.2); Carbon Dioxide 26 mmol/L (22-29); Chloride 104 mmol/L (96-108); Cholesterol 153 mg/dL (<200); Estimated Glomerular Filt Rate > 60; Glucose Fasting 91 mg/dL (60-99); HDL Cholesterol 55 mg/dL (>40); LDL Cholesterol Calculated 88 mg/dL (<100); Potassium 4.2 mmol/L (3.3-5.1); Sodium 138 mmol/L (135-145); Total Protein 7.8 g/dL (6.5-8.0); Triglycerides 54 mg/dL (<150)
== END 2024-04-12 08:52 | disposition home or self-care (01) ==
LOC: HO.HHCL 08:51
PROVIDERS: Visit Provider Internal Medicine Medical Oncology
DX: F33.3 Major depressive disorder, recurrent, severe with psychotic symptoms (principal); E78.5 Hyperlipidemia, unspecified; E66.3 Overweight
CPT/HCPCS: 36415; 80053; 80061; 85025

== ENCOUNTER 2024-08-10 11:19 | Outpatient (REF) | payer MEDICAID, SELFPAY ==
--- OUTSIDE RECORDS SUMMARY | 2017-02-09 12:01 | XMS_ITS | Continuity of Care Document ---
Author Organization [facility] Address [address] [place] [address] Phone Care Team Providers Care Tobacco Sorter Name Role Phone Marlene Erickson MD Unavailable Unavailable Medications Medication Instructions Dosage Effective Dates (start - stop) Status Comments CellCept 500 mg tablet take 2 tablet by oral route 2 times every day 1000 MG - Active nifedipine ER 30 mg tablet,extended release 24 hr take 1 tablet (30MG) by ORAL route every day - Active sulfamethoxazole 800 mg-trimethoprim 160 mg tablet take 1 tablet by oral route every 12 hours 1.00 tablet - Active Prilosec 20 mg capsule,delayed release Take 1 tablet PO daily before breakfast - Active Procedures Procedure Date OFFICE/OUTPATIENT VISIT, EST IMMUNIZATION ADMIN PNEUMOCOCCAL VACC, PED <5 IMMUNIZATION ADMIN, EACH ADD Influenza Inj Quad 36 Months & > 2016 OFFICE/OUTPATIENT VISIT, EST OFFICE/OUTPATIENT VISIT, EST IMMUNIZATION ADMIN FLU VACCINE, 3 YRS & >, IM ROUTINE VENIPUNCTURE PREV VISIT, EST, AGE 40-64 OFFICE/OUTPATIENT VISIT, EST OFFICE/OUTPATIENT VISIT, EST HEMOGLOBIN CAPILLARY BLOOD DRAW OFFICE/OUTPATIENT VISIT, EST ROUTINE VENIPUNCTURE HEMOGLOBIN CAPILLARY BLOOD DRAW OFFICE/OUTPATIENT VISIT, EST OFFICE/OUTPATIENT VISIT, EST OFFICE/OUTPATIENT VISIT, EST OFFICE/OUTPATIENT VISIT, EST URINALYSIS NONAUTO W/O SCOPE OFFICE/OUTPATIENT VISIT, EST HEMOGLOBIN CAPILLARY BLOOD DRAW OFFICE/OUTPATIENT VISIT, EST HEMOGLOBIN CAPILLARY BLOOD DRAW OFFICE/OUTPATIENT VISIT, EST FLU VACCINE NO PRESERV 3 & > IMMUNIZATION ADMIN CHEST X-RAY MEASURE BLOOD OXYGEN LEVEL OFFICE/OUTPATIENT VISIT, EST ROUTINE VENIPUNCTURE Send Out OFFICE/OUTPATIENT VISIT, EST OFFICE/OUTPATIENT VISIT, EST SPUN MICROHEMATOCRIT OFFICE/OUTPATIENT VISIT, EST OFFICE/OUTPATIENT VISIT, EST ROUTINE VENIPUNCTURE OFFICE/OUTPATIENT VISIT, EST OFFICE/OUTPATIENT VISIT, NEW IMMUNIZATION ADMIN TD VACCINE > 7, IM Advance Directives Directive Yes / No Effective Date File Name No Information Encounters Encounter Description Practice Location Reason(s) For Visit Diagnoses Date Provider Providers Copied on Encounter [facility], [address] [place] [address], [id number], [place] tel:[phone] [facility] No Information 7 McVea Marlene. [address] [place] [address], [id number] [address] [place] [address], [id number], [place]. tel:[phone] [facility], [address] [place] [address], [id number], [place] tel:[phone] [facility]X No Information 7 Dante Maravilla. [address] [place] [address], [id number] 0, [place], [address], [place]. tel:[phone] OFFICE/OUTPA TIENT VISIT, [facility], [address] [place] [address], [place], [place], [id number], [place] tel:[phone] LSX hospital follow up (chief complaint) SclerodermaPu lmonary fibrosisPulmo nary hypertensionC ellulitis left hand Apr-2 0-201 7 Deteva Maravilla. [address] [place] [address], [id number] 0OW, [place], [address], [place]. tel:[phone] [facility], [address] [place] [address], [place], [place], [id number], [place] tel:[phone] LSX No Information Apr-1 8-201 7 Dante Maravilla. [address] [place] [address], [id number] 0OW, [place], [address], [place]. tel:[phone] OFFICE/OUTPA TIENT VISIT, [facility], [address] [place] [address], [place], [place], [id number], [place] tel:[phone] LSX swollen left hand (chief complaint)Dy spnea (chief complaint)GE RD (chief complaint) SclerodermaCH FCellulitisGE RD Apr-0 4-201 7 Deteva Maravilla. [address] [place] [address], [id number] 0OW, [place], [address], [place]. tel:[phone] [facility], [address] [place] [address], [place], [place], [id number], [place] tel:[phone] LSX Elevated blood protein Mar-2 3-201 6 Dethlefchema Maravilla. [address] [place] [address], [id number] 0OW, [place], [address], [place]. tel:[phone] OFFICE/OUTPA TIENT VISIT, [facility], [address] [place] [address], [place], [place], [id number], [place] tel:[phone] LSX cough (chief complaint)ra sh (chief complaint) SclerodermaSc reening for breast cancer Apr- 2 6 Dante Maravilla. [facility] [place] [address], [id number] 0, [place], [address], [place]. tel:[phone] PREV VISIT, EST, AGE 40-64 [facility], [address] [place] [address], [place], [place], [id number], [place] tel:[phone] Title X PAP test (chief complaint) Well adult exam 5 Adal Josue. [address] [place] [address], [id number] 0, [place], [place], [id number], [place]. tel:[phone] OFFICE/OUTPA TIENT VISIT, EST [facility], [address] [place] [address], [place], [place], [id number], [place] tel:[phone] LSX Cough and chest pain (chief complaint) Sinusitis, acute 0- 5 Gruop Solis. [address] [place] [address], [id number] 0, [place], [place], [id number], [place]. tel:[phone] OFFICE/OUTPA TIENT VISIT, EST [facility], [facility] [address], [place], [place], [id number], [place] tel:[phone] Quick Sick - LSX rash on right leg (chief complaint) Rash 4 Buschkemper Cande. [facility] [place] [address], [id number] 0, [place], [place], [id number], [place]. tel:[phone] OFFICE/OUTPA TIENT VISIT, EST [facility], [address] [place] [address], [place], [place], [id number], [place] tel:[phone] LSX cough (chief complaint)An emia (chief complaint)Sc leroderma (chief complaint) Anemia, Fe deficiencyScl erodermaHCMGE RD 3 Dante Maravilla. [address] [place] [address], [id number] [address] [place] [address], [id number], [place]. tel:[phone] [facility], [address] [place] [address], [place], [place], [id number], [place] tel:[phone] LSX Circumscribed scleroderma 3 Arniesixto Duran. [address] [place] [address], [id number] 0, [place], [place], [id number], [place]. tel:[phone] OFFICE/OUTPA TIENT VISIT, [facility], [address] [place] [address], [place], [place], [id number], [place] tel:[phone] LSX f/u anemia and scleroderma (chief complaint) Anemia, Fe deficiencyScl erodermaCough 2 Dante Maravilla. [address] [place] [address], [id number] 0, [place], [address], [place]. tel:[phone] OFFICE/OUTPA TIENT VISIT, [facility], [address] [place] [address], [id number], [place] tel:[phone] LSX Follow-up Bartholins Cyst (chief complaint) Cyst of Bartholin's gland 2 No Information OFFICE/OUTPA TIENT VISIT, [facility], [address] [place] [address], [id number], [place] tel:[phone] LSX F/U (chief complaint)Fo llow-up Bartholins Cyst (chief complaint) AnemiaCyst of Bartholin's gland 2 No Information OFFICE/OUTPA TIENT VISIT, [facility], [address] [place] [address], [id number], [place] tel:[phone] LSX Bartholin Cyst (chief complaint)Pr ocedure Note (chief complaint) Cyst of Bartholin's gland 2 Adeel Feliz. [address] [place] [address], [id number] 0OW, [place], [address], [place]. tel:[phone] [facility], [facility] [address], [place], [place], [id number], [place] tel:[phone] LSX rt side of vagina swollen/pain (chief complaint) HCMCyst of Bartholin's gland 2 No Information OFFICE/OUTPA TIENT VISIT, EST [facility], [facility] [place] [address], [place], [place], [id number], [place] tel:[phone] LSX swelling in vaginal area (chief complaint) Cyst of Bartholin's glandDysuria 2 Carmelo Dennison. [address] [place] [address], [id number] 0OW, [place], [place], [id number], [place]. tel:[phone] OFFICE/OUTPA TIENT VISIT, EST [facility], [address] [place] [address], [place], [place], [id number], [place] tel:[phone] LSX anemia check (chief complaint)Ur inary urgency (chief complaint) HCMAnemia, Fe deficiencyScl erodermaHCM 2 Dethlefchema Maravilla. [address] [place] [address], [id number] 0OW, [place], [address], [place]. tel:[phone] OFFICE/OUTPA TIENT VISIT, EST [facility], [address] [place] [address], [place], [place], [id number], [place] tel:[phone] LSX medication refill (chief complaint)br onchitis (chief complaint) Anemia, Fe deficiencyScl erodermaAnemi a, unspecifiedIn fluenza Vaccine 1 Dethlgabriel Maravilla. [address] [place] [address], [id number] 0OW, [place], [address], [place]. tel:[phone] [facility], [facility] [place] [address], [place], [id number], [place] tel:[phone] LSX Cough 1 Luisgabriel Maravilla. [address] [place] [address], [id number] 0, [place], [address], [place]. tel:[phone] [facility], [address] [place] [address], [place], [place], [id number], [place] tel:[phone] Radiology - LSX No Information 1 Naresheva Maravilla. [address] [place] [address], [id number] 0, [place], [address], [place]. tel:[phone] [facility], [address] [place] [address], [place], [place], [id number], [place] tel:[phone] LSX Colon cancer screening 1 [facility]. [address] [place] [address], [place], [place], [id number], [place]. tel:[phone] [facility], [address] [place] [address], [place], [place], [id number], [place] tel:[phone] LSX Anemia, Fe deficiency 1 Naresheva Maravilla. [address] [place] [address], [id number] 0, [place], [address], [place]. tel:[phone] OFFICE/OUTPA TIENT VISIT, EST [facility], [facility] [place] [address], [place], [place], [id number], [place] tel:[phone] LSX swelling on left side of face, cough (chief complaint) Circumscribed sclerodermaAn emia, unspecifiedAn emia, unspecifiedNu mbnessCough 1 Dethlefs Taiwo. [address] [place] [address], [id number] 0, [place], [address], [place]. tel:[phone] [facility], [facility] [place] [address], [place], [place], [id number], [place] tel:[phone] Quick Sick - LSX swelling on left side of face, cough (chief complaint) Numbness 1 Tavares Bland. [address] [place] [address], [id number] 0, [place], [place], [id number], [place]. tel:[phone] OFFICE/OUTPA TIENT VISIT, [facility], [address] [place] [address], [place], [place], [id number], [place] tel:[phone] LSX Pap Smear (chief complaint) Well adult exam 0 Rosalia Schaffer. [address] [place] [address], [id number] 0, [place], [address], [place]. tel:[phone] OFFICE/OUTPA TIENT VISIT, [facility], [address] [place] [address], [place], [place], [id number], [place] tel:[phone] LSX hands swelling (chief complaint) Raynaud's syndromeAnemi a-fe deficiency 0 Dante Maravilla. [address] [place] [address], [id number] 0, [place], [address], [place]. tel:[phone] OFFICE/OUTPA TIENT VISIT, [facility], [address] [place] [address], [place], [place], [id number], [place] tel:[phone] LSX arms problem (chief complaint) No Information 200 9 Dante Maravilla. [address] [place] [address], [id number] 0, [place], [address], [place]. tel:[phone] OFFICE/OUTPA TIENT VISIT, [facility], [address] [place] [address], [place], [place], [id number], [place] tel:[phone] LSX No Information 6200 9 Tavares Bland. [address], [id number] [address] [place] [address], [id number], [place]. tel:[phone] OFFICE/OUTPA TIENT VISIT, [facility], [address], [place], [place], [id number], [place] tel:[phone] LSX No Information 8 No Information Family History Family Member Type Diagnosis Age At Onset Negative family hx Problem (finding) Dyslipidemia Negative family hx Problem (finding) Allergies Negative family hx Problem (finding) CAD Negative family hx Problem (finding) Anesthesia proble ms Negative family hx Problem (finding) Tuberculosis Negative family hx Problem (finding) Hypertension Negative family hx Problem (finding) VA or CAD Negative family hx Problem (finding) Stroke mother Problem (finding) diabetes melli tus in first degree relative Negative family hx Problem (finding) Renal disease Negative family hx Problem (finding) Coronary artery d isease father Problem (finding) cancer of colon 84 Negative family hx Problem (finding) Anemia Negative family hx Problem (finding) Asthma Negative family hx Problem (finding) Bleeding disorder s Negative family hx Problem (finding) Cancer Immunizations Vaccine Date Status Comments Influenza, injectable, quadrivalent, preservative free, 3 yrs or older administered Source: New Immuniz ation Record Pneumococcal conjugate PCV 13 administere d Source: New Immunization Record Influenza, seasonal, injectable administered Source: New Immuniza tion Record flu (split) preservative mica e, 3 yrs or older administered Source: New Immuniza tion Record Payers Payer name Insurance type Covered constitution party ID Authoriza tion(s) Slide F - No Active Slide 09 Slide F - No Active Slide 09 Slide F - No Active Slide 09 Slide F - No Active Slide 09 Social History Type Description Quantity Date Captured Comments Sex Female Smoking Status No Information Sexual Orientation Choose not to disclose Gender Identity Female Chief Complaint And Reason For Visit No Information Reason For Referral Reason For Referral No Information Plan Of Treatment Date Type Action Status Referral ordered Future Order: Lab Order Protein Electrophoresis, Serum ([id number]), Collected on: , Sent on: Sent Future Order: Lab Order Pap elda r (PAP), Collected on: , Sent on: Sent History Of Present Illness Encounter Date Complaint History Of Prese nt Illness [facility] 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 She feels better now than prior to hospital and is using 02. She does not have f/u with pulmonology but has f/u with rheumatology. swollen left hand 3 day history of swollen left hand with associated pain and redness. Denies trauma. No fever, chills. No history of similar problem. Has been stable since it started. Dyspnea SOB with walking over the last 1-2 months. Has a mild associated cough. No mucous. No blood. Gets chest pressure when she is very short of breath. Lives with . Has 3 children 24, 22, 21. GERD Has had frequent GERD day and night over the last year. Not taking medications of any kind. Drinks caffienated beverages. cough Has had a cough over the last 6 months which has been intermittent - worse now - white phlegm. Mild associated SOB. Has taken nyquil which does not help much. rash Itchy rash on ar ms and back of neck over the last several days. No new meds or foods or inciting factors that she can think of. PAP test Pt is a her e for [employer] with no complaints. Discussed healthy diet and exercise. Discussed perimenopause as periods are becoming more abnormal. Some months she'll have it and others she won't. Cough and chest pain Patient hav ing a lot of cough and sore throat. No fevers. SHe is taking medication XL3 for her symptoms. Cough is dry and and productive. Phelgm is green or white she she produces phlegm. No ear pain. No n/v. No sick contacts. She did not recieve the flu shot this year. rash on right leg ACUTE CLINIC V IS[facility] for rash to right lower leg past couple days. Feels sore, swollen and itchy. No new meds, soaps, creams, shaving regime, clothes, irritation or trauma recalled. No one else in home with rash. cough Continues with c hronic cough. The cough is mild and intermittent. Tessalon and phenergan have not been helpful. She had spirometry 01/2012 that showed a restrictive component. Anemia Periods are not as heavy as previously. She stopped taking iron about 2 months ago. Scleroderma Denies dysphagia , but has GERD for which she does not take anything. Denies SOB with exercise. f/u anemia and scleroderma Shellie is here for f/u of her anemia and scleroderma. She has noted white anjum on her hand, back, and legs - itchy in those areas. This has been over the last month. She has a pending Follow-up Bartholins Cyst 46 y/o female presenting for follow-up of right sided bartholin's cyst that was lanced and drained 05/08/2011. A Word catheter was placed at that time. Today, the patient is doing well and has no complaints. Her vulvar pain has diminished. The cather remains in place. Has noticed only scant yellow drainage from wound. Denies bleeding. No fevers or chills. F/U Follow-up Bartholins Cyst 46 y/o female presenting for follow-up of right sided bartholin's cyst that was lanced and drained 05/08/2011. A Word catheter was placed at that time. Today, the patient is doing well and has no complaints. Her vulvar pain has diminished. The cather remains in place. Has noticed only scant yellow drainage from wound. Denies bleeding. No fevers or chills. Eager to have catheter removed. Bartholin Cyst 46 y/o female presents for bartholin cyst I&D and insertion of word catheter. Pt evaluated on 05/04 for pain on right side of vagina that began acutely 5 days ago. Pt also noticed swelling on right side of vagina. Pt has not ever had this pain or swelling before. Denies fever, chills, nausea, or vomiting. Denies drainage from swelling. Denies abnormal vaginal discharge. She was brought in today for I&D. Procedure Note After R/B/A disc ussed with the pt her consent was obtained. The area was then prepped with betadine. 2% lidocaine with epinephrine was injected subdermally. A small incision was made with a 15 blade scalpel and a word catheter was inserted to cyst without difficulty. The balloon was inflated with 3 cc of saline. No blood loss. The pt tolerated this well. No complications. Dr. Murphy was present for procedure. rt side of vagina swollen/pain 4 6 y/o female presents with pain on right side of vagina that began acutely on Thursday. Pt also noticed swelling on right side of vagina. Pt has not ever had this pain or swelling before. Denies fever, chills, nausea, or vomiting. Denies drainage from swelling. Denies abnormal vaginal discharge. swelling in vaginal area since S at having swelling on right side of vagina, never had before, is not worsening. not trying anything for pain. difficult walking due to the pain anemia check Periods are norm al. She never did FOBT cards. She feels well except she still has numbness left side of her face and a tight feeling of skin. She never had PFTs or rheumatology appt. No SOB, but still has some cough which is mild. Urinary urgency Has urinary urge ncy on occasion but no incontinence. This is mild and infrequent. medication refill Ran out of iro n 1 week ago. Has not been taking other medications. Continues with a sense of numbness of her left cheek and perioral area. Has not obtained FOBT cards. bronchitis swelling on left renzo e of face, cough Shellie was seen in the acute clinic 1 week ago for 1 month of cough, 1 week of complete numbness of left mandibular region. She did not go to the ER because she did not have money. She was seen by the wafer production lead worker for the potential diagnosis of scleroderma. The cough has been present for 2 months without associated phlegm, fever, or SOB. The cough is variable in intensity. 3 week history of numbness in the left face - worse by the mouth. No trauma. Numbness is stable. swelling on left renzo e of face, cough Acute clinic pt reports 1 month of cough, 1 week of complete numbness of left mandibular region Pap Smear The gynecologic history and ROS is positive for having a new sexual partner in the last 90 days. The gynecologic history and ROS is negative for desiring control, having used BCPs, having used condoms, having received Depo Provera, having had an IUD, having used other BC methods, having had problems with BC, vaginal itching, vaginal discharge, urinary incontinence, dysuria, breast problems, hot flashes, dyspareunia, history of STDs, history of an abnormal PAPs, prolonged periods, heavy periods, frequent periods, oligomenorrhea, dysmenorrhea and having their last period more than one month ago. The LMP was 06/25/2009. hands swelling Here for f/u of swelling of hands. Had eval for this with blood work 2 months ago that showed iron deficiency anemia. She was started on iron for the anemia and nifedipine for Raynaud's. Symptoms in hands and feet slightly worse. Periods last 6 days with heavy bleeding for 1st 3 days only. arms problem c/o 12 month his tory of both hands (R>L) with swelling in the morning and slight numbness and white followed bypurplish discoloration. Mild wrist pain. Sx slightly worse with cold. Feet recently started with similar sx. No medications. First time for these sx. No aleviating factors. Lasts 30 minutes. 30 minutes of morning stiffness. Was diagnosed with CTS on 2 different visits and Rxed ibuprofen and diclofenac w/o relief. Rxed cock-up splints which she did not buy. Functional Status Date Functional Assessmen t No Information Instructions Date Instruction Additional Infor mation No Information Assessments Type Assessment Date No Information Patient Care Teams Name Effective Dates (start - stop) Status Members No Information
[2024-08-10 13:32] LABS: MANUAL DIFF FLAG NO
[2024-08-10 13:39] LABS: Basophils Percent Auto 0.3 % (0-2); Eosinophils Absolute Auto 0.2 X10*3/uL (0.0-0.4); Eosinophils Percent Auto 2.3 % (0-4); Hematocrit 33.7 % (37.0-47.0); Hemoglobin 11.4 g/dl (12.0-16.0); Imm Gran Abs Auto 0.01 X10*3/uL (0.00-0.03); Imm Gran Pct Auto 0.2 % (0.0-0.4); Lymphocytes Absolute Auto 2.6 X10*3/uL (1.2-4.9); Lymphocytes Percent Auto 40.2 % (20-40); Mean Corpuscular HGB Conc 33.8 g/dl (31.0-35.0); Mean Corpuscular Hemoglobin 32.9 pg (27.0-33.0); Mean Corpuscular Volume 97.1 fL (80.0-98.0); Mean Platelet Volume 10.1 fL (9.4-12.3); Monocytes Absolute Auto 0.6 X10*3/uL (0.1-1.2); Monocytes Percent Auto 8.5 % (2-11); Neutrophils Absolute Auto 3.1 x10*3/uL (2.0-8.3); Neutrophils Percent Auto 48.5 % (45-73); Platelet Count 156 X10*3/uL (160-400); Red Blood Count 3.47 X10*6/uL (4.20-5.50); Red Cell Distribution Width 12.9 % (11.0-16.0); White Blood Count 6.5 X10*3/uL (4.8-10.8)
[2024-08-10 14:17] LABS: Alanine Aminotransferase 12 U/L (0-31); Albumin Level 4.4 g/dL (3.5-5.0); Alkaline Phosphatase 104 U/L (39-117); Anion Gap 13 (12-20); Aspartate Amino Transferase 32 U/L (5-31); Bilirubin Total 0.3 mg/dL (0.0-1.0); Blood Urea Nitrogen 11 mg/dL (9-16); Calcium 9.5 mg/dL (8.4-10.2); Carbon Dioxide 24 mmol/L (22-29); Chloride 103 mmol/L (96-108); Cholesterol 237 mg/dL (<200); Estimated Glomerular Filt Rate > 60; Glucose Fasting 122 mg/dL (60-99); HDL Cholesterol 58 mg/dL (>40); LDL Cholesterol Calculated 149 mg/dL (<100); Potassium 3.8 mmol/L (3.3-5.1); Sodium 136 mmol/L (135-145); Thyroid Stimulating Hormone 0.53 uIU/mL (0.32-4.0); Total Protein 7.4 g/dL (6.5-8.0); Triglycerides 154 mg/dL (<150)
== END 2024-08-10 11:20 | disposition home or self-care (01) ==
LOC: HO.HHCL 11:19
PROVIDERS: PCP Internal Medicine Medical Oncology; Visit Provider Internal Medicine Medical Oncology
DX: Z00.00 Encounter for general adult medical examination without abnormal findings (principal); R00.1 Bradycardia, unspecified
CPT/HCPCS: 36415; 80053; 80061; 84443; 85025

== ENCOUNTER 2024-12-27 13:22 | Outpatient (REF) | payer MEDICAID, SELFPAY ==
[2024-12-27 16:02] LABS: MANUAL DIFF FLAG NO
[2024-12-27 16:18] LABS: Hematocrit 34.6 % (37.0-47.0); Hemoglobin 11.6 g/dl (12.0-16.0); Imm Gran Abs Auto 0.02 X10*3/uL (0.00-0.03); Imm Gran Pct Auto 0.3 % (0.0-0.4); Lymphocytes Absolute Auto 2.8 X10*3/uL (1.2-4.9); Mean Corpuscular HGB Conc 33.5 g/dl (31.0-35.0); Mean Corpuscular Hemoglobin 33.0 pg (27.0-33.0); Mean Corpuscular Volume 98.6 fL (80.0-98.0); NRBC Abs Auto 0.000 X10*3/uL (0.0-0.012); NRBC Pct Auto 0.0 /100WBC (0.0-0.2); Platelet Count 154 X10*3/uL (160-400); Red Blood Count 3.51 X10*6/uL (4.20-5.50); White Blood Count 7.6 X10*3/uL (4.8-10.8)
--- OUTSIDE RECORDS SUMMARY | 2024-12-27 16:19 | XMS_ITS | Clinical Summary ---
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 Name Role Phone Unavailable Primary Care Provider Unavailabl e Immunizations Immunization Administration Dates Next Due Influenza Injectable Quadriv [...] Screening 1967 SDOH Screening 1967 Sigmoidoscopy 1967 Disability Screening 1967 Alcohol/Substance Use Screening 1979 Tobacco Screening 1979 Hepatitis C Screening 1985 DTaP/Tdap/Td Vaccines (1 - Tdap) 1986 Hepatitis B Vaccines (1 of 3 - 19+ 3-dose series) 1986 Pap Smear 1988 Cervical Cancer Screening 1997 HPV/Cotest 1997 Mammogram 2007 Pneumococcal Vaccine: 50+ Years (1 of 1 - PCV) 2017 Zoster Vaccines (2 of 2) 07/03/2022 05/08/2022 COVID-19 Vaccine (2 - 2024-2 6 season) 2024 08/15/2020 Influenza Vaccine (#1) 2024 1, 12/31/2015 RSV Patients and Patients Aged [...] patient's age to complete this topic Meningococcal B Vaccine Aged Out No l onger eligible based on patient's age to complete [...]
[2024-12-27 16:38] LABS: Alanine Aminotransferase 14 U/L (0-31); Albumin Level 4.6 g/dL (3.5-5.0); Alkaline Phosphatase 103 U/L (39-117); Anion Gap 12 (12-20); Aspartate Amino Transferase 32 U/L (5-31); Blood Urea Nitrogen 15 mg/dL (9-16); Calcium 9.3 mg/dL (8.4-10.2); Carbon Dioxide 27 mmol/L (22-29); Chloride 105 mmol/L (96-108); Cholesterol 148 mg/dL (<200); Estimated Glomerular Filt Rate > 60; HDL Cholesterol 58 mg/dL (>40); Potassium 3.6 mmol/L (3.3-5.1); Sodium 140 mmol/L (135-145); Total Protein 7.6 g/dL (6.5-8.0); Triglycerides 104 mg/dL (<150)
[2024-12-27 16:56] LABS: Thyroid Stimulating Hormone 0.70 uIU/mL (0.32-4.0)
== END 2024-12-27 13:23 | disposition home or self-care (01) ==
LOC: HO.HHCL 13:22
PROVIDERS: Visit Provider Registered Nurse Psychiatric/Mental Health
DX: Z79.899 Other long term (current) drug therapy (principal)
CPT/HCPCS: 36415; 80053; 80061; 82248; 84436; 84443; 85025